=== PATIENT | female | born 1980 | race Native Hawaiian/Other Pacific Islander ===

== ENCOUNTER 2016-10-02 21:42 | Emergency (ER) | payer BC ==
[2016-10-02 21:56] VITALS: BP 142/93; PULSE 104; RESP 18; TEMP 97.7
[2016-10-02] MEDS ORDERED: HYDROmorphone 2 MG/ML 1 ML SYRINGE IM STA (22:34)
[2016-10-02] MEDS ORDERED: DIAZEPAM 5 MG TAB PO STA (22:34)
--- NOTE | 2016-10-02 22:35 | ED ---
General Adult HPI - General Chief complaint: Back Pain/Injury Stated complaint: Back Pain Time Seen by Provider: 10/02/16 22:18 Source: patient, RN notes reviewed, old records reviewed Mode of arrival: wheelchair Limitations: no limitations - History of Present Illness Initial comments: This is a 36-year-old female the ER for evaluation. Patient coming in for evaluation of back pain, severe lower back pain. Neck pain that is chronic in nature secondary to herniated disks. Patient has no new trauma, no recent Tylenol as above O neurological complaints. She does complain of pain going down her left leg worse with activity. Pain was worse nighters ever been, she did have some pain over the holiday. He states she was at work today which is normal job for her and begin expanse increased back pain on the way home. No fevers. Denies drugs or alcohol - Related Data Home Medications Medication Instructions Recorded Confirmed Acetaminophen-Codeine 300-30mg 2 tab PO HS 10/02/16 10/02/16 [Tylenol #3] Amitriptyline HCl [Elavil] 25 mg PO HS 10/02/16 10/02/16 Hair Skin And Nails 1 tab PO DAILY 10/02/16 10/02/16 Methocarbamol [Robaxin] 250 mg PO HS 10/02/16 10/02/16 Montelukast [Singulair] 10 mg PO HS 10/02/16 10/02/16 Omeprazole [PriLOSEC] 20 mg PO BID 10/02/16 10/02/16 Allergies Allergy/AdvReac Type Severity Reaction Status Date / Time Sulfa (Sulfonamide Allergy Severe Anaphylaxis Verified 10/02/16 22:26 Antibiotics) Review of Systems ROS Statement: Those systems with pertinent positive or pertinent negative responses have been documented in the HPI. ROS Other: All systems not noted in ROS Statement are negative. Past Medical History Past Medical History: Asthma Additional Past Medical History / Comment(s): Back pain History of Any Multi-Drug Resistant Organisms: None Reported Past Surgical History: No Surgical Hx Reported Past Psychological History: No Psychological Hx Reported Smoking Status: Never smoker Past Alcohol Use History: Rare Past Drug Use History: None Reported General Exam - General Exam Comments Initial Comments: Negative straight leg raise, no neurological complaint or focal deficits found Limitations: no limitations General appearance: alert, in no apparent distress Head exam: Present: atraumatic, normocephalic, normal inspection Eye exam: Present: normal appearance, PERRL, EOMI. Absent: scleral icterus, conjunctival injection, periorbital swelling ENT exam: Present: normal exam, mucous membranes moist Neck exam: Present: normal inspection. Absent: tenderness, meningismus, lymphadenopathy Respiratory exam: Present: normal lung sounds bilaterally. Absent: respiratory distress, wheezes, rales, rhonchi, stridor Cardiovascular Exam: Present: regular rate, normal rhythm, normal heart sounds. Absent: systolic murmur, diastolic murmur, rubs, gallop, clicks GI/Abdominal exam: Present: soft, normal bowel sounds. Absent: distended, tenderness, guarding, rebound, rigid Extremities exam: Present: normal inspection, full ROM, normal capillary refill. Absent: tenderness, pedal edema, joint swelling, calf tenderness Back exam: Present: normal inspection Neurological exam: Present: alert, oriented X3, CN II-XII intact Psychiatric exam: Present: normal affect, normal mood Skin exam: Present: warm, dry, intact, normal color. Absent: rash Course Vital Signs 10/02/16 21:53 Temperature 97.7 F Pulse Rate 104 H Respiratory 18 Rate Blood Pressure 142/93 O2 Sat by Pulse 96 Oximetry - Reevaluation(s) Reevaluation #1: 10/03/16 00:47 Patient's pain is controlled this point Medical Decision Making - Medical Decision Making 36 female here for evaluation of acute on chronic back pain, patient's pain is now controlled, will continue to follow up on an outpatient basis - Lab Data Lab Results 10/02/16 10/02/16 Range/Units 23:18 23:18 Urine Color Yellow Urine Appearance Clear (Clear) Urine pH 6.5 (5.0-8.0) Ur Specific [place] 1.020 (1.001-1.035) Urine Protein Trace H (Negative) Urine Glucose (UA) Negative (Negative) Urine Ketones Negative (Negative) Urine Blood Negative (Negative) Urine Nitrate Negative (Negative) Urine Bilirubin Negative (Negative) Urine Urobilinogen 2.0 (<2.0) mg/dL Ur Leukocyte Esterase Negative (Negative) Urine HCG, Qual Not Detected (Not Detectd) Disposition Clinical Impression: Mechanical back pain, Strain of lumbar region, Lumbar radiculopathy, Degeneration of intervertebral disc Disposition: HOME SELF-CARE Condition: Good Instructions: Chronic Back Pain (ED), Acute Low Back Pain (ED) Referrals: Janell Arvizu MD [Primary Care Provider] - 1-2 days
[2016-10-02 23:29] LABS: Appearance,Urine Clear (Clear); Bilirubin,Urine Negative (Negative); Glucose,Urine (UA) Negative (Negative); Ketones,Urine Negative (Negative); Leukocyte Esterase,Urine Negative (Negative); Nitrite,Urine Negative (Negative); PH, Urine 6.5 (5.0-8.0); Protein,Urine Trace (Negative); UA Billing (MACRO vs. MICRO) CHEM
== END 2016-10-03 00:56 | disposition home or self-care (01) ==
LOC: EC 21:42
DX: S39.012A Strain of muscle, fascia and tendon of lower back, initial encounter (principal); M54.16 Radiculopathy, lumbar region; J45.909 Unspecified asthma, uncomplicated; Z79.891 Long term (current) use of opiate analgesic; Z79.899 Other long term (current) drug therapy; Z88.2 Allergy status to sulfonamides; X58.XXXA Exposure to other specified factors, initial encounter
CPT/HCPCS: 99283; 96372; 81003; 81025; 87086; J1170

== ENCOUNTER 2016-10-03 14:04 | Emergency (ER) | payer BC ==
[2016-10-03 15:15] VITALS: RESP 20
--- NOTE | 2016-10-03 16:55 | ED ---
General Adult HPI - General Chief complaint: Back Pain/Injury Stated complaint: Back Pain Time Seen by Provider: 10/03/16 16:29 Source: patient, RN notes reviewed Mode of arrival: wheelchair Limitations: no limitations - History of Present Illness Initial comments: This is a 36-year-old female presents with lower back pain. Patient states she has chronic back pain but this is worse than her usual back pain. Patient denies any injury to the lower back. Patient states this started about a week ago with some right sciatic pain. Patient states the pain radiates down both legs. Patient states she is able to walk but this is very painful. Patient denies any numbness or tingling to bilateral lower extremities. Patient states it has been more difficult to walk up the stairs with this pain. Patient denies any dysuria, abdominal pain, ear/chills, nausea/vomiting/diarrhea. Patient denies any chance of being today. Patient states she is treated for the same back pain in the yesterday but it is come right back. Patient has been trying Vicodin for the pain with no improvement. Patient is unable to take anti-inflammatories due to history of ulcer. Patient denies any recent shortness breath, chest pain, hematuria, headache, or visual changes, or any other complaints. - Related Data Home Medications Medication Instructions Recorded Confirmed Acetaminophen-Codeine 300-30mg 2 tab PO HS 10/02/16 10/03/16 [Tylenol #3] Amitriptyline HCl [Elavil] 25 mg PO HS 10/02/16 10/03/16 Methocarbamol [Robaxin] 250 mg PO HS 10/02/16 10/03/16 Montelukast [Singulair] 10 mg PO HS 10/02/16 10/03/16 Omeprazole [PriLOSEC] 20 mg PO BID 10/02/16 10/03/16 HYDROcodone/APAP 5-325MG [[place] 1 tab PO DAILY PRN 10/03/16 10/03/16 5-325] Vitamin C/Biotin [Hair, Skin and 1 tab PO DAILY 10/03/16 10/03/16 Nails] Previous Rx's Medication Instructions Recorded predniSONE 20 mg PO DAILY 5 Days 10/03/16 Allergies Allergy/AdvReac Type Severity Reaction Status Date / Time Sulfa (Sulfonamide Allergy Severe Anaphylaxis Verified 10/03/16 16:32 Antibiotics) Review of Systems ROS Statement: Those systems with pertinent positive or pertinent negative responses have been documented in the HPI. ROS Other: All systems not noted in ROS Statement are negative. Past Medical History Past Medical History: Asthma Additional Past Medical History / Comment(s): Back pain History of Any Multi-Drug Resistant Organisms: None Reported Past Surgical History: No Surgical Hx Reported Past Psychological History: No Psychological Hx Reported Smoking Status: Never smoker Past Alcohol Use History: Rare Past Drug Use History: None Reported General Exam - General Exam Comments Initial Comments: General: The patient is awake and alert, in no distress, and does not appear acutely ill. Neck: The neck is supple, there is no tenderness or JVD. Cardiovascular: There is a regular rate and rhythm. No murmur, rub or gallop is appreciated. Respiratory: Lungs are clear to auscultation, respirations are non-labored, breath sounds are equal. No wheezes, stridor, rales, or rhonchi. Musculoskeletal: There is tenderness to palpation over the lumbar paraspinal muscles, left worse than right. There is mild tenderness over the lumbar spinous processes. No step-offs or deformity noted. No cervical or thoracic midline tenderness. There is pain with range of motion patient has good range of motion, strength 5/5 and Sensation intact. Radial and posterior tibial pulses are 2+ bilaterally. Neurological: A&O x 3. CN II-XII intact, There are no obvious motor or sensory deficits. Coordination appears grossly intact. Speech is normal. Skin: Skin is warm and dry and no rashes or lesions are noted. Psychiatric: Normal mood and affect. Limitations: no limitations Course Vital Signs 10/03/16 10/03/16 15:12 17:11 Temperature 97.3 F L 98.1 F Pulse Rate 95 86 Respiratory 20 20 Rate Blood Pressure 148/92 146/66 O2 Sat by Pulse 98 98 Oximetry Medical Decision Making - Medical Decision Making This is a 36-year-old female presents with an exacerbation of lower back pain. On physical exam is there is tenderness over the lumbar paraspinal muscles, left worse than right. Patient is neurologically intact. Radial posterior tibial pulses are 2+ bilaterally. XR of the lumber spine was done and reviewed: Normal three-view lumbar spine. Reported by Dr. Squires. Discussed results with patient. I discussed that patient will receive Dilaudid in the [facility] today. Patient already has a prescription for Vicodin at home. I discussed the patient will receive a prescription for prednisone. I discussed close follow-up with her PCP. Discussed warm heating pads to the area. Discussed that patient should follow up with PCP in one to 2 days or return to the [facility] for any worsening symptoms or for any further concerns. Patient was receptive to this plan and patient will be discharged home. Patient had a ride home from her father who was also present in the [facility]. Disposition Clinical Impression: Acute exacerbation of chronic low back pain Disposition: HOME SELF-CARE Condition: Good Instructions: Chronic Back Pain (ED) Additional Instructions: Please use medication as discussed. Please use warm heating pads to the area. Please follow-up with family doctor in the next 2 days of symptoms have not improved. Please return to emergency room if the symptoms increase or worsen or for any other concerns. Prescriptions: predniSONE 20 mg PO DAILY 5 Days Referrals: Janell Arvizu MD [Primary Care Provider] - 1-2 days Time of Disposition: 17:09
[2016-10-03] MEDS ORDERED: HYDROmorphone 1 MG/ML 1 ML SYRINGE IM STA (17:02)
--- NOTE | 2016-10-03 17:02 | XR ---
EXAMINATION TYPE: XR lumbar spine 2 or 3V DATE OF EXAM: 10/03/2016 4:59 PM COMPARISON: NONE HISTORY: Pain TECHNIQUE: AP and lateral views of the lumbar spine. Sacral base view. FINDINGS: Pedicles are intact. There 5 lumbar-type vertebral bodies. Discogenic vertebral body height s are preserved. IMPRESSION: 1. Normal three-view lumbar spine.
[2016-10-03 17:12] VITALS: BP 146/66; PULSE 86; TEMP 98.1
== END 2016-10-03 17:12 | disposition home or self-care (01) ==
LOC: EC 14:04
DX: M54.5 Low back pain (principal); G89.29 Other chronic pain; J45.909 Unspecified asthma, uncomplicated; Z79.899 Other long term (current) drug therapy; Z88.2 Allergy status to sulfonamides
CPT/HCPCS: 99283; 96372; 72100; J1170

== ENCOUNTER → 2016-10-16 | Outpatient (CLI) | payer BC ==
--- NOTE | 2016-10-16 07:58 | MR ---
EXAMINATION TYPE: MR lumbar spine wo con DATE OF EXAM: 10/16/2016 7:24 AM COMPARISON: MRI lumbar spine December 01, 2011. Lumbar spine x-ray October 03, 2016. HISTORY: Low back pain per order. Chronic pain for 17 years causing pain into bilateral buttocks and left side per patient. TECHNIQUE: Multiplanar, multisequence imaging of the lumbar spine is performed without IV contrast. FINDINGS: Sagittal images of the lumbar spine show vertebral body heights and alignment to appear sat isfactory. There is disc desiccation redemonstrated at L4-L5 level with new disc desiccation noted at L5-S1 level. There is mild disc space narrowing L4-L5 level seen otherwise disc space heights are fa irly well-maintained. There are posterior disc herniations at L4-L5 and L5-S1 level redemonstrated wi th more prominent disc herniation now seen at L4-L5 level versus prior on sagittal images. The conus medullaris is normal in position and signal. The bone marrow signal intensity is within normal limit s. No significant spurring is seen. Axial images show the T12-L1, L1-L2, L2-L3, and L3-L4 levels all to remain within normal limits. Axial images at the L4-L5 level show large broad-based central disc protrusion measuring 8 mm anterio r posterior dimension by 18 mm in transverse dimension seen best on sagittal image 6 and axial image 8. There is effacement of the anterior thecal sac. Bilateral neural foramina remain patent. Axial images at the L5-S1 level show smaller broad-based central disc protrusion on axial image 4. Sp inal canal is preserved. Bilateral neural foramina are patent. Uterus is slightly retroverted in shape. There is partial visualization of well-circumscribed T2 hypo intense lesion in the posterior uterine myometrium on sagittal image 3 consistent with intrauterine f ibroid. IMPRESSION: Increasing degenerative changes in the lower lumbar spine since 2011 MRI with more promin ent disc herniation now present at L4-L5 level.
== END | disposition home or self-care (01) ==
LOC: RADMRIMAIN 06:48
PROVIDERS: ATTEND Internal Medicine
DX: M51.26 Other intervertebral disc displacement, lumbar region (principal); M47.816 Spondylosis without myelopathy or radiculopathy, lumbar region
CPT/HCPCS: 72148

== ENCOUNTER → 2017-02-13 | Outpatient (CLI) | payer BC ==
[2017-02-09 14:35] VITALS: BMI 33.6
[2017-02-13 14:20] VITALS: BP 134/92; PULSE 103; RESP 16
--- NOTE | 2017-02-13 14:48 | P.HPIM ---
History of Present Illness H&P Date: 02/13/17 Chief Complaint: low back and LLE pain This is a 36-year-old patient referred by Dr. Arvizu for chronic pain in low back with radiation to both buttocks and left lower extremity with numbness/ tingling. Patient has been taking medications from primary care physician including Tylenol #3 medications with some relief. Patient denies adverse drug effects from medications. Patient also denies new-onset weakness, bowel/ bladder incontinence, or any other signs or symptoms of cauda equina syndrome. There are no signs of acute intoxication, and no indications of medication diversion or overuse. Patient notes that pain worsens significantly with standing and walking, and improves with sitting, rest, heat, and medication. Patient has used several types of medications for pain, including NSAIDS, OPIOIDS, TRAMADOL Patient HAS NOT had surgery. Patient HAS NOT had injections previously. Patient HAS NOT had physical therapy recently. In addition to above, 13-point review of systems is also negative for chest pain , shortness of breath, changes in vision, changes in hearing, new onset weakness , abdominal pain, diarrhea, extreme fatigue, malaise, fever, skin changes, homicidal or suicidal ideation, or bowel or bladder incontinence. Vital Signs: Reviewed in EMR Gen: WDWN, AAOx3, NAD HEENT: NCAT, EOMI, hearing grossly normal Pulm: resp unlabored Abd: soft, NT, ND Neck: supple, trachea midline ROM in flexion lumbar spine: reduced ROM in extension lumbar spine: reduced Lumbar paravertebral tenderness: + Facet loading: + bilateral SI joint tenderness: + LLE > RLE Arcadio's test: + LLE Straight leg raise: + LLE at 15 degrees Lower extremity: decreased ROM and dorsiflexion/plantarflexion strength secondary to pain Neuro: CN II-XII grossly intact Past Medical History Past Medical History: Asthma, GERD/Reflux Additional Past Medical History / Comment(s): Back pain radiating down lt leg History of Any Multi-Drug Resistant Organisms: None Reported Past Surgical History: No Surgical Hx Reported Additional Past Surgical History / Comment(s): wisdom teeth Past Anesthesia/Blood Transfusion Reactions: Family History of Problems w/ Anesthesia, Motion Sickness Additional Past Anesthesia/Blood Transfusion Reaction / Comment(s): grandma has had hard time coming out of the anesthesia Past Psychological History: No Psychological Hx Reported Smoking Status: Never smoker Past Alcohol Use History: Rare Past Drug Use History: None Reported - Past Family History Mother Family Medical History: No Reported History Medications and Allergies Home Medications Medication Instructions Recorded Confirmed Type Acetaminophen-Codeine 300-30mg 2 tab PO HS 10/02/16 02/09/17 History [Tylenol #3] Amitriptyline HCl [Elavil] 25 mg PO HS 10/02/16 02/09/17 History Methocarbamol [Robaxin] 750 mg PO HS 10/02/16 02/13/17 History Montelukast [Singulair] 10 mg PO HS 10/02/16 02/09/17 History Omeprazole [PriLOSEC] 20 mg PO BID 10/02/16 02/09/17 History Vitamin C/Biotin [Hair, Skin and 1 tab PO DAILY 10/03/16 02/09/17 History Nails] Fexofenadine HCl [Stephanie Allergy] 180 mg PO DAILY 02/09/17 02/09/17 History Fluticasone Nasal [place] [Flonase 1 spray EA NOSTRIL DAILY 02/09/17 02/09/17 History Nasal [place]] Allergies Allergy/AdvReac Type Severity Reaction Status Date / Time Sulfa (Sulfonamide Allergy Severe Anaphylaxis Verified 02/13/17 13:57 Antibiotics) amoxicillin Allergy Anaphylaxis Verified 02/13/17 13:57 Penicillins Allergy Anaphylaxis Verified 02/13/17 13:57 Results Comments: MRI lumbar spine dated 10/16/2016 demonstrates, at the L4-L5 level, large broad- based central disc protrusion with effacement of the anterior thecal sac and patent bilateral neural foramina. At the L5-S1 level, there is smaller broad- based central disc protrusion with a preserved spinal canal and preserved bilateral neural foramina. Assessment and Plan (1) Lumbar disc herniation Status: Chronic (2) Lumbar radiculopathy Status: Chronic (3) Lumbar spinal stenosis Status: Chronic Plan: 1. Explanation: Opioid and psychological risk scores were reviewed. Diagnoses , prognoses, and multiple treatment options including but not limited to physical therapy, interventional therapies, adjuvant medical therapies, narcotic medication therapies, and surgery were discussed with the patient and all questions were answered to the patient's satisfaction. 2. Opioid agreement: no opioids prescribed 3. Counseling: The patient was counseled extensively on SMOKING CESSATION, BODY MASS INDEX, EXERCISE. Specifically, the patient was instructed regarding the importance of smoking cessation, obesity, and exercise in the context of both chronic pain and overall health. 4. Procedures: LESI series (patient would like to begin with just one) 5. Consultations: none 6. Investigations: none 7. Medications: none prescribed 8. Disposition: f/u for procedure as scheduled PQRS measures: 1-Patient's medications are documented in the chart. 2-Tobacco use is negative 3-Patient has not had a pneumococcal vaccine. 4-Advanced care planning discussed, patient unable to give. 5-Opioid contract NOT signed with the patient. 6-Pain positive, follow-up visit or procedure scheduled 7-Patient's blood pressure measured and documented, and patient will follow up with the primary care due to hypertension. 8-Patient's weight was measured, and body mass index ABOVE the normal limits, and counseling was done. Patient instructed to follow up with PCP. 9-Patient WAS NOT identified as an unhealthy alcohol user. Time with Patient: Greater than 30
== END ==
LOC: PNWHC3 13:23
PROVIDERS: ATTEND Anesthesiology
DX: M48.06 Spinal stenosis, lumbar region (principal); M51.16 Intervertebral disc disorders with radiculopathy, lumbar region; K21.9 Gastro-esophageal reflux disease without esophagitis; G89.29 Other chronic pain; Z87.891 Personal history of nicotine dependence
CPT/HCPCS: 99211

== ENCOUNTER 2017-03-20 08:58 | Day surgery (SDC) | payer BC ==
[2017-03-16 09:54] VITALS: BMI 33.6
[~2017-03-20 08:58] MED LIST: LACTATED RINGERS 1,000 ML IV SCH
[2017-03-20 09:19] VITALS: RESP 16; TEMP 98
[2017-03-20] MEDS ORDERED: LIDOCAINE 1% 20 ML VIAL (10MG/ML) FOR IV START INTRADERMA ONE (09:22)
[2017-03-20 09:26] LABS: Glucose,Whole Blood 84 mg/dL (75-99)
[2017-03-20] MEDS ORDERED: MIDAZOLAM 2 MG/2 ML VIAL ONE (10:06)
[2017-03-20] MEDS ORDERED: IOHEXOL 180 MG/ML 1 ML ML ONE (10:06)
[2017-03-20] MEDS ORDERED: DEXAMETHASONE SOD PHOS (MDV) 100 MG/10 ML VIAL ONE (10:06)
[2017-03-20] MEDS ORDERED: fentaNYL (PF) 50 MCG/ML 2 ML AMP ONE (10:06)
--- NOTE | 2017-03-20 10:22 | P.PCN ---
Date of Procedure: 03/20/17 Preoperative Diagnosis: Postoperative Diagnosis: Procedure(s) Performed: PREOPERATIVE DIAGNOSIS: 1- Lumbar herniated Disc Diseases 2-Lumbar radicullopathy 3- lumbar spinal stenosis POSTOPERATIVE DIAGNOSIS: Same as pre op diagnosis . PROCEDURE 1. Lumbar epidural steroid injection under fluoroscopic guidance at the L5-S1 level. 2. Lumbar epidurogram. ANESTHESIA: Local with 1% lidocaine 3 ml and IV sedation with Versed 2 mg , and fentanyle 100 Mcg EBL: Minimal PROCEDURE INDICATION: The patient with low back pain and radiculitis symptoms unresponsive to conservative treatment. Fluoroscopy was used to optimize visualization of the needle placement and to maximize safety. PROCEDURE DESCRIPTION / TECHNIQUE: The patient was seen and identified in the preoperative area. Risks, benefits , complications including but not limited to infections ,bleeding ,allergic reaction to the medications ,nerve damage and not complete pain releife , and alternatives were discussed with the patient. The patient agreed to proceed with the procedure and signed the consent. IV was started, and vital signs were stable. Patient was taken to the OR and time out was completed. The patient was placed in the prone position on procedure table and a pillow was placed under the abdomen to reduce lumbar lordosis. The lumbosacral area was prepped and draped in the usual sterile fashion.ere closely monitored during the procedure. Conscious sedation was used during the procedure to decrease patient's anxiety. Vital signs was monitered during the entire procedure. Using anterior-posterior fluoroscopy, the L5-S1 interlaminar space was identified and the skin over this site was marked and then infiltrated with 1% lidocaine subcutaneously. Subsequently, a 20-gauge Tuohy epidural needle was inserted and advanced toward the epidural space using the ``Loss of resistance technique and guided by AP and lateral fluoroscopy. The correct needle position in the epidural space was verified with the injection of 2 mL of the water soluble contrast dye Omnipaque 180 contrast and observing an excellent epidurogram with the epidural spread of the dye, after negative aspiration for blood and CSF and in the absence of paresthesias. Again after negative aspiration, a 6 ml mixture containing 20 mg of Dexamethasone and 2 ml of preservative free Normal Saline, and 2 ml of preservative free lidocaine 1% solution was injected and a washout of epidurogram was seen. Needle was withdrawn intact, skin was cleansed, and bandages were applied. COMPLICATIONS: None DISPOSITION / PLANS: The patient was placed in a supine position and transferred to the recovery area in a stable condition for observation. There was no evidence of lower extremity motor or sensory deficit after the procedure. Patient was discharged from the recovery room after meeting discharge criteria. Home discharge instructions were given to the patient by the staff. The patient was reexamined prior to discharge. The patient will schedule a follow up in the clinic in 2-4 weeks. Implants: Indications for Procedure: Operative Findings: Description of Procedure:
[2017-03-20] MEDS ORDERED: IV FLUID CONTINUATION 1,000 ML IV ONE (10:28)
[2017-03-20 10:44] VITALS: BP 116/80; PULSE 97
--- NOTE | 2017-03-20 10:52 | FL ---
EXAMINATION TYPE: FL guided pain mgmt statistic DATE OF EXAM: 03/20/2017 HISTORY: Flouroscopy time 2 seconds of fluoroscopy provided. IMPRESSION: 1. Fluoroscopy time.
== END 2017-03-20 11:12 | disposition home or self-care (01) ==
LOC: ORPAIN 08:58
PROVIDERS: ATTEND Specialist
DX: M51.16 Intervertebral disc disorders with radiculopathy, lumbar region (principal); M48.06 Spinal stenosis, lumbar region; Z88.1 Allergy status to other antibiotic agents; Z88.0 Allergy status to penicillin; Z88.2 Allergy status to sulfonamides
CPT/HCPCS: 81025; 62323; J2250; Q9965; J3010; J1100

== ENCOUNTER 2017-04-19 10:35 | Day surgery (SDC) | payer BC ==
[2017-04-12 17:44] VITALS: BMI 32.8
[2017-04-19 10:47] VITALS: TEMP 98.2
[2017-04-19] MEDS ORDERED: LACTATED RINGERS 1,000 ML IV ONE (10:50)
[2017-04-19] MEDS ORDERED: LIDOCAINE 1% 20 ML VIAL (10MG/ML) FOR IV START INTRADERMA ONE (10:50)
[2017-04-19] MEDS ORDERED: LACTATED RINGERS 1,000 ML IV SCH (11:00)
--- NOTE | 2017-04-19 11:27 | P.PCN ---
Date of Procedure: 04/19/17 Preoperative Diagnosis: Postoperative Diagnosis: Procedure(s) Performed: Implants: Surgeon: Randall Puente Pathology: none sent Condition: stable Disposition: PACU Indications for Procedure: Operative Findings: Description of Procedure: PREOPERATIVE DIAGNOSIS: 1-Lumbar radiculitis. POSTOPERATIVE DIAGNOSIS: 1-Lumbar radiculitis. PROCEDURE 1. Lumbar epidural steroid injection under fluoroscopic guidance at the L4-L5 level. 2. Lumbar epidurogram. ANESTHESIA: Local with 1% lidocaine; IV sedation with Versed/fentanyl. EBL: Minimal PROCEDURE INDICATION: The patient with low back pain and radiculitis symptoms unresponsive to conservative treatment. Fluoroscopy was used to optimize visualization of the needle placement and to maximize safety. PROCEDURE DESCRIPTION / TECHNIQUE: The patient was seen and identified in the preoperative area. Risks, benefits, complications, and alternatives were discussed with the patient, including but not limited to bleeding, infection, nerve damage, allergic reactions to medications, and incomplete pain relief. The patient agreed to proceed with the procedure and signed the consent after all questions were answered. IV was started, and vital signs were stable. Patient was taken to the OR and time out was completed to confirm patient position, procedure, laterality of pain, and allergies. The patient was placed in the prone position on procedure table and a pillow was placed under the abdomen to reduce lumbar lordosis. The lumbosacral area was prepped and draped in the usual sterile fashion. Critical pause was taken. Vital signs were closely monitored during the procedure. Conscious sedation was used during the procedure to decrease patients anxiety. Using anterior-posterior fluoroscopy, the L4-L5 interlaminar space was identified and the skin over this site was marked and then infiltrated with 1% lidocaine subcutaneously in a left paramedian fashion. Subsequently, a 20-gauge 3.5-inch Tuohy epidural needle was inserted and advanced toward the epidural space using the Loss of resistance technique and guided by AP and lateral fluoroscopy. The correct needle position in the epidural space was verified with the injection of 2 mL of the water soluble contrast dye Omnipaque 300 contrast and observing an excellent epidurogram with the epidural spread of the dye, after negative aspiration for blood and CSF and in the absence of paresthesias. Again after negative aspiration, a 8 ml mixture containing 20 mg of PF Decadron and 5 ml of preservative free Normal Saline, and 2 ml of preservative free lidocaine 1% solution was injected and a washout of epidurogram was seen. Needle was withdrawn intact, skin was cleansed, and bandages were applied. COMPLICATIONS: None COMMENTS: DISPOSITION / PLANS: The patient was placed in a supine position and transferred to the recovery area in a stable condition for observation. There was no evidence of lower extremity motor or sensory deficit after the procedure. Patient was discharged from the recovery room after meeting discharge criteria. Home discharge instructions were given to the patient by the staff. The patient was reexamined prior to discharge and there were no issues. The patient will schedule a follow up in the clinic in 2-4 weeks. Recommend using longer Tuohy for next LESI.
[2017-04-19] MEDS ORDERED: IV FLUID CONTINUATION 1,000 ML IV ONE (11:37)
--- NOTE | 2017-04-19 11:39 | FL ---
Fluoroscopy History: PAIN 23 sec fluoro
[2017-04-19 12:22] VITALS: BP 124/73; PULSE 98; RESP 18
== END 2017-04-19 12:05 | disposition home or self-care (01) ==
LOC: ORPAIN 10:35
PROVIDERS: ATTEND Anesthesiology
DX: M54.16 Radiculopathy, lumbar region (principal); Z88.0 Allergy status to penicillin; Z88.2 Allergy status to sulfonamides
CPT/HCPCS: 81025; 62323; J2250; J1100; J3010; 99152; 99153

== ENCOUNTER 2017-06-05 10:00 | Day surgery (SDC) | payer BC ==
[2017-06-01 08:39] VITALS: BMI 33.6
[~2017-06-05 10:00] MED LIST changes: +LIDOCAINE 1% 20 ML VIAL (10MG/ML) FOR IV START INTRADERMA PRN
[2017-06-05 10:39] VITALS: TEMP 98.1
[2017-06-05] MEDS ORDERED: LACTATED RINGERS 1,000 ML IV ONE (10:41)
[2017-06-05] MEDS ORDERED: PROPOFOL 10 MG/ML 20 ML VIAL IV ONE (11:28)
[2017-06-05] MEDS ORDERED: GLYCOPYRROLATE 0.2 MG/ML 2 ML VIAL ONE (11:28)
[2017-06-05] MEDS ORDERED: LIDOCAINE 1% INJ 10MG/ML (20 ML MDV) ONE (11:28)
[2017-06-05 11:53] VITALS: RESP 16
--- NOTE | 2017-06-05 12:03 | P.PCN ---
Date of Procedure: 06/05/17 Preoperative Diagnosis: Postoperative Diagnosis: Procedure(s) Performed: Procedure: Esophagogastroduodenoscopy and biopsy. Preoperative diagnosis: Chronic reflux symptoms, symptomatic despite BID therapy with PPI. Postoperative diagnosis: 1. Small hiatal hernia with no obvious esophagitis or complicated reflux disease. 2. Mild antral gastritis. 3 Multiple biopsies obtained from the duodenum, antrum, distal esophagitis and proximal esophagus. Preparation and sedation: Was provided by anesthesia. Brief clinical history: The patient is a 37-year-old female who is referred for this evaluation for the above reasons. I have evaluated her back in December 2008 and at that time she had changes on biopsies consistent with chronic reflux esophagitis. The patient was on Nexium back then and she apparently continued to be on medications uninterrupted except for an 18 month period when she was not having insurance. Now she is back taking her medications Twice-A-Day and and yet is experiencing heartburn and reflux. No dysphagia or other alarm symptoms. Procedure: With the patient on her left lateral decubitus position and after informed consent and adequate sedation, I passed the Olympus-GIF 160 video upper endoscope through the cricopharyngeus down the esophagus. GE junction was around 38 cm from the incisors and there was a small sliding hiatal hernia. The esophagus did not show any obvious esophagitis or complicated reflux disease including strictures or Kaur's esophagus. The endoscope was then passed into the stomach which was insufflated with air and inspected in detail including the retroflex view in the cardia. There was some mottling and erythema in the antrum but no ulcers or erosions. Pyloric channel, duodenal bulb, post bulbar area and descending duodenum did not show any obvious abnormalities. Because of her symptoms, I obtained multiple biopsies from the duodenum in addition to biopsies from the antrum and the esophagus, both distally and proximally, before the endoscope was withdrawn. The patient tolerated the procedure well. Plan: The patient was reassured. Will await biopsy results and make further plans based on her course and biopsy results. She will follow-up with you as planned and I will be happy to see in the office if her symptoms persist. Implants: Indications for Procedure: Operative Findings: Description of Procedure:
[2017-06-05 12:30] VITALS: BP 117/76; PULSE 86
== END 2017-06-05 12:51 | disposition home or self-care (01) ==
LOC: ORWHC2ENDO 10:00
DX: K29.50 Unspecified chronic gastritis without bleeding (principal); K21.0 Gastro-esophageal reflux disease with esophagitis; K44.9 Diaphragmatic hernia without obstruction or gangrene; J45.990 Exercise induced bronchospasm; Z79.891 Long term (current) use of opiate analgesic; Z79.899 Other long term (current) drug therapy; Z88.0 Allergy status to penicillin; Z88.2 Allergy status to sulfonamides
CPT/HCPCS: 81025; 88305; 88342; 43239; J2001; J2704

== ENCOUNTER → 2019-07-26 | Outpatient (CLI) | payer BC ==
--- NOTE | 2019-07-26 18:58 | CT ---
EXAMINATION TYPE: CT abdomen w con DATE OF EXAM: 07/26/2019 COMPARISON: None INDICATION: right sided abdominal pain DLP: 1044.4 mGycm, Automated exposure control for dose reduction was used. CONTRAST: 100 mL of Isovue 300. Study performed with Oral Contrast TECHNIQUE: Axial images were obtained from above the diaphragm to the iliac crests in the axial plane at 5 mm thick sections. Reconstructed images are reviewed on the computer in the coronal plane. FINDINGS: Limited CT sections are obtained the lung bases. The lung bases are clear. CT ABDOMEN: Liver: Normal Spleen: Normal Pancreas: Normal Adrenal glands: The adrenal glands are normal. Gallbladder: Normal Kidneys: No masses are evident. No hydronephrosis is present. No cysts are present. Delayed images were obtained through the kidneys, which remain unremarkable. Aorta: Vascular calcification is within the aorta. Inferior vena cava: Normal. IMPRESSIONS: 1. No acute abdominal process.
== END | disposition home or self-care (01) ==
LOC: RADCTMAIN 09:09
PROVIDERS: ATTEND Internal Medicine
DX: R10.31 Right lower quadrant pain (principal)
CPT/HCPCS: 74160; Q9967

== ENCOUNTER → 2019-10-10 | Outpatient (CLI) | payer BC ==
--- NOTE | 2019-10-10 10:27 | US ---
EXAMINATION TYPE: US pelvic complete DATE OF EXAM: 10/10/2019 COMPARISON: NONE CLINICAL HISTORY: R10.31 RT LOWER QUADRANT PAIN. History of ovarian cysts and uterine fibroids, irreg ular cycles, 0 TECHNIQUE: . Transabdominal sonographic images of the pelvis were acquired. Transvaginal sonographi c images were medically necessary to better assess the following anatomy: ovaries Date of LMP: 3 to 4 weeks ago EXAM MEASUREMENTS: Uterus: 8.6 x 5.3 x 5.5 cm Endometrial Stripe: 1.2 cm Right Ovary: 3.5 x 2.3 x 2.0 cm Left Ovary: 3.3 x 1.8 x 2.1 cm 1. Uterus: retroverted, heterogeneous, multiple pedunculated fibroids with largest measuring 4.0 x 3 .8 x 5.1cm 2. Endometrium: measures wnl for patient's LMP 3. Right Ovary: wnl 4. Left Ovary: wnl 5. Bilateral Adnexa: wnl 6. Posterior cul-de-sac: small amount of free fluid Markedly heterogeneous prominent lobulated uterus suggesting underlying fibroids. Endometrial stripe deviated anteriorly due to posterior intramural fibroid within normal limits for secretory phase of m enstrual cycle. Tiny nabothian cyst on transvaginal imaging. Both ovaries seen on transvaginal imaging with scattered peripheral follicles. No concerning adnexal mass. Trace free fluid in pelvic cul-de-sac towards end of study. IMPRESSION: Heterogeneous fibroid uterus. Distinct fibroids can be better evaluated and characterized with pelvic MRI if desired.
== END | disposition home or self-care (01) ==
LOC: RADUSWWP 09:00
PROVIDERS: ATTEND Internal Medicine
DX: D25.9 Leiomyoma of uterus, unspecified (principal)
CPT/HCPCS: 76830; 76856

== ENCOUNTER → 2020-03-17 | Outpatient (CLI) | payer BC ==
--- NOTE | 2020-03-17 08:58 | CT ---
EXAMINATION TYPE: CT chest w con DATE OF EXAM: 03/17/2020 COMPARISON: Outside x-ray report February 19, 2020. HISTORY: pneumonia, recent abnormal x-ray. CT DLP: 477 mGycm. Automated Exposure Control for Dose Reduction was Utilized. TECHNIQUE: CT scan of the thorax is performed following with IV Contrast, patient injected with 100 mL of Isovue 300. FINDINGS: LUNGS: Corresponding to x-ray report there is some linear scarring narrowing less than the lingula in feriorly. There is also linear scarring or atelectasis inferiorly in the right middle lobe and anter ior-inferior aspect of the right lower lobe towards the periphery. No suspicious residual consolidati on or groundglass opacity. There is no pleural effusion or pneumothorax seen bilaterally. The trache obronchial tree is patent. MEDIASTINUM: There are no greater than 1 cm hilar or mediastinal lymph nodes. No cardiomegaly and/o r pericardial effusion is seen. OTHER: Subcentimeter low dense lesion right kidney laterally axial image 63 is only partially imaged presumed benign. Slight scoliotic curvature. IMPRESSION: Scarring and/or atelectatic change as detailed above. No suspicious residual acute infilt rate.
== END | disposition home or self-care (01) ==
LOC: RADCTMAIN 07:21
PROVIDERS: ATTEND Internal Medicine
DX: J18.9 Pneumonia, unspecified organism (principal)
CPT/HCPCS: 71260; Q9967

== ENCOUNTER 2024-03-04 10:14 | Day surgery (SDC) | payer BC ==
[2024-03-04] MEDS ORDERED: LIDOCAINE 1% (10MG/ML) FOR IV START INTRADERMA PRN (10:30)
[2024-03-04 10:52] VITALS: TEMP 97.5
[2024-03-04] MEDS: IV FLUID CONTINUATION 1,000 ML IV ONE (10:52)
[2024-03-04] MEDS: LACTATED RINGERS 1,000 ML IV SCH (10:53)
[2024-03-04] MEDS ORDERED: PROPOFOL 10 MG/ML 20 ML VIAL IV ONE (11:36)
[2024-03-04] MEDS ORDERED: LIDOCAINE 1% INJ 10MG/ML (20 ML MDV) ONE (11:36)
--- NOTE | 2024-03-04 11:48 | P.PCN ---
Date of Procedure: 03/04/24 Procedure(s) Performed: BRIEF HISTORY: Patient is a 43-year-old, pleasant, female scheduled for an elective upper endoscopy as a part of evaluation of longstanding history of GERD of 15 years duration. Presently on Prilosec 20 mg twice daily and still has breakthrough symptoms throughout the day.quentin. PROCEDURE PERFORMED: Esophagogastroduodenoscopy biopsy. PREOPERATIVE DIAGNOSIS: Longstanding history of GERD. IV sedation per anesthesia. PROCEDURE: After informed consent was obtained, the patient was brought into the endoscopy unit. IV sedation was administered by Anesthesia under continuous monitoring. Initially the Olympus GIF-140 video endoscope was inserted into the mouth. Esophagus intubated without any difficulty. It was gradually advanced into the stomach and duodenum and carefully examined. The bulb and the second part of the duodenum appeared normal. The scope at this time was withdrawn to the stomach, adequately insufflated with air, and upon careful examination, mucosa of the antrum, body, cardia and the fundus appeared normal. Multiple small gastric polyps noted which were biopsied. The scope was then withdrawn into the esophagus. The GE junction was located at 39 cm from the incisors. The esophagus appeared normal. There were no erosions or ulcerations seen, biopsies were adenomatous. And the patient tolerated the procedure well. IMPRESSION: 1. Multiple small gastric polyp s/p biopsy. 2. Normal-appearing esophagus with no evidence of esophagitis or Kaur's esophagus. RECOMMENDATIONS: The findings of this examination were discussed with the patient as well as her family. She was advised to follow-up with the biopsy results. Continue with Prilosec 20 mg daily and follow antireflux measures..
[2024-03-04 12:22] VITALS: BP 138/78; PULSE 90; RESP 18
== END 2024-03-04 12:23 | disposition home or self-care (01) ==
LOC: ORWHC2ENDO 10:14
PROVIDERS: ATTEND Internal Medicine Gastroenterology
DX: K31.7 Polyp of stomach and duodenum (principal); K21.9 Gastro-esophageal reflux disease without esophagitis; E78.5 Hyperlipidemia, unspecified; J45.909 Unspecified asthma, uncomplicated; Z88.2 Allergy status to sulfonamides; Z98.890 Other specified postprocedural states; Z88.0 Allergy status to penicillin; Z79.51 Long term (current) use of inhaled steroids; Z79.899 Other long term (current) drug therapy
CPT/HCPCS: 81025; 88305; 43239; J2001; J2704

== ENCOUNTER → 2024-03-24 | Outpatient (CLI) | payer BC ==
--- NOTE | 2024-03-24 19:02 | CT ---
EXAMINATION TYPE: CT abdomen wo/w con CT DLP: 2435.1 mGycm, Automated exposure control for dose reduction was used. 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 TECHNIQUE: Axial CT abdomen wo/w con;Sagittal and coronal reformats were created on a separate works tation. Contrast used:80 mL of Isovue 300 without and with IV Contrast, (none if empty) Oral contrast used: with Oral Contrast (none if empty) FINDINGS: LOWER CHEST: Unremarkable ABDOMEN LIVER: Unremarkable GALLBLADDER AND BILE DUCTS: Unremarkable. PANCREAS: Unremarkable. SPLEEN: Unremarkable. ADRENAL GLANDS: Unremarkable. KIDNEYS AND URETERS: No evidence of hydronephrosis or renal calculus. The ureters are unremarkable. Right renal cortex fat-containing lesion measuring 18 x 15 mm compatible with angiomyolipoma. No susp icious renal lesions. PELVIS BLADDER: Fibroid uterus with REPRODUCTIVE: Fibroid uterus with IUD in place. ABDOMEN & PELVIS STOMACH AND BOWEL: No evidence of bowel obstruction. PERITONEUM/RETROPERITONEUM: No evidence of pneumoperitoneum or free fluid. VASCULATURE: No evidence of aortic aneurysm. MUSCULOSKELETAL: No acute osseous abnormalities, disc bulge annular protrusion at L4-L5 with at least mild spinal canal stenosis. LYMPH NODES: No gross evidence for lymphadenopathy. SOFT TISSUE/ABDOMINAL WALL: Unremarkable IMPRESSION: 1. 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 No suspicious renal lesion s. 2. No evidence for acute abdominal process. 3. IUD in appropriate position. 4. Fat-containing umbilical hernia. 5. Enlarged Fibroid uterus. 6. Disc bulge/protrusion at L4-L5 with at least mild spinal canal stenosis.
== END | disposition home or self-care (01) ==
LOC: RADCTMAIN 17:36
PROVIDERS: ATTEND Urology
DX: D41.01 Neoplasm of uncertain behavior of right kidney (principal); D25.9 Leiomyoma of uterus, unspecified; K42.9 Umbilical hernia without obstruction or gangrene; M48.061 Spinal stenosis, lumbar region without neurogenic claudication; M51.26 Other intervertebral disc displacement, lumbar region; M51.36 Other intervertebral disc degeneration, lumbar region
CPT/HCPCS: 74170; Q9967

== ENCOUNTER 2024-06-20 21:51 | Inpatient (IN) | payer BC ==
--- NOTE | 2024-06-20 22:17 | ED ---
Arrhythmia/Palpitations HPI - General Chief Complaint: Arrhythmia/Palpitations Stated Complaint: High Heart Rate Time Seen by Provider: 06/20/24 22:14 Source: patient, RN notes reviewed Mode of arrival: ambulatory Limitations: no limitations - History of Present Illness Initial Comments: 44-year-old female presenting with palpitations x 1 week with shortness of breath. Patient states for the past 2 weeks she has been ill with what she believed to be bronchitis. States several of her coworkers also had cough and congestion. She has been having productive cough seems to be somewhat improving, however over the past 2 days patient has noticed that her heart rate feels very high and "feels different" while beating in her chest. She has never had this before. She does have a history of asthma denies any cardiac conditions. Denies blood thinners, recent travel, recent surgeries, leg swelling. She does have high platelets which she is on a medication for. Denies blood thinners. Denies fever, chills, vomiting. - Related Data Home Medications Medication Instructions Recorded Confirmed Acetaminophen-Codeine 300-30mg 2 tab PO HS 10/02/16 03/04/24 [Tylenol #3] Amitriptyline HCl [Elavil] 25 mg PO HS 10/02/16 03/04/24 Methocarbamol [Robaxin] 750 mg PO HS 10/02/16 03/04/24 Montelukast [Singulair] 10 mg PO HS 10/02/16 03/04/24 Omeprazole [PriLOSEC] 20 mg PO BID 10/02/16 03/04/24 Vitamin C/Biotin [Hair, Skin and 1 tab PO DAILY 10/03/16 03/04/24 Nails] Fexofenadine HCl [Stephanie Allergy] 180 mg PO DAILY 02/09/17 03/04/24 Fluticasone Nasal [place] [Flonase 1 spray EA NOSTRIL DAILY 02/09/17 03/04/24 Nasal [place]] Atorvastatin [Lipitor] 20 mg PO HS 02/29/24 03/04/24 Multivitamins, Thera [Multivitamin 1 tab PO DAILY 02/29/24 03/04/24 (formulary)] traZODone HCL [Desyrel] 50 mg PO HS PRN 02/29/24 03/04/24 Allergies Allergy/AdvReac Type Severity Reaction Status Date / Time Sulfa (Sulfonamide Allergy Severe Anaphylaxis Verified 06/20/24 22:02 Antibiotics) amoxicillin Allergy Anaphylaxis Verified 06/20/24 22:02 Penicillins Allergy Anaphylaxis Verified 06/20/24 22:02 Review of Systems ROS Statement: Those systems with pertinent positive or pertinent negative responses have been documented in the HPI. ROS Other: All systems not noted in ROS Statement are negative. Past Medical History Past Medical History: Asthma, GERD/Reflux, Hyperlipidemia, Musculoskeletal Disorder Additional Past Medical History / Comment(s): Back Pain Radiating Down CHANDLER LEGS, SMITH LT Leg. hx. uterine fibroids. worsening acid reflux x2 months. History of Any Multi-Drug Resistant Organisms: None Reported Past Surgical History: No Surgical Hx Reported Additional Past Surgical History / Comment(s): EXC [place] Teeth. PAIN PROC. EGD. uterine artery embolization. Past Anesthesia/Blood Transfusion Reactions: Family History of Problems w/ Anesthesia, Motion Sickness Additional Past Anesthesia/Blood Transfusion Reaction / Comment(s): Grandma has had hard time coming out of Anesthesia X1 W/ CAT SCAN W/ SEDATION. Past Psychological History: No Psychological Hx Reported Smoking Status: Never smoker Past Alcohol Use History: None Reported Past Drug Use History: None Reported - Past Family History Mother Family Medical History: No Reported History General Exam Limitations: no limitations General appearance: alert, in no apparent distress Head exam: Present: atraumatic, normocephalic, normal inspection ENT exam: Present: normal exam, mucous membranes moist Neck exam: Present: normal inspection. Absent: tenderness, meningismus, lymphadenopathy Respiratory exam: Present: normal lung sounds bilaterally. Absent: respiratory distress, wheezes, rales, rhonchi, stridor Cardiovascular Exam: Present: normal rhythm, tachycardia, normal heart sounds. Absent: systolic murmur, diastolic murmur, rubs, gallop, clicks GI/Abdominal exam: Present: soft, normal bowel sounds. Absent: distended, tenderness, guarding, rebound, rigid Neurological exam: Present: alert, oriented X3 Psychiatric exam: Present: normal affect, normal mood Skin exam: Present: warm, dry, intact, normal color. Absent: rash Course Vital Signs 06/20/24 06/21/24 06/21/24 21:59 00:02 03:00 Temperature 98.4 F Pulse Rate 122 H 116 H 120 H Respiratory 20 20 20 Rate Blood Pressure 139/90 158/90 152/90 O2 Sat by Pulse 91 L 91 L 90 L Oximetry EKG Findings - EKG Results: EKG: interpreted by KANDYD (EKG reveals sinus tachycardia with no ST changes. Ventricular rate 114 bpm, ND interval 161, QRS duration 101, QT/QTc 327/394) Medical Decision Making - Medical Decision Making Was pt. sent in by a medical professional or institution (, PA, LABORATORY TECHNOLOGY TEACHER, urgent care, hospital, or long-term...) When possible be specific @ -No Did you speak to anyone other than the patient for history (EMS, parent, family, police, friend...)? What history was obtained from this source @ -No Did you review nursing and triage notes (agree or disagree)? Why? @ -I reviewed and agree with nursing and triage notes Were old charts reviewed (outside hosp., previous admission, EMS record, old EKG, old radiological studies, urgent care reports/EKG's, long-term records)? Report findings @ -No old charts were reviewed Differential Diagnosis (chest pain, altered mental status, abdominal pain women, abdominal pain men, vaginal bleeding, weakness, fever, dyspnea, syncope, headache, dizziness, GI bleed, back pain, seizure, CVA, palpatations, mental health, musculoskeletal)? @ -Differential Palpitations Ventricular arrhythmias, atrial arrhythmias, myocardial infarction, anemia, thyrotoxicosis, electrolyte imbalance, hypokalemia, pulmonary embolism, pulmonary disease, drugs, alcohol, anxiety, stress.... This is not meant to be an all-inclusive list. EKG interpreted by me (3pts min.). @ -As above X-rays interpreted by me (1pt min.). @ -Chest x-ray revealed patchy bilateral lower lung opacities favor scarring CT interpreted by me (1pt min.). @ -CT a chest reveals suboptimal study without central acute PE, cannot entirely exclude smaller peripheral pulmonary emboli, suboptimal study with right middle lobe acute infiltrate/edema U/S interpreted by me (1pt. min.). @ -None done What testing was considered but not performed or refused? (CT, X-rays, U/S, labs)? Why? @ -None What meds were considered but not given or refused? Why? @ -None Did you discuss the management of the patient with other professionals (professionals i.e. , PA, LABORATORY TECHNOLOGY TEACHER, lab, RT, psych nurse, home health care social worker, paper reeler, teacher, court registry officer, skilled nursing case manager)? Give summary @ -No Was smoking cessation discussed for >3mins.? @ -No Was critical care preformed (if so, how long)? @ -No Were there social determinants of health that impacted care today? How? (Homelessness, low income, unemployed, alcoholism, drug addiction, tra nsportation, low edu. Level, literacy, decrease access to med. care, prison, rehab)? @ -No Was there de-escalation of care discussed even if they declined (Discuss DNR or withdrawal of care, Hospice)? DNR status @ -No What co-morbidities impacted this encounter? (DM, HTN, Smoking, COPD, CAD, Cancer, CVA, ARF, Chemo, Hep., AIDS, mental health diagnosis, sleep apnea, morbid obesity)? @ -None Was patient admitted / discharged? Hospital course, mention meds given and route, prescriptions, significant lab abnormalities, going to OR and other pertinent info. @ -Patient was admitted. This is a 44-year-old female presenting with palpitations x 1 week with shortness of breath. Vital signs are remarkable for tachycardia at 122 bpm, O2 satting 91% on room air. No acute distress. Patient is afebrile. Lab work including CBC, CMP, coags, troponin, D-dimer significant for mildly elevated D-dimer. CTA chest that obtained which revealed suboptimal study without central acute PE, cannot entirely exclude small peripheral pulmonary emboli, suboptimal study with right middle lobe acute infiltration/e rudy. These findings were discussed with patient. Patient was then admitted and started on heparin and antibiotics to cover for both pneumonia and pulmonary embolism. Symptoms due to PE versus infiltrate at this time. Case was discussed with my ED attending Dr. Sandoval. Patient agreeable to plan. Undiagnosed new problem with uncertain prognosis? @ -No Drug Therapy requiring intensive monitoring for toxicity (Heparin, Nitro, Insulin, Cardizem)? @ -Yes, heparin Were any procedures done? @ -No Diagnosis/symptom? @ -Shortness of breath Acute, or Chronic, or Acute on Chronic? @ -Acute Uncomplicated (without systemic symptoms) or Complicated (systemic symptoms)? @ -Complicated Side effects of treatment? @ -No Exacerbation, Progression, or Severe Exacerbation? @ -No Poses a threat to life or bodily function? How? (Chest pain, USA, SD, pneumonia, PE, COPD, DKA, ARF, appy, cholecystitis, CVA, Diverticulitis, Homicidal, Suicidal, threat to staff... and all critical care pts) @ -Yes - Lab Data Result diagrams: 06/20/24 22:34 06/20/24 22:34 Lab Results 06/20/24 06/20/24 06/20/24 Range/Units 22:34 22:34 22:34 WBC 10.1 (3.8-10.6) k/uL RBC 4.76 (3.80-5.40) m/uL Hgb 14.4 (11.4-16.0) gm/dL Hct 42.8 (34.0-46.0) % MCV 89.9 (80.0-100.0) fL MCH 30.2 (25.0-35.0) pg MCHC 33.6 (31.0-37.0) g/dL RDW 13.0 (11.5-15.5) % Plt Count 578 H (150-450) k/uL MPV 7.2 Neutrophils % 71 % Lymphocytes % 20 % Monocytes % 6 % Eosinophils % 0 % Basophils % 0 % Neutrophils # 7.2 (1.3-7.7) k/uL Lymphocytes # 2.0 (1.0-4.8) k/uL Monocytes # 0.6 (0-1.0) k/uL Eosinophils # 0.0 (0-0.7) k/uL Basophils # 0.0 (0-0.2) k/uL PT 10.8 (10.0-12.5) sec INR 1.0 (<1.2) APTT 28.4 (22.0-30.0) sec D-Dimer 0.73 H (<0.60) mg/L FEU Sodium 136 L (137-145) mmol/L Potassium 4.0 (3.5-5.1) mmol/L Chloride 101 (98-107) mmol/L Carbon Dioxide 26 (22-30) mmol/L Anion Gap 9 mmol/L BUN 11 (7-17) mg/dL Creatinine 0.55 (0.52-1.04) mg/dL Est GFR (CKD-EPI)AfAm >90 (>60 ml/min/1.73 sqM) Est GFR (CKD-EPI)NonAf >90 (>60 ml/min/1.73 sqM) Glucose 127 H (74-99) mg/dL Calcium 9.9 (8.4-10.2) mg/dL Total Bilirubin 0.6 (0.2-1.3) mg/dL AST 31 (14-36) U/L ALT 23 (4-34) U/L Alkaline Phosphatase 78 (38-126) U/L Troponin I (0.000-0.034) ng/mL Total Protein 7.7 (6.3-8.2) g/dL Albumin 4.5 (3.5-5.0) g/dL Urine HCG, Qual (Not Detectd) 06/20/24 06/20/24 Range/Units 22:34 22:43 WBC (3.8-10.6) k/uL RBC (3.80-5.40) m/uL Hgb (11.4-16.0) gm/dL Hct (34.0-46.0) % MCV (80.0-100.0) fL MCH (25.0-35.0) pg MCHC (31.0-37.0) g/dL RDW (11.5-15.5) % Plt Count (150-450) k/uL MPV Neutrophils % % Lymphocytes % % Monocytes % % Eosinophils % % Basophils % % Neutrophils # (1.3-7.7) k/uL Lymphocytes # (1.0-4.8) k/uL Monocytes # (0-1.0) k/uL Eosinophils # (0-0.7) k/uL Basophils # (0-0.2) k/uL PT (10.0-12.5) sec INR (<1.2) APTT (22.0-30.0) sec D-Dimer (<0.60) mg/L FEU Sodium (137-145) mmol/L Potassium (3.5-5.1) mmol/L Chloride (98-107) mmol/L Carbon Dioxide (22-30) mmol/L Anion Gap mmol/L BUN (7-17) mg/dL Creatinine (0.52-1.04) mg/dL Est GFR (CKD-EPI)AfAm (>60 ml/min/1.73 sqM) Est GFR (CKD-EPI)NonAf (>60 ml/min/1.73 sqM) Glucose (74-99) mg/dL Calcium (8.4-10.2) mg/dL Total Bilirubin (0.2-1.3) mg/dL AST (14-36) U/L ALT (4-34) U/L Alkaline Phosphatase (38-126) U/L Troponin I <0.012 (0.000-0.034) ng/mL Total Protein (6.3-8.2) g/dL Albumin (3.5-5.0) g/dL Urine HCG, Qual Not Detected (Not Detectd) Disposition Clinical Impression: Shortness of breath Disposition: ADMITTED IP TO THIS HOSP Referrals: Janell Arvizu MD [Primary Care Provider] - 1-2 days Time of Disposition: 03:07
[2024-06-20 23:00] LABS: Basophils % (A) 0 %; Eosinophils % (A) 0 %; HCT 42.8 % (34.0-46.0); HGB 14.4 gm/dL (11.4-16.0); Lymphocytes % (A) 20 %; MCH 30.2 pg (25.0-35.0); MCHC 33.6 g/dL (31.0-37.0); MCV 89.9 fL (80.0-100.0); Mean Platelet Volume 7.2; Monocytes # (A) 0.6 k/uL (0-1.0); Monocytes % (A) 6 %; Neutrophils # (A) 7.2 k/uL (1.3-7.7); Neutrophils % (A) 71 %; Platelet Count 578 k/uL (150-450); RBC 4.76 m/uL (3.80-5.40); WBC 10.1 k/uL (3.8-10.6)
--- NOTE | 2024-06-20 23:00 | XR ---
EXAMINATION TYPE: XR chest 2V DATE OF EXAM: 06/20/2024 COMPARISON: Chest CT March 17, 2020 HISTORY: Shortness of breath TECHNIQUE: Frontal and lateral views of the chest are obtained. FINDINGS: There is patchy increased bilateral lower lung opacity. The cardiac silhouette size remai ns within normal limits. The osseous structures are intact. IMPRESSION: Patchy bilateral lower lung opacity favors scarring. [facility], , 06/20/2024 10:57 PM
[2024-06-20 23:15] LABS: Prothrombin Time 10.8 sec (10.0-12.5)
[2024-06-20 23:16] LABS: Partial Thromboplastin Time 28.4 sec (22.0-30.0)
[2024-06-20 23:31] LABS: ALT 23 U/L (4-34); AST 31 U/L (14-36); African American GFR (CKD) >90 (>60 ml/min/1.73 sqM); Albumin 4.5 g/dL (3.5-5.0); Alkaline Phosphatase 78 U/L (38-126); Anion Gap 9 mmol/L; Blood Urea Nitrogen 11 mg/dL (7-17); Calcium 9.9 mg/dL (8.4-10.2); Carbon Dioxide 26 mmol/L (22-30); Chloride 101 mmol/L (98-107); Glucose 127 mg/dL (74-99); Non-African American GFR(CKD) >90 (>60 ml/min/1.73 sqM); Sodium 136 mmol/L (137-145); Total Bilirubin 0.6 mg/dL (0.2-1.3); Total Protein 7.7 g/dL (6.3-8.2)
--- NOTE | 2024-06-21 00:53 | CT ---
EXAMINATION TYPE: CT chest angio for PE DATE OF EXAM: 06/21/2024 COMPARISON: Prior CT 2019 HISTORY: Pt recently dx with Bronchitis and states that over the past few days she has not felt good and has noticed she has had a increased heart rate. elevated d-dimer CT DLP: 629.3 mGycm. Automated Exposure Control for Dose Reduction was Utilized. CONTRAST: CTA scan of the thorax is performed with IV Contrast, patient injected with 100 mL of Isovue 370, pul monary embolism protocol. MIP Images are created on CT scanner and reviewed. FINDINGS: LUNGS: Suboptimal with motion artifact. This limits evaluation particularly for subcentimeter nodules . There is 4 to 5 mm right upper lobe pulmonary nodule axial image 52 noted. No pleural effusion or p neumothorax. Mild bronchiectasis and groundglass opacity in the right middle lobe. [id number] l inear scarring and/or atelectasis in the lingula. MEDIASTINUM: Suboptimal study with most dense contrast in SVC. Heterogeneity in the pulmonary arterie s. No central acute pulmonary embolism. Suboptimal evaluation of peripheral vessels. Enhancement of t he aorta without aneurysm or dissection. No cardiomegaly or pericardial effusion. OTHER: No additional significant abnormality is seen. IMPRESSION: 1. Suboptimal study without central acute pulmonary embolism. Cannot entirely exclude smaller periphe ral pulmonary emboli on this exam. 2. Suboptimal study with right middle lobe acute infiltrate and/or edema. [facility], , 06/21/2024 12:51 AM
[2024-06-21] MEDS ORDERED: HYDROmorphone 0.5 MG/0.5 ML SYRINGE IVP PRN (03:01)
[2024-06-21] MEDS ORDERED: MORPHINE SULFATE 4 MG/ML SYRINGE IV PRN (03:01)
[2024-06-21] MEDS ORDERED: NALOXONE 0.4 MG/ML 1 ML VIAL IV PRN (03:01)
[2024-06-21] MEDS: METOCLOPRAMIDE 5 MG/ML 2 ML VIAL IVP STA (03:49)
[2024-06-21] MEDS: LEVOFLOXACIN 750MG-D5W PMX 750 MG in DEXTROSE/WATER 1 150ML.BAG IVPB STA (03:51)
[2024-06-21] MEDS: HEPARIN SOD,PORK IN 0.45% NACL 25,000 UNIT in 0.45% NACL 1 250ML.BAG IV SCH (03:55)
[2024-06-21] MEDS: ACETAMINOPHEN TAB 325 MG TAB PO PRN (06:54)
[2024-06-21 11:38] LABS: C Reactive Protein 20.6 mg/dL (<1.0)
--- NOTE | 2024-06-21 12:11 | US ---
EXAMINATION TYPE: US venous doppler duplex LE BI DATE OF EXAM: 06/21/2024 11:27 AM COMPARISON: NONE CLINICAL INDICATION: Female, 44 years old with history of Swelling of lower extremity; On blood thinn ers SIDE PERFORMED: Bilateral TECHNIQUE: The lower extremity deep venous system is examined utilizing real time linear array sonog shazia with graded compression, doppler sonography and color-flow sonography. VESSELS IMAGED: Common Femoral Vein Deep Femoral Vein Greater Saphenous Vein * Femoral Vein Popliteal Vein Small Saphenous Vein * Proximal Calf Veins (* superficial vessels) Right Leg: Appears negative for DVT Left Leg: Appears negative for DVT IMPRESSION: Grayscale, color doppler, spectral doppler imaging performed of the deep veins of the lo wer extremities. There is normal flow, compressibility, vascular waveforms. [facility], , 06/21/2024 12:08 PM
--- NOTE | 2024-06-21 13:45 | P.HPIM ---
History of Present Illness H&P Date: 06/21/24 History of present illness; patient is a 44-year-old lady with past medical history significant for hyperlipidemia, thrombocytosis asthma, GERD presented the ER because of palpitations and shortness of breath for 1 week. Patient stated that she has not been feeling well over the last 1 week. Patient has been having shortness of breath and increased chest congestion. Patient stated that a lot of her coworkers were sick with similar symptoms so she thought it was most likely viral. For the last 2 days patient is noticing that her heart rate has been elevated, she was complaining of palpitations. Patient was also complaining of increasing shortness of breath. Denied any chest pain. Denies any fever or chills. There is no complaint of cough. Because of this feeling of increasing shortness of breath and palpitation, patient went to the ER Initial lab work done in the ER showed WBC 10.1, hemoglobin 14.4, platelet count 578, D-dimer 0.73, sodium 130, potassium 4, BUN 11, creatinine 0.55, troponin 0.012 EKG done in the ER showed heart rate of 114, no ST segment elevation or depression seen, no T-wave inversions seen. Chest x-ray done in the ER showed patchy bilateral lower lung opacity favor scarring CTA chest done showed suboptimal study without central acute pulmonary embolism, cannot entirely exclude smaller peripheral pulmonary emboli on this exam, mccall boptimal study with a right middle lobe acute infiltrate or edema Because of high suspicion of PE, patient started on pharmacy to dose heparin Patient admitted to internal medicine service REVIEW OF SYSTEMS: CONSTITUTIONAL: No fever, no malaise, no fatigue. HEENT: No recent visual problems or hearing problems. Denied any sore throat. CARDIOVASCULAR: As mentioned above PULMONARY: As mentioned above GASTROINTESTINAL: No diarrhea, no nausea, no vomiting, no abdominal pain. NEUROLOGICAL: No headaches, no weakness, no numbness. HEMATOLOGICAL: Denies any bleeding or petechiae. GENITOURINARY: Denies any burning micturition, frequency, or urgency. MUSCULOSKELETAL/RHEUMATOLOGICAL: Denies any joint pain, swelling, or any muscle pain. ENDOCRINE: Denies any polyuria or polydipsia. The rest of the 14-point review of systems is negative. PHYSICAL EXAMINATION: GENERAL: The patient is alert and oriented x3, not in any acute distress. Ill looking HEENT: Pupils are round and equally reacting to light. EOMI. No scleral icterus. No conjunctival pallor. Normocephalic, atraumatic. No pharyngeal erythema. No thyromegaly. CARDIOVASCULAR: S1 and S2 present. No murmurs, rubs, or gallops. Tachycardic PULMONARY: Tachypneic, diminished breath sound the bases bilaterally, no wheezing or crackles. ABDOMEN: Soft, nontender, nondistended, normoactive bowel sounds. No palpable organomegaly. MUSCULOSKELETAL: No joint swelling or deformity. EXTREMITIES: No cyanosis, clubbing, or pedal edema. NEUROLOGICAL: Gross neurological examination did not reveal any focal deficits. SKIN: No rashes. Assessment and plan Shortness of breath Palpitation Bacterial pneumonia Possible PE Monitor vital signs Monitor CBC Monitor CMP Continue telemetry monitoring Trend troponin Ordered proBNP Ordered 2D echo Ordered ultrasound of lower extremities Patient was started on pharmacy dose heparin for high suspicion of PE, will continue patient on heparin for now Ordered CRP, ESR, Pro-Neel Start Levaquin Ordered breathing treatment Consult pulmonary Consult vascular surgery Labs and medication were reviewed.. Continue same treatment. Continue with symptomatic treatment. Resume home medication. Monitor labs and vitals. DVT and GI prophylaxis. Further recommendations as per clinical course of the patient Dictation was produced using Slicethepie dictation software. please excuse any grammatical, word or spelling errors. Past Medical History Past Medical History: Asthma, GERD/Reflux, Hyperlipidemia, Musculoskeletal Disorder Additional Past Medical History / Comment(s): Back Pain Radiating Down CHANDLER LEGS, SMITH LT Leg. hx. uterine fibroids. worsening acid reflux x2 months. History of Any Multi-Drug Resistant Organisms: None Reported Past Surgical History: No Surgical Hx Reported Additional Past Surgical History / Comment(s): EXC [place] Teeth. PAIN PROC. EGD. uterine artery embolization. Past Anesthesia/Blood Transfusion Reactions: Family History of Problems w/ Anesthesia, Motion Sickness Additional Past Anesthesia/Blood Transfusion Reaction / Comment(s): Grandma has had hard time coming out of Anesthesia X1 W/ CAT SCAN W/ SEDATION. Past Psychological History: No Psychological Hx Reported Smoking Status: Never smoker Past Alcohol Use History: None Reported Past Drug Use History: None Reported - Past Family History Mother Family Medical History: No Reported History Medications and Allergies Home Medications Medication Instructions Recorded Confirmed Type Acetaminophen-Codeine 300-30mg 2 tab PO HS 10/02/16 06/21/24 History [Tylenol #3] Amitriptyline HCl [Elavil] 25 mg PO HS 10/02/16 06/21/24 History Montelukast [Singulair] 10 mg PO HS 10/02/16 06/21/24 History Omeprazole [PriLOSEC] 20 mg PO BID 10/02/16 06/21/24 History Vitamin C/Biotin [Hair, Skin and 1 tab PO DAILY 10/03/16 06/21/24 History Nails] Fexofenadine HCl [Stephanie Allergy] 180 mg PO DAILY 02/09/17 06/21/24 History Fluticasone Nasal [place] [Flonase 1 spray EA NOSTRIL DAILY 02/09/17 06/21/24 His tory Nasal [place]] Atorvastatin [Lipitor] 20 mg PO HS 02/29/24 06/21/24 History Multivitamins, Thera [Multivitamin 1 tab PO DAILY 02/29/24 06/21/24 History (formulary)] traZODone HCL [Desyrel] 50 mg PO HS PRN 02/29/24 06/21/24 History Hydroxyurea [Hydrea] 500 mg PO DAILY 06/21/24 06/21/24 History methocarbamoL [Robaxin-750] 750 mg PO HS 06/21/24 06/21/24 History Allergies Allergy/AdvReac Type Severity Reaction Status Date / Time Sulfa (Sulfonamide Allergy Severe Anaphylaxis Verified 06/21/24 08:48 Antibiotics) amoxicillin Allergy Anaphylaxis Verified 06/21/24 08:48 Penicillins Allergy Anaphylaxis Verified 06/21/24 08:48 Physical Exam Vitals: Vital Signs Temp Pulse Resp BP Pulse Ox 06/21/24 08:00 109 H 16 131/85 92 L 06/21/24 06:29 98.4 F 120 H 19 146/88 92 L 06/21/24 03:00 120 H 20 152/90 90 L 06/21/24 00:02 116 H 20 158/90 91 L 06/20/24 21:59 98.4 F 122 H 20 139/90 91 L Intake and Output 06/20/24 06/21/24 06/21/24 22:59 06:59 14:59 Other: Weight 108.862 kg Results CBC & Chem 7: 06/20/24 22:34 06/20/24 22:34 Labs: Abnormal Lab Results - Last 24 Hours (Table) 06/20/24 06/20/24 06/20/24 Range/Units 22:34 22:34 22:34 Plt Count 578 H (150-450) k/uL APTT (22.0-30.0) sec D-Dimer 0.73 H (<0.60) mg/L FEU Sodium 136 L (137-145) mmol/L Glucose 127 H (74-99) mg/dL 06/21/24 Range/Units 09:40 Plt Count (150-450) k/uL APTT 48.4 H (22.0-30.0) sec D-Dimer (<0.60) mg/L FEU Sodium (137-145) mmol/L Glucose (74-99) mg/dL
--- NOTE | 2024-06-21 15:25 | P.GSCN ---
History of Present Illness Consult date: 06/21/24 History of present illness: Patient is a 44-year-old female who presented to the ER with some palpitations and shortness of breath feeling that her chest feels not normal, that she is having to work harder to breathe. She states he has not been feeling well over the past week. She has had coworkers with similar symptoms and initially thought that it was just an upper respiratory virus, over the past few days she has been having feelings of her heart with an elevated rate and worsening shortness of breath. For this here in the ER a CT angiogram was performed wit hout any central acute pulmonary embolism, the commentary from the radiologist is that they cannot entirely exclude small peripheral pulmonary emboli on this exam. Due to her complaints, she was started on heparin in the ER as well as antibiotic. She denies any history of blood clots that she is aware of. She denies any provoking type symptoms or risk factors thereof. Past Medical History Past Medical History: Asthma, GERD/Reflux, Hyperlipidemia, Musculoskeletal Disorder Additional Past Medical History / Comment(s): Back Pain Radiating Down CHANDLER LEGS, SMITH LT Leg. hx. uterine fibroids. worsening acid reflux x2 months. History of Any Multi-Drug Resistant Organisms: None Reported Past Surgical History: No Surgical Hx Reported Additional Past Surgical History / Comment(s): EXC [place] Teeth. PAIN PROC. EGD. uterine artery embolization. Past Anesthesia/Blood Transfusion Reactions: Family History of Problems w/ Anesthesia, Motion Sickness Additional Past Anesthesia/Blood Transfusion Reaction / Comm: Grandma has had hard time coming out of Anesthesia X1 W/ CAT SCAN W/ SEDATION. Past Psychological History: No Psychological Hx Reported Smoking Status: Never smoker Past Alcohol Use History: None Reported Past Drug Use History: None Reported - Past Family History Mother Family Medical History: No Reported History Medications and Allergies Home Medications Medication Instructions Recorded Confirmed Type Acetaminophen-Codeine 300-30mg 2 tab PO HS 10/02/16 06/21/24 History [Tylenol #3] Amitriptyline HCl [Elavil] 25 mg PO HS 10/02/16 06/21/24 History Montelukast [Singulair] 10 mg PO HS 10/02/16 06/21/24 History Omeprazole [PriLOSEC] 20 mg PO BID 10/02/16 06/21/24 History Vitamin C/Biotin [Hair, Skin and 1 tab PO DAILY 10/03/16 06/21/24 History Nails] Fexofenadine HCl [Stephanie Allergy] 180 mg PO DAILY 02/09/17 06/21/24 History Fluticasone Nasal [place] [Flonase 1 spray EA NOSTRIL DAILY 02/09/17 06/21/24 History Nasal [place]] Atorvastatin [Lipitor] 20 mg PO HS 02/29/24 06/21/24 History Multivitamins, Thera [Multivitamin 1 tab PO DAILY 02/29/24 06/21/24 History (formulary)] traZODone HCL [Desyrel] 50 mg PO HS PRN 02/29/24 06/21/24 History Hydroxyurea [Hydrea] 500 mg PO DAILY 06/21/24 06/21/24 History methocarbamoL [Robaxin-750] 750 mg PO HS 06/21/24 06/21/24 History Allergies Allergy/AdvReac Type Severity Reaction Status Date / Time Sulfa (Sulfonamide Allergy Severe Anaphylaxis Verified 06/21/24 08:48 Antibiotics) amoxicillin Allergy Anaphylaxis Verified 06/21/24 08:48 Penicillins Allergy Anaphylaxis Verified 06/21/24 08:48 Surgical - Exam Vital Signs Temp Pulse Resp BP Pulse Ox 98.4 F 122 H 20 139/90 91 L 06/20/24 21:59 06/20/24 21:59 06/20/24 21:59 06/20/24 21:59 06/20/24 21:59 GENERAL: The patient is alert and oriented x3, not in any acute distress, although sleepy and mildly uncomfortable, nontoxic appearing HEENT:No scleral icterus. . Normocephalic, atraumatic. No pharyngeal erythema. No thyromegaly. CARDIOVASCULAR: Tachycardic ABDOMEN: Soft, nontender, nondistended MUSCULOSKELETAL: No joint swelling or deformity. EXTREMITIES: No cyanosis, clubbing, or pedal edema NEUROLOGICAL: Gross neurological examination did not reveal any focal deficits. SKIN: No rashes. Results I personally reviewed the CT angiogram. There is no obvious pulmonary embolism, in fact doubt any further evidence of pulmonary embolism even in the subsegmental branches based on imaging. No DVT noted on ultrasound. - Labs 06/20/24 22:34 06/20/24 22:34 Abnormal Lab Results - Last 24 Hours (Table) 06/20/24 06/20/24 06/20/24 Range/Units 22:34 22:34 22:34 Plt Count 578 H (150-450) k/uL APTT (22.0-30.0) sec D-Dimer 0.73 H (<0.60) mg/L FEU Sodium 136 L (137-145) mmol/L Glucose 127 H (74-99) mg/dL C-Reactive Protein (<1.0) mg/dL 06/21/24 06/21/24 Range/Units 09:40 10:30 Plt Count (150-450) k/uL APTT 48.4 H (22.0-30.0) sec D-Dimer (<0.60) mg/L FEU Sodium (137-145) mmol/L Glucose (74-99) mg/dL C-Reactive Protein 20.6 H (<1.0) mg/dL Diabetes panel 06/20/24 Range/Units 22:34 Sodium 136 L (137-145) mmol/L Potassium 4.0 (3.5-5.1) mmol/L Chloride 101 (98-107) mmol/L Carbon Dioxide 26 (22-30) mmol/L BUN 11 (7-17) mg/dL Creatinine 0.55 (0.52-1.04) mg/dL Glucose 127 H (74-99) mg/dL Calcium 9.9 (8.4-10.2) mg/dL AST 31 (14-36) U/L ALT 23 (4-34) U/L Alkaline Phosphatase 78 (38-126) U/L Total Protein 7.7 (6.3-8.2) g/dL Albumin 4.5 (3.5-5.0) g/dL Calcium panel 06/20/24 Range/Units 22:34 Calcium 9.9 (8.4-10.2) mg/dL Albumin 4.5 (3.5-5.0) g/dL Pituitary panel 06/20/24 Range/Units 22:34 Sodium 136 L (137-145) mmol/L Potassium 4.0 (3.5-5.1) mmol/L Chloride 101 (98-107) mmol/L Carbon Dioxide 26 (22-30) mmol/L BUN 11 (7-17) mg/dL Creatinine 0.55 (0.52-1.04) mg/dL Glucose 127 H (74-99) mg/dL Calcium 9.9 (8.4-10.2) mg/dL Adrenal panel 06/20/24 Range/Units 22:34 Sodium 136 L (137-145) mmol/L Potassium 4.0 (3.5-5.1) mmol/L Chloride 101 (98-107) mmol/L Carbon Dioxide 26 (22-30) mmol/L BUN 11 (7-17) mg/dL Creatinine 0.55 (0.52-1.04) mg/dL Glucose 127 H (74-99) mg/dL Calcium 9.9 (8.4-10.2) mg/dL Total Bilirubin 0.6 (0.2-1.3) mg/dL AST 31 (14-36) U/L ALT 23 (4-34) U/L Alkaline Phosphatase 78 (38-126) U/L Total Protein 7.7 (6.3-8.2) g/dL Albumin 4.5 (3.5-5.0) g/dL Assessment and Plan Assessment: Shortness of breath, palpitations Plan: I personally reviewed the images, at this time I do not believe the patient has any significant pulmonary emboli that would require anticoagulation. She has no risk factors nor any DVT. I do not believe heparinization is necessary at this time. Long discussion was had with the patient and her mother who is at the bedside in regards to this. She will still get prophylactic doses of anticoagulation however does not need to be fully anticoagulated at this time. They seemingly understand and are willing to proceed.
[2024-06-21] MEDS: ONDANSETRON 4 MG/2 ML VIAL IVP PRN (17:39)
[2024-06-21] MEDS: AMITRIPTYLINE HCL 25 MG TAB PO SCH (20:14)
[2024-06-21] MEDS: ATORVASTATIN 20 MG TAB PO SCH (20:14)
[2024-06-21] MEDS: methocarbamoL 750 MG TAB PO SCH (20:14)
[2024-06-21] MEDS: MONTELUKAST 10 MG TAB PO SCH (20:14)
[2024-06-21] MEDS: Acetaminophen-Codeine 300-30mg TAB PO SCH (20:14)
[2024-06-21] MEDS: PANTOPRAZOLE 40 MG TABLET PO SCH (20:14)
[2024-06-22] MEDS: traZODone HCL 50 MG TAB PO PRN (03:51)
[2024-06-22] MEDS: LEVOFLOXACIN 750MG-D5W PMX 750 MG in DEXTROSE/WATER 1 150ML.BAG IVPB SCH (06:28)
[2024-06-22] MEDS ORDERED: NON FORMULARY DRUG (Vitamin C/Biotin [Hair, Skin And Nails Chew] 1 EACH Tab.Chew) PO SCH (09:00)
[2024-06-22] MEDS: MULTIVITAMINS, THERA 1 EACH TAB PO SCH (09:04)
[2024-06-22] MEDS: FLUTICASONE NASAL 50MCG/SPRAY 16GM BTL EA NOSTRIL SCH (09:04)
[2024-06-22] MEDS: IPRATROPIUM-ALBUTEROL 3 ML NEB INHALATION PRN (09:10)
--- NOTE | 2024-06-22 11:03 | P.CNPUL ---
History of Present Illness Consult date: 06/22/24 Requesting physician: Bill Lerma Reason for consult: dyspnea, cough, asthma Chief complaint: Shortness of breath and cough. History of present illness: Pulmonary consult dated June 22, 2024. 44-year-old female with a history of asthma, states, for the last week or so, she has not been feeling well. Actually, it may be actually 2 weeks. She apparently thought she had bronchitis. She was complaining of shortness of breath, cough, and congestion. She was coughing up a small amount of phlegm. No fever or chills. She does have a history of asthma, uses Singulair, rescue inhaler, and generic Advair, when she remembers to. She is a non-smoker. She does not vape. Current labs include a white count 10.1, hemoglobin 14.4, macro 42.8, platelet count 578,000. Sedimentation rate 69. D-dimer 0.73. Sodium 136, potassium 4, chlorides 101, CO2 26, BUN 11, creatinine 0.55. Troponins were negative x 3 C-reactive protein is 20.6. N-terminal proBNP was normal. Procalcitonin level was normal. Chest x-ray showed some scarring. Lower extremity Dopplers were negative. CT angiogram showed some atelectasis or infiltrate possibly in the right middle lobe. The patient is only as bit better since being here in the hospital. Review of Systems REVIEW OF SYSTEMS: CONSTITUTIONAL: [Negative.] NEUROLOGIC: [ Negative.] HEENT: [ Negative.] CARDIAC: [Negative.] PULMONARY: Shortness of breath, cough, chest congestion, and minimal phlegm production. GI: [Negative.] : [Negative.] RHEUMATOLOGIC: [ Negative.] IMMUNOLOGIC: [ Negative.] ENDOCRINE: [Negative. ] DERMATOLOGIC: [Negative.] Past Medical History Past Medical History: Asthma, GERD/Reflux, Hyperlipidemia, Musculoskeletal Disorder Additional Past Medical History / Comment(s): Back Pain Radiating Down CHANDLER LEGS, SMITH LT Leg. hx. uterine fibroids. worsening acid reflux x2 months. high platelet count-genetic mutation. History of Any Multi-Drug Resistant Organisms: None Reported Past Surgical History: No Surgical Hx Reported Additional Past Surgical History / Comment(s): EXC [place] Teeth. PAIN PROC. EGD. uterine artery embolization. Past Anesthesia/Blood Transfusion Reactions: Family History of Problems w/ Anesthesia, Motion Sickness Additional Past Anesthesia/Blood Transfusion Reaction / Comment(s): Grandma has had hard time coming out of Anesthesia X1 W/ CAT SCAN W/ SEDATION. Smoking Status: Never smoker - Past Family History Mother Family Medical History: No Reported History Medications and Allergies Home Medications Medication Instructions Recorded Confirmed Type Acetaminophen-Codeine 300-30mg 2 tab PO HS 10/02/16 06/21/24 History [Tylenol #3] Amitriptyline HCl [Elavil] 25 mg PO HS 10/02/16 06/21/24 History Montelukast [Singulair] 10 mg PO HS 10/02/16 06/21/24 History Omeprazole [PriLOSEC] 20 mg PO BID 10/02/16 06/21/24 History Vitamin C/Biotin [Hair, Skin and 1 tab PO DAILY 10/03/16 06/21/24 History Nails] Fexofenadine HCl [Stephanie Allergy] 180 mg PO DAILY 02/09/17 06/21/24 History Fluticasone Nasal [place] [Flonase 1 spray EA NOSTRIL DAILY 02/09/17 06/21/24 History Nasal [place]] Atorvastatin [Lipitor] 20 mg PO HS 02/29/24 06/21/24 History Multivitamins, Thera [Multivitamin 1 tab PO DAILY 02/29/24 06/21/24 History (formulary)] traZODone HCL [Desyrel] 50 mg PO HS PRN 02/29/24 06/21/24 History Hydroxyurea [Hydrea] 500 mg PO DAILY 06/21/24 06/21/24 History methocarbamoL [Robaxin-750] 750 mg PO HS 06/21/24 06/21/24 History Allergies Allergy/AdvReac Type Severity Reaction Status Date / Time Sulfa (Sulfonamide Allergy Severe Anaphylaxis Verified 06/21/24 08:48 Antibiotics) amoxicillin Allergy Anaphylaxis Verified 06/21/24 08:48 Penicillins Allergy Anaphylaxis Verified 06/21/24 08:48 Physical Exam Osteopathic Statement: *. No significant issues noted on an osteopathic structural exam other than those noted in the History and Physical/Consult. Vitals: Vital Signs Temp Pulse Pulse Resp BP BP BP 06/22/24 09:22 92 06/22/24 09:10 94 06/22/24 08:00 97.3 F L 95 16 128/78 06/22/24 04:00 97.4 F L 104 H 18 144/85 06/22/24 00:00 98.1 F 107 H 16 133/90 06/21/24 20:00 98.7 F 111 H 12 143/83 06/21/24 17:22 108 H 18 06/21/24 17:10 98.3 F 109 H 18 154/91 06/21/24 15:56 103 H 20 134/82 06/21/24 12:24 98.0 F 101 H 20 131/80 Pulse Ox 06/22/24 09:22 06/22/24 09:10 95 06/22/24 08:00 96 06/22/24 04:00 91 L 06/22/24 00:00 92 L 06/21/24 20:00 93 L 06/21/24 17:22 93 L 06/21/24 17:10 06/21/24 15:56 98 06/21/24 12:24 94 L Intake and Output 06/21/24 06/22/24 06/22/24 22:59 06:59 14:59 Intake Total 720 Output Total 100 Balance -100 720 Intake: Oral 720 Output: Urine 100 Other: Voiding Method Toilet Toilet Toilet No acute distress, oriented 3. Currently on 2 L. Saturation is 96 to 97%. No audible wheezing. No use of accessory muscles. HEENT examination is grossly unremarkable. Mucous membranes are moist. No oral lesions. Neck supple. Full range of motion. No adenopathy thyromegaly or neck vein distention. Cardiovascular examination reveals regular rhythm rate. S1-S2 normal. No S3 or S4. No discernible murmur noted. Lungs reveal diffuse inspiratory and expiratory wheezes and rhonchi. She is quite bronchospastic. No crackles. Breath sounds are equal bilaterally. Abdomen soft bowel sounds are heard. No masses or tenderness. Extremities are intact. No cyanosis clubbing or edema. Skin is without rash or lesion. Neurologic examination is brief but nonfocal. Results - Laboratory Findings CBC and BMP: 06/20/24 22:34 06/20/24 22:34 PT/INR, D-dimer PT 10.8 sec (10.0-12.5) 06/20/24 22:34 INR 1.0 (<1.2) 06/20/24 22:34 D-Dimer 0.73 mg/L FEU (<0.60) H 06/20/24 22:34 Abnormal lab findings: Abnormal Labs 06/20/24 06/20/24 06/20/24 22:34 22:34 22:34 Plt Count 578 H ESR APTT D-Dimer 0.73 H Sodium 136 L Glucose 127 H C-Reactive Protein 06/21/24 06/21/24 06/21/24 09:40 10:30 10:30 Plt Count ESR 69 H APTT 48.4 H D-Dimer Sodium Glucose C-Reactive Protein 20.6 H - Diagnostic Findings Chest x-ray: image reviewed CT scan - chest: image reviewed U/S of Legs: image reviewed Assessment and Plan Assessment: Probable viral induced asthma exacerbation with reactive bronchospasm and bronchial inflammation. History of longstanding asthma. History of gastroesophageal reflux disease. Hyperlipidemia. History of uterine fibroids. Lifelong non-smoker. Plan: Plan dated June 22, 2024. The patient's lower extremity Dopplers were negative. Chest x-ray shows some scarring, and CAT scan, was negative for pulmonary embolism, but possibly showed some infiltrate or atelectasis in the right middle lobe. Procalcitonin level was 0.06. The patient has not had any fever or chills. The patient is placed on updrafts, budesonide, formoterol, and Solu-Medrol. Antibiotics are di scontinued. We will continue to follow make recommendations along the way. I suspect viral induced asthma exacerbation, with bronchial inflammation and reactive bronchospasm. Time with Patient: Greater than 30
[2024-06-22 11:44] LABS: Basophils # (A) 0.1 k/uL (0-0.2); Basophils % (A) 1 %; Eosinophils # (A) 0.1 k/uL (0-0.7); Eosinophils % (A) 1 %; HCT 41.8 % (34.0-46.0); HGB 13.7 gm/dL (11.4-16.0); Lymphocytes # (A) 1.6 k/uL (1.0-4.8); Lymphocytes % (A) 16 %; MCH 29.7 pg (25.0-35.0); MCHC 32.9 g/dL (31.0-37.0); MCV 90.4 fL (80.0-100.0); Mean Platelet Volume 7.5; Monocytes # (A) 0.9 k/uL (0-1.0); Monocytes % (A) 9 %; Neutrophils # (A) 6.7 k/uL (1.3-7.7); Neutrophils % (A) 70 %; Platelet Count 595 k/uL (150-450); RBC 4.63 m/uL (3.80-5.40); RDW 13.6 % (11.5-15.5); WBC 9.6 k/uL (3.8-10.6)
--- NOTE | 2024-06-22 11:54 | CA ---
Transthoracic Echo Report Name: Laura Garcia Age: 44 Gender: F : 1980 Exam Date: 06/21/2024 11:54 Exam Location: [facility] Ht (in): 67 Wt (lb): 240 Ordering Physician: Manny Fitzpatrick MD Attending/Referring Phys: Loading Machine Operator Albina Damian RDCS Procedure CPT: Indications: palpitations Cardiac Hx: Technical Quality: Fair Contrast 1: Total Dose (mL): Contrast 2: Total Dose (mL): MEASUREMENTS (Male / Female) Normal Values 2D ECHO LV Diastolic Diameter PLAX 3.4 cm 4.2 - 5.9 / 3.9 - 5.3 cm LV Systolic Diameter PLAX 1.6 cm IVS Diastolic Thickness 1.2 cm 0.6 - 1.0 / 0.6 - 0.9 cm LVPW Diastolic Thickness 1.5 cm 0.6 - 1.0 / 0.6 - 0.9 cm LV Relative Wall Thickness 0.8 LA Volume 43.7 cm??? 18 - 58 / 22 - 52 cm??? LA Volume Index 18.9 cm???/m??? 16 - 28 cm???/m??? M-MODE Aortic Root Diameter MM 2.6 cm LA Systolic Diameter MM 3.2 cm LA Ao Ratio MM 1.2 AV Cusp Separation MM 1.9 cm DOPPLER AV Peak Velocity 112.9 cm/s AV Peak Gradient 5.1 mmHg AV Mean Velocity 91.1 cm/s AV Mean Gradient 3.5 mmHg AV Velocity Time Integral 19.1 cm LVOT Peak Velocity 98.3 cm/s LVOT Peak Gradient 3.9 mmHg LVOT Velocity Time Integral 19.1 cm MV Area PHT 4.5 cm??? Mitral E Point Velocity 93.2 cm/s Mitral A Point Velocity 82.4 cm/s Mitral E to A Ratio 1.1 MV Deceleration Time 167.6 ms MV E' Velocity 7.7 cm/s Mitral E to MV E' Ratio 12.1 FINDINGS Left Ventricle Moderately increased left ventricular wall thickness. Left ventricular cavity size normal. Normal left ventricular systolic function with no obvious regional wall motion abnormalities. Left ventricular ejection fraction is estimated at 55-60 %. Grade 1 diastolic dysfunction. Right Ventricle Normal right ventricular size and function. Right ventricular systolic pressure within normal limits. Right Atrium Normal right atrial size. Left Atrium Normal left atrial size. Mitral Valve Structurally normal mitral valve. No mitral stenosis, regurgitation or prolapse. Aortic Valve Trileaflet aortic valve. No aortic valve stenosis or regurgitation. Tricuspid Valve Structurally normal tricuspid valve. Mild tricuspid regurgitation. Pulmonic Valve Structurally normal pulmonic valve. Pericardium No pericardial effusion. Aorta Normal size aortic root and proximal ascending aorta. CONCLUSIONS Diagnosis: Shortness of breath, palpitations LVH with preserved systolic function Prominent posterior pericardial stripe Previewed by: Dr. Rito Wilson MD (Electronically Signed) Final Date: 22 June 2024 11:53
[2024-06-22 11:58] LABS: ALT 20 U/L (4-34); AST 29 U/L (14-36); African American GFR (CKD) >90 (>60 ml/min/1.73 sqM); Albumin 3.9 g/dL (3.5-5.0); Alkaline Phosphatase 61 U/L (38-126); Anion Gap 10 mmol/L; Blood Urea Nitrogen 10 mg/dL (7-17); Calcium 9.3 mg/dL (8.4-10.2); Carbon Dioxide 27 mmol/L (22-30); Chloride 98 mmol/L (98-107); Glucose 106 mg/dL (74-99); Non-African American GFR(CKD) >90 (>60 ml/min/1.73 sqM); Potassium 4.3 mmol/L (3.5-5.1); Sodium 135 mmol/L (137-145); Total Bilirubin 0.6 mg/dL (0.2-1.3); Total Protein 7.1 g/dL (6.3-8.2)
[2024-06-22] MEDS: methylPREDNISolone SOD SUCCI 125 MG/2 ML VIAL IV SCH (12:47)
--- NOTE | 2024-06-22 13:48 | P.PN ---
Subjective Progress Note Date: 06/22/24 patient is a 44-year-old lady with past medical history significant for hyperlipidemia, thrombocytosis asthma, GERD presented the ER because of palpitations and shortness of breath for 1 week. Patient stated that she has not been feeling well over the last 1 week. Patient has been having shortness of breath and increased chest congestion. Patient stated that a lot of her coworkers were sick with similar symptoms so she thought it was most likely viral. For the last 2 days patient is noticing that her heart rate has been elevated, she was complaining of palpitations. Patient was also complaining of increasing shortness of breath. Denied any chest pain. Denies any fever or chills. There is no complaint of cough. Because of this feeling of increasing shortness of breath and palpitation, patient went to the ER Initial lab work done in the ER showed WBC 10.1, hemoglobin 14.4, platelet count 578, D-dimer 0.73, sodium 130, potassium 4, BUN 11, creatinine 0.55, troponin 0.012 EKG done in the ER showed heart rate of 114, no ST segment elevation or depression seen, no T-wave inversions seen. Chest x-ray done in the ER showed patchy bilateral lower lung opacity favor scarring CTA chest done showed suboptimal study without central acute pulmonary embolism, cannot entirely exclude smaller peripheral pulmonary emboli on this exam, suboptimal study with a right middle lobe acute infiltrate or edema Because of high suspicion of PE, patient started on pharmacy to dose heparin Patient admitted to internal medicine service 06/22. Patient seen and examined. States she feels much better. Vascular surgery eval to the patient, reviewed CT scans and ultrasound of lower extremities, at this time there is no suspicion of any DVT or PE, hepariniwas discontinued. States breathing is improved REVIEW OF SYSTEMS: CONSTITUTIONAL: No fever, no malaise,. CARDIOVASCULAR: No chest pain, no palpitations, no syncope. PULMONARY: No shortness of breath, no cough, GASTROINTESTINAL: No diarrhea, no nausea, no vomiting, no abdominal pain. NEUROLOGICAL: No headaches, no weakness, PHYSICAL EXAMINATION: GENERAL: The patient is alert and oriented x3, not in any acute distress. Well developed, well nourished. HEENT: Pupils are round and equally reacting to light. EOMI. No scleral icterus. No conjunctival pallor. Normocephalic, atraumatic. No pharyngeal erythema. No thyromegaly. CARDIOVASCULAR: S1 and S2 present. No murmurs, rubs, or gallops. PULMONARY: Chest is clear to auscultation, no wheezing or crackles. ABDOMEN: Soft, nontender, nondistended, normoactive bowel sounds. No palpable organomegaly. MUSCULOSKELETAL: No joint swelling or deformity. EXTREMITIES: No cyanosis, clubbing, or pedal edema. NEUROLOGICAL: Gross neurological examination did not reveal any focal deficits. SKIN: No rashes. Assessment and plan Shortness of breath Acute hypoxic respiratory failure Viral induced asthma exacerbation Palpitation Bacterial pneumonia PE ruled out Monitor vital signs Monitor CBC Monitor CMP Continue telemetry monitoring Encourage use of incentive spirometer Continue oxygen supplementation aggressive bronchopulmonary hygiene Continue breathing treatments Continue IV Solu-Medrol Pulmonary following Labs and medication were reviewed.. Continue same treatment. Continue with symptomatic treatment. Resume home medication. Monitor labs and vitals. DVT and GI prophylaxis. Further recommendations as per clinical course of the patient Dictation was produced using [employer] dictation software. please excuse any grammatical, word or spelling errors. Objective - Vital Signs Vital signs: Vital Signs Temp 98.2 F 06/22/24 12:00 Pulse 85 06/22/24 13:02 Resp 20 06/22/24 12:00 BP 136/82 06/22/24 12:00 Pulse Ox 97 06/22/24 12:00 FiO2 Intake & Output 06/21/24 06/22/24 06/22/24 18:59 06:59 18:59 Intake Total 209.993 720 Output Total 100 Balance 209.993 620 Intake: Intake, IV Titration 209.993 Amount Heparin Sod,Pork in 0.45% 209.993 NaCl 25,000 unit In 0.45 % NaCl 1 250ml.bag @ 18 UNITS/KG/HR 19.595 mls/hr IV .[id number] DEDE Rx#: [id number] Oral 720 Output: Urine 100 Other: Voiding Method Toilet Toilet # Voids 1 - Labs CBC & Chem 7: 06/22/24 11:12 06/22/24 11:12 Labs: Abnormal Lab Results - Last 24 Hours (Table) 06/21/24 06/22/24 06/22/24 Range/Units 10:30 11:12 11:12 Plt Count 595 H (150-450) k/uL ESR 69 H (0-20) mm/Hr Sodium 135 L (137-145) mmol/L Creatinine 0.47 L (0.52-1.04) mg/dL Glucose 106 H (74-99) mg/dL
[2024-06-22] MEDS: BENZONATATE 100 MG CAP PO PRN (15:03)
[2024-06-22] MEDS: FORMOTEROL FUMARATE 20 MCG/2 ML NEBU INHALATION SCH (20:21)
[2024-06-22] MEDS: BUDESONIDE 1 MG/2 ML NEBU INHALATION SCH (20:21)
[2024-06-22 20:37] LABS: Glucose,Whole Blood 158 mg/dL (70-110)
[2024-06-23 06:21] LABS: Glucose,Whole Blood 134 mg/dL (70-110)
[2024-06-23] MEDS: INSULIN ASPART (NovoLOG) 100 UNIT/ML VIAL SQ SCH (06:32)
[2024-06-23 07:47] LABS: Basophils # (A) 0.1 k/uL (0-0.2); Basophils % (A) 1 %; Eosinophils # (A) 0.1 k/uL (0-0.7); Eosinophils % (A) 1 %; HCT 43.6 % (34.0-46.0); HGB 13.9 gm/dL (11.4-16.0); Lymphocytes # (A) 1.3 k/uL (1.0-4.8); Lymphocytes % (A) 10 %; MCH 28.9 pg (25.0-35.0); MCHC 31.8 g/dL (31.0-37.0); MCV 91.1 fL (80.0-100.0); Mean Platelet Volume 7.4; Monocytes # (A) 0.5 k/uL (0-1.0); Monocytes % (A) 4 %; Neutrophils # (A) 11.1 k/uL (1.3-7.7); Neutrophils % (A) 83 %; Platelet Count 783 k/uL (150-450); RBC 4.79 m/uL (3.80-5.40); RDW 13.2 % (11.5-15.5); WBC 13.4 k/uL (3.8-10.6)
[2024-06-23 08:06] LABS: ALT 23 U/L (4-34); AST 27 U/L (14-36); African American GFR (CKD) >90 (>60 ml/min/1.73 sqM); Albumin 4.4 g/dL (3.5-5.0); Alkaline Phosphatase 69 U/L (38-126); Anion Gap 11 mmol/L; Blood Urea Nitrogen 12 mg/dL (7-17); Calcium 10.2 mg/dL (8.4-10.2); Carbon Dioxide 27 mmol/L (22-30); Chloride 101 mmol/L (98-107); Glucose 152 mg/dL (74-99); Non-African American GFR(CKD) >90 (>60 ml/min/1.73 sqM); Potassium 4.3 mmol/L (3.5-5.1); Sodium 139 mmol/L (137-145); Total Bilirubin 0.5 mg/dL (0.2-1.3); Total Protein 8.1 g/dL (6.3-8.2)
--- NOTE | 2024-06-23 10:45 | CDI ---
Documentation Clarification Form Date: 06/23/2024 From: Farida Martinez RN CCDS Phone: [phone] Admit Date: 06/21/2024 03:07:00 AM Patient Name: Laura Garcia Visit Number: [id number] Discharge Date: ATTENTION: The Clinical Documentation Specialists (CDI) and [facility] Coding Staff appreciate your assistance in clarifying documentation. Please respond to the clarification below the line at the bottom and electronically sign. The CDI & [facility] Coding staff will review the response and follow-up if needed. Please note: Queries are made part of the Legal Health Record. If you have any questions, please contact the author of this message via ITS. Doctor/Provider: Manny Fitzpatrick MD: There is documentation of bacterial pneumonia in the H&P 06/21 and in subsequent IM progress notes. Additional clarification is requested. History/Risk Factors: 44-year-old female with a history of thrombocytosis, HLD and asthma who presents with SOB and increased chest congestion Clinical Indicators: 06/20 Triage VS: 139/90, 98.4, 122, 20, 91% room air 06/21@0300 2liters nasal cannula initiated for SaO2 90%, subsequent O2 sats 92%- 98% on 2liters nasal cannula 06/20-06/23 Temperature max: 98.5 on 06/22 06/21 H&P, Assessment and Plan: "Bacterial pneumonia" 06/22 Pulmonary consult, Assessment and Plan: "Probable viral induced asthma exacerbation with reactive bronchospasm and bronchial inflammation." 06/22 IM PN, Assessment and Plan: "Shortness of breath, Acute hypoxic respiratory failure, Viral induced asthma exacerbation, Palpitation, Bacterial pneumonia, PE ruled out" 06/20-06/23 WBC: 10.1, 9.6, 13.4 06/20 D-Dimer: 0.73 06/21 C-Reactive Protein: 20.6 Procalcitonin: 0.06 06/20 Chest X Ray, Impression: "Patchy bilateral lower lung opacity favors scarring." 06/21 CTA Chest, Impression: "1.Suboptimal study without central acute pulmonary embolism. Cannot entirely exclude smaller peripheral pulmonary emboli on this exam. 2.Suboptimal study with right middle lobe acute infiltrate and/or edema." Treatment: Levaquin 750mg IV once 06/21 the Q24 hours once 06/22 then dc'd Perforomist 20mcg inhalation BID start 06/22 Pulmicort Inhalation 1mg/2ml BID start 06/22 Duoneb 0.5mg/3ml inhalation QID PRN ordered 06/21, one dose given 06/23 Can you please clarify bacterial pneumonia? [ ] Bacterial pneumonia POA [ ] Bacterial pneumonia is ruled out [ ] Other, please specify [ ] Unable to determine Answered in IM note 06/23- bacterial pna ruled out MTDD
[2024-06-23 11:34] LABS: Glucose,Whole Blood 196 mg/dL (70-110)
--- NOTE | 2024-06-23 12:12 | P.PN ---
Subjective Progress Note Date: 06/23/24 patient is a 44-year-old lady with past medical history significant for hyperlipidemia, thrombocytosis asthma, GERD presented the ER because of palpitations and shortness of breath for 1 week. Patient stated that she has not been feeling well over the last 1 week. Patient has been having shortness of breath and increased chest congestion. Patient stated that a lot of her coworkers were sick with similar symptoms so she thought it was most likely viral. For the last 2 days patient is noticing that her heart rate has been elevated, she was complaining of palpitations. Patient was also complaining of increasing shortness of breath. Denied any chest pain. Denies any fever or chills. There is no complaint of cough. Because of this feeling of increasing shortness of breath and palpitation, patient went to the ER Initial lab work done in the ER showed WBC 10.1, hemoglobin 14.4, platelet count 578, D-dimer 0.73, sodium 130, potassium 4, BUN 11, creatinine 0.55, troponin 0.012 EKG done in the ER showed heart rate of 114, no ST segment elevation or depression seen, no T-wave inversions seen. Chest x-ray done in the ER showed patchy bilateral lower lung opacity favor scarring CTA chest done showed suboptimal study without central acute pulmonary embolism, cannot entirely exclude smaller peripheral pulmonary emboli on this exam, suboptimal study with a right middle lobe acute infiltrate or edema Because of high suspicion of PE, patient started on pharmacy to dose heparin Patient admitted to internal medicine service 06/22. Patient seen and examined. States she feels much better. Vascular surgery eval to the patient, reviewed CT scans and ultrasound of lower extremities, at this time there is no suspicion of any DVT or PE, hepariniwas discontinued. States breathing is improved. 06/23. Patient seen and examined. Still complaining of congestion. Gets short of breath on exertion. REVIEW OF SYSTEMS: CONSTITUTIONAL: No fever, no malaise,. CARDIOVASCULAR: No chest pain, no palpitations, no syncope. PULMONARY: As mentioned above GASTROINTESTINAL: No diarrhea, no nausea, no vomiting, no abdominal pain. NEUROLOGICAL: No headaches, no weakness, PHYSICAL EXAMINATION: GENERAL: The patient is alert and oriented x3, not in any acute distress. Well developed, well nourished. HEENT: Pupils are round and equally reacting to light. EOMI. No scleral icterus. No conjunctival pallor. Normocephalic, atraumatic. No pharyngeal erythema. No thyromegaly. CARDIOVASCULAR: S1 and S2 present. No murmurs, rubs, or gallops. PULMONARY: Coarse breath sound bilaterally, no wheezing or crackles. ABDOMEN: Soft, nontender, nondistended, normoactive bowel sounds. No palpable organomegaly. MUSCULOSKELETAL: No joint swelling or deformity. EXTREMITIES: No cyanosis, clubbing, or pedal edema. NEUROLOGICAL: Gross neurological examination did not reveal any focal deficits. SKIN: No rashes. Assessment and plan Shortness of breath Acute hypoxic respiratory failure Viral induced asthma exacerbation Palpitation Bacterial pneumonia ruled out PE ruled out Monitor vital signs Monitor CBC Monitor CMP Continue telemetry monitoring Encourage use of incentive spirometer Continue oxygen supplementation aggressive bronchopulmonary hygiene Continue breathing treatments Continue IV Solu-Medrol Pulmonary following Labs and medication were reviewed.. Continue same treatment. Continue with symptomatic treatment. Resume home medication. Monitor labs and vitals. DVT and GI prophylaxis. Further recommendations as per clinical course of the patient Dictation was produced using [employer] dictation software. please excuse any grammatical, word or spelling errors. Objective - Vital Signs Vital signs: Vital Signs Temp 97.7 F 06/23/24 04:00 Pulse 108 H 06/23/24 08:39 Resp 16 06/23/24 08:00 BP 130/87 06/23/24 08:00 Pulse Ox 97 06/23/24 08:00 FiO2 Intake & Output 06/22/24 06/23/24 06/23/24 18:59 06:59 18:59 Intake Total 10 180 Balance 10 180 Weight 102.8 kg Intake: IV 10 0.9 10 Oral 180 Other: Voiding Method Toilet Toilet # Voids 1 1 1 - Labs CBC & Chem 7: 06/23/24 07:21 06/23/24 07:21 Labs: Abnormal Lab Results - Last 24 Hours (Table) 06/22/24 06/22/24 06/22/24 Range/Units 11:12 11:12 20:35 WBC (3.8-10.6) k/uL Plt Count 595 H (150-450) k/uL Neutrophils # (1.3-7.7) k/uL Sodium 135 L (137-145) mmol/L Creatinine 0.47 L (0.52-1.04) mg/dL Glucose 106 H (74-99) mg/dL POC Glucose (mg/dL) 158 H (70-110) mg/dL 06/23/24 06/23/24 06/23/24 Range/Units 06:20 07:21 07:21 WBC 13.4 H (3.8-10.6) k/uL Plt Count 783 H (150-450) k/uL Neutrophils # 11.1 H (1.3-7.7) k/uL Sodium (137-145) mmol/L Creatinine (0.52-1.04) mg/dL Glucose 152 H (74-99) mg/dL POC Glucose (mg/dL) 134 H (70-110) mg/dL
[2024-06-23] MEDS: guaiFENesin-Coden 100-10MG/5ML 10 ML CUP PO PRN (15:18)
[2024-06-23 16:25] LABS: Glucose,Whole Blood 177 mg/dL (70-110)
--- NOTE | 2024-06-23 16:53 | P.PN ---
Subjective Progress Note Date: 06/23/24 44-year-old female with a history of asthma, states, for the last week or so, she has not been feeling well. Actually, it may be actually 2 weeks. She apparently thought she had bronchitis. She was complaining of shortness of breath, cough, and congestion. She was coughing up a small amount of phlegm. No fever or chills. She does have a history of asthma, uses Singulair, rescue inhaler, and generic Advair, when she remembers to. She is a non-smoker. She does not vape. Current labs include a white count 10.1, hemoglobin 14.4, macro 42.8, platelet count 578,000. Sedimentation rate 69. D-dimer 0.73. Sodium 136, potassium 4, chlorides 101, CO2 26, BUN 11, creatinine 0.55. Troponins were negative x 3 C-reactive protein is 20.6. N-terminal proBNP was normal. Procalcitonin level was normal. Chest x-ray showed some scarring. Lower extremity Dopplers were negative. CT angiogram showed some atelectasis or infiltrate possibly in the right middle lobe. The patient is only as bit better since being here in the hospital. On today's evaluation of 06/23/2024, the patient is feeling better, less short of breath, less bronchospastic and wheezy. She remains on IV Solu-Medrol 60 mg every 6 hours. Oxygenation is been stable although the patient is not fully liberated from O2 and the patient remains on 2 L of oxygen by nasal cannula with a pulse ox of 93%. She refills non-smoker spastic and wheezy. A white cell count of 13.4 with hemoglobin 13.9 and a platelet count of 784. BUN is 12 with a creatinine of 0.5 and a sodium levels at 139. She remains on DuoNeb otherwise treatments [id number]. She is also recommendation Perforomist and Pulmicort updrafts twice a day. Rest of the home medications are below resumed. Objective - Vital Signs Vital signs: Vital Signs Temp 97.7 F 06/23/24 04:00 Pulse 108 H 06/23/24 08:39 Resp 16 06/23/24 08:00 BP 130/87 06/23/24 08:00 Pulse Ox 97 06/23/24 08:00 FiO2 Intake & Output 06/22/24 06/23/24 06/23/24 18:59 06:59 18:59 Intake Total 10 180 Balance 10 180 Weight 102.8 kg Intake: IV 10 0.9 10 Oral 180 Other: Voiding Method Toilet Toilet # Voids 1 1 1 - Exam No acute distress, oriented 3. Currently on 2 L. Saturation is 96 to 97%. No audible wheezing. No use of accessory muscles. HEENT examination is grossly unremarkable. Mucous membranes are moist. No oral lesions. Neck supple. Full range of motion. No adenopathy thyromegaly or neck vein distention. Cardiovascular examination reveals regular rhythm rate. S1-S2 normal. No S3 or S4. No discernible murmur noted. Lungs reveal diffuse inspiratory and expiratory wheezes and rhonchi. She is quite bronchospastic. No crackles. Breath sounds are equal bilaterally. Abdomen soft bowel sounds are heard. No masses or tenderness. Extremities are intact. No cyanosis clubbing or edema. Skin is without rash or lesion. Neurologic examination is brief but nonfocal. - Labs CBC & Chem 7: 06/23/24 07:21 06/23/24 07:21 Labs: Abnormal Lab Results - Last 24 Hours (Table) 06/22/24 06/22/24 06/22/24 Range/Units 11:12 11:12 20:35 WBC (3.8-10.6) k/uL Plt Count 595 H (150-450) k/uL Neutrophils # (1.3-7.7) k/uL Sodium 135 L (137-145) mmol/L Creatinine 0.47 L (0.52-1.04) mg/dL Glucose 106 H (74-99) mg/dL POC Glucose (mg/dL) 158 H (70-110) mg/dL 06/23/24 06/23/24 06/23/24 Range/Units 06:20 07:21 07:21 WBC 13.4 H (3.8-10.6) k/uL Plt Count 783 H (150-450) k/uL Neutrophils # 11.1 H (1.3-7.7) k/uL Sodium (137-145) mmol/L Creatinine (0.52-1.04) mg/dL Glucose 152 H (74-99) mg/dL POC Glucose (mg/dL) 134 H (70-110) mg/dL Assessment and Plan Plan: Acute asthma exacerbation with reactive bronchospasm and bronchial inflammation. Rule out viral tracheobronchitis Acute hypoxic respiratory failure currently on 2 L of oxygen nasal cannula Chronic scar along the lingula, sequelae of previous infection/pneumonia Obesity with a BMI of 35.5 History of longstanding asthma, mild intermittent asthma History of gastroesophageal reflux disease. Hyperlipidemia. History of uterine fibroids. Lifelong non-smoker Obesity Dis[employer] got [employer] Herniated neck disk and pain Thrombocytosis and she has been on Hydrea Plan: Clinically stable, improving, will continue same treatment for another 24 hours. Will consider tapering steroids as of tomorrow based on her overall clinical condition. Labs were reviewed. Chest x-ray was reviewed. Patient is improvi ng. I also reviewed the CT of the chest and there is no evidence of any pulm embolism. There is evidence of chronic changes in her lungs with some scarring and some mild bronchiectatic changes and limited groundglass opacity in the right midlung and scarring involving the lingula. This could be a sequelae of previous infection/pneumonia. The patient states that during her childhood, she was told that she was a blue baby and she had some issues with oxygenation and subsequently during infancy, she has developed pneumonia. A full CAT/HRCT of the chest is recommended postdischarge.
[2024-06-23 20:16] LABS: Glucose,Whole Blood 138 mg/dL (70-110)
[2024-06-24 06:28] LABS: Glucose,Whole Blood 149 mg/dL (70-110)
[2024-06-24 11:25] LABS: Glucose,Whole Blood 150 mg/dL (70-110)
--- NOTE | 2024-06-24 13:47 | P.PN ---
Subjective Progress Note Date: 06/24/24 44-year-old female with a history of asthma, states, for the last week or so, she has not been feeling well. Actually, it may be actually 2 weeks. She apparently thought she had bronchitis. She was complaining of shortness of breath, cough, and congestion. She was coughing up a small amount of phlegm. No fever or chills. She does have a history of asthma, uses Singulair, rescue inhaler, and generic Advair, when she remembers to. She is a non-smoker. She does not vape. Current labs include a white count 10.1, hemoglobin 14.4, macro 42.8, platelet count 578,000. Sedimentation rate 69. D-dimer 0.73. Sodium 136, potassium 4, chlorides 101, CO2 26, BUN 11, creatinine 0.55. Troponins were negative x 3 C-reactive protein is 20.6. N-terminal proBNP was normal. Procalcitonin level was normal. Chest x-ray showed some scarring. Lower extremity Dopplers were negative. CT angiogram showed some atelectasis or infiltrate possibly in the right middle lobe. The patient is only as bit better since being here in the hospital. On today's evaluation of 06/23/2024, the patient is feeling better, less short of breath, less bronchospastic and wheezy. She remains on IV Solu-Medrol 60 mg every 6 hours. Oxygenation is been stable although the patient is not fully liberated from O2 and the patient remains on 2 L of oxygen by nasal cannula with a pulse ox of 93%. She refills non-smoker spastic and wheezy. A white cell count of 13.4 with hemoglobin 13.9 and a platelet count of 784. BUN is 12 with a creatinine of 0.5 and a sodium levels at 139. She remains on DuoNeb otherwise treatments [id number]. She is also recommendation Perforomist and Pulmicort updrafts twice a day. Rest of the home medications are below resumed. On 06/24/2024, the patient distal bronchospastic and wheezy although less compared to yesterday. Oxygenation is being monitored. On room air oxygen, the patient's pulse ox around 88%. Based on that, we decided to keep the patient hospital for another 24 hours for bronchodilator and steroid treatment. She has no new complaints otherwise for now. No new labs are available from today. She is calm and comfortable. No new complaints otherwise for now. Objective - Vital Signs Vital signs: Vital Signs Temp 97.9 F 06/24/24 08:00 Pulse 104 H 06/24/24 09:32 Resp 16 06/24/24 08:00 BP 131/79 06/24/24 08:00 Pulse Ox 93 L 06/24/24 08:00 FiO2 Intake & Output 06/23/24 06/24/24 06/24/24 18:59 06:59 18:59 Intake Total 540 10 Balance 540 10 Weight 103.6 kg Intake: IV 10 0.9 10 Oral 540 Other: Voiding Method Toilet Toilet # Voids 1 2 - Exam No acute distress, oriented 3. Currently on 2 L. Saturation is 96 to 97%. No audible wheezing. No use of accessory muscles. HEENT examination is grossly unremarkable. Mucous membranes are moist. No oral lesions. Neck supple. Full range of motion. No adenopathy thyromegaly or neck vein distention. Cardiovascular examination reveals regular rhythm rate. S1-S2 normal. No S3 or S4. No discernible murmur noted. Lungs reveal diffuse inspiratory and expiratory wheezes and rhonchi. She is quite bronchospastic. No crackles. Breath sounds are equal bilaterally. Abdomen soft bowel sounds are heard. No masses or tenderness. Extremities are intact. No cyanosis clubbing or edema. Skin is without rash or lesion. Neurologic examination is brief but nonfocal. - Labs CBC & Chem 7: 06/23/24 07:21 06/23/24 07:21 Labs: Abnormal Lab Results - Last 24 Hours (Table) 06/23/24 06/23/24 06/23/24 Range/Units 11:32 16:22 20:15 POC Glucose (mg/dL) 196 H 177 H 138 H (70-110) mg/dL 06/24/24 Range/Units 06:25 POC Glucose (mg/dL) 149 H (70-110) mg/dL Assessment and Plan Plan: Acute asthma exacerbation with reactive bronchospasm and bronchial inflammation. Rule out viral tracheobronchitis, clinically improving Acute hypoxic respiratory failure currently on 2 L of oxygen nasal cannula, still hypoxic on room air oxygen with a pulse ox of 88 to 89% on room air O2. Chronic scar along the lingula, sequelae of previous infection/pneumonia Obesity with a BMI of 35.5 History of longstanding asthma, mild intermittent asthma History of gastroesophageal reflux disease. Hyperlipidemia. History of uterine fibroids. 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 Continue IV Solu-Medrol for another 24 hours I also reviewed the CT of the chest and there is no evidence of any pulm embolism. There is evidence of chronic changes in her lungs with some scarring and some mild bronchiectatic changes and limited groundglass opacity in the right midlung and scarring involving the lingula. This could be a sequelae of previous infection/pneumonia. The patient states that during her childhood, she was told that she was a blue baby and she had some issues with oxygenation and subsequently during infancy, she has developed pneumonia. A full CAT/HRCT of the chest is recommended postdischarge.
--- NOTE | 2024-06-24 14:10 | P.PN ---
Subjective Progress Note Date: 06/24/24 patient is a 44-year-old lady with past medical history significant for hyperlipidemia, thrombocytosis asthma, GERD presented the ER because of palpitations and shortness of breath for 1 week. Patient stated that she has not been feeling well over the last 1 week. Patient has been having shortness of breath and increased chest congestion. Patient stated that a lot of her coworkers were sick with similar symptoms so she thought it was most likely viral. For the last 2 days patient is noticing that her heart rate has been elevated, she was complaining of palpitations. Patient was also complaining of increasing shortness of breath. Denied any chest pain. Denies any fever or chills. There is no complaint of cough. Because of this feeling of increasing shortness of breath and palpitation, patient went to the ER Initial lab work done in the ER showed WBC 10.1, hemoglobin 14.4, platelet count 578, D-dimer 0.73, sodium 130, potassium 4, BUN 11, creatinine 0.55, troponin 0.012 EKG done in the ER showed heart rate of 114, no ST segment elevation or depression seen, no T-wave inversions seen. Chest x-ray done in the ER showed patchy bilateral lower lung opacity favor scarring CTA chest done showed suboptimal study without central acute pulmonary embolism, cannot entirely exclude smaller peripheral pulmonary emboli on this exam, suboptimal study with a right middle lobe acute infiltrate or edema Because of high suspicion of PE, patient started on pharmacy to dose heparin Patient admitted to internal medicine service 06/22. Patient seen and examined. States she feels much better. Vascular surgery eval to the patient, reviewed CT scans and ultrasound of lower extremities, at this time there is no suspicion of any DVT or PE, hepariniwas discontinued. States breathing is improved. 06/23. Patient seen and examined. Still complaining of congestion. Gets short of breath on exertion. 06/24. Patient seen and examined. Currently on 3 L of oxygen. Gets short of breath on exertion. Complaining of congestion. Denies any chest pain. REVIEW OF SYSTEMS: CONSTITUTIONAL: No fever, no malaise,. CARDIOVASCULAR: No chest pain, no palpitations, no syncope. PULMONARY: As mentioned above GASTROINTESTINAL: No diarrhea, no nausea, no vomiting, no abdominal pain. NEUROLOGICAL: No headaches, no weakness, PHYSICAL EXAMINATION: GENERAL: The patient is alert and oriented x3, not in any acute distress. Well developed, well nourished. HEENT: Pupils are round and equally reacting to light. EOMI. No scleral icterus. No conjunctival pallor. Normocephalic, atraumatic. No pharyngeal erythema. No thyromegaly. CARDIOVASCULAR: S1 and S2 present. No murmurs, rubs, or gallops. PULMONARY: Coarse breath sound bilaterally, no wheezing or crackles. ABDOMEN: Soft, nontender, nondistended, normoactive bowel sounds. No palpable organomegaly. MUSCULOSKELETAL: No joint swelling or deformity. EXTREMITIES: No cyanosis, clubbing, or pedal edema. NEUROLOGICAL: Gross neurological examination did not reveal any focal deficits. SKIN: No rashes. Assessment and plan Shortness of breath Acute hypoxic respiratory failure Viral induced asthma exacerbation Palpitation Bacterial pneumonia ruled out PE ruled out Monitor vital signs Monitor CBC Monitor CMP Continue telemetry monitoring Encourage use of incentive spirometer Continue oxygen supplementation aggressive bronchopulmonary hygiene Continue breathing treatments Continue IV Solu-Medrol Pulmonary following Labs and medication were reviewed.. Continue same treatment. Continue with symptomatic treatment. Resume home medication. Monitor labs and vitals. DVT and GI prophylaxis. Further recommendations as per clinical course of the patient Dictation was produced using [employer] dictation software. please excuse any grammatical, word or spelling errors. Objective - Vital Signs Vital signs: Vital Signs Temp 97.8 F 06/24/24 12:00 Pulse 102 H 06/24/24 12:29 Resp 18 06/24/24 12:11 BP 134/90 06/24/24 12:00 Pulse Ox 88 L 06/24/24 12:11 FiO2 Intake & Output 06/23/24 06/24/24 06/24/24 18:59 06:59 18:59 Intake Total 540 10 540 Balance 540 10 540 Weight 103.6 kg Intake: IV 10 0.9 10 Oral 540 540 Other: Voiding Method Toilet Toilet Toilet # Voids 1 2 3 # Bowel Movements 0 - Labs CBC & Chem 7: 06/23/24 07:21 06/23/24 07:21 Labs: Abnormal Lab Results - Last 24 Hours (Table) 06/23/24 06/23/24 06/24/24 Range/Units 16:22 20:15 06:25 POC Glucose (mg/dL) 177 H 138 H 149 H (70-110) mg/dL 06/24/24 Range/Units 11:24 POC Glucose (mg/dL) 150 H (70-110) mg/dL
[2024-06-24 16:45] LABS: Glucose,Whole Blood 193 mg/dL (70-110)
[2024-06-24 21:04] LABS: Glucose,Whole Blood 140 mg/dL (70-110)
[2024-06-25 06:03] LABS: Glucose,Whole Blood 144 mg/dL (70-110)
[2024-06-25 09:07] VITALS: RESP 16
[2024-06-25] MEDS: predniSONE 20 MG TAB PO SCH (10:09)
[2024-06-25 11:25] LABS: Glucose,Whole Blood 133 mg/dL (70-110)
[2024-06-25 11:34] VITALS: BP 146/95; PULSE 114; TEMP 98.1
--- NOTE | 2024-06-25 13:45 | P.PN ---
Subjective Progress Note Date: 06/25/24 44-year-old female with a history of asthma, states, for the last week or so, she has not been feeling well. Actually, it may be actually 2 weeks. She apparently thought she had bronchitis. She was complaining of shortness of breath, cough, and congestion. She was coughing up a small amount of phlegm. No fever or chills. She does have a history of asthma, uses Singulair, rescue inhaler, and generic Advair, when she remembers to. She is a non-smoker. She does not vape. Current labs include a white count 10.1, hemoglobin 14.4, macro 42.8, platelet count 578,000. Sedimentation rate 69. D-dimer 0.73. Sodium 136, potassium 4, chlorides 101, CO2 26, BUN 11, creatinine 0.55. Troponins were negative x 3 C-reactive protein is 20.6. N-terminal proBNP was normal. Procalcitonin level was normal. Chest x-ray showed some scarring. Lower extremity Dopplers were negative. CT angiogram showed some atelectasis or infiltrate possibly in the right middle lobe. The patient is only as bit better since being here in the hospital. On today's evaluation of 06/23/2024, the patient is feeling better, less short of breath, less bronchospastic and wheezy. She remains on IV Solu-Medrol 60 mg every 6 hours. Oxygenation is been stable although the patient is not fully liberated from O2 and the patient remains on 2 L of oxygen by nasal cannula with a pulse ox of 93%. She refills non-smoker spastic and wheezy. A white cell count of 13.4 with hemoglobin 13.9 and a platelet count of 784. BUN is 12 with a creatinine of 0.5 and a sodium levels at 139. She remains on DuoNeb otherwise treatments [id number]. She is also recommendation Perforomist and Pulmicort updrafts twice a day. Rest of the home medications are below resumed. On 06/24/2024, the patient distal bronchospastic and wheezy although less compared to yesterday. Oxygenation is being monitored. On room air oxygen, the patient's pulse ox around 88%. Based on that, we decided to keep the patient hospital for another 24 hours for bronchodilator and steroid treatment. She has no new complaints otherwise for now. No new labs are available from today. She is calm and comfortable. No new complaints otherwise for now. 06/25/2024, I am seeing the patient for a follow-up. Significantly improved and the patient is able to maintain oxygen saturation above 90% on room air oxygen. Much less bronchospastic and wheezy at this point in time. Cough and congestion has subsided. The patient has no other new complaints otherwise for now. No new labs are available from today. Objective - Vital Signs Vital signs: Vital Signs Temp 97.9 F 06/25/24 08:00 Pulse 108 H 06/25/24 08:42 Resp 16 06/25/24 08:00 BP 134/92 06/25/24 08:00 Pulse Ox 94 L 06/25/24 08:17 FiO2 Intake & Output 06/24/24 06/25/24 06/25/24 18:59 06:59 18:59 Intake Total 776 10 120 Balance 776 10 120 Weight 104.3 kg Intake: IV 10 0.9 10 Oral 776 120 Other: Voiding Method Toilet Toilet # Voids 3 2 # Bowel Movements 0 - Exam No acute distress, oriented 3. Currently on room air oxygen. No audible wheezing. No use of accessory muscles. HEENT examination is grossly unremarkable. Mucous membranes are moist. No oral lesions. Neck supple. Full range of motion. No adenopathy thyromegaly or neck vein distention. Cardiovascular examination reveals regular rhythm rate. S1-S2 normal. No S3 or S4. No discernible murmur noted. Lungs reveal significant improvement in air entry bilaterally, limited expiratory wheeze are still present. Overall condition has improved significantly. Abdomen soft bowel sounds are heard. No masses or tenderness. Extremities are intact. No cyanosis clubbing or edema. Skin is without rash or lesion. Neurologic examination is brief but nonfocal. - Labs CBC & Chem 7: 06/23/24 07:21 06/23/24 07:21 Labs: Abnormal Lab Results - Last 24 Hours (Table) 06/24/24 06/24/24 06/24/24 Range/Units 11:24 16:43 21:04 POC Glucose (mg/dL) 150 H 193 H 140 H (70-110) mg/dL 06/25/24 Range/Units 06:02 POC Glucose (mg/dL) 144 H (70-110) mg/dL Assessment and Plan Plan: Acute asthma exacerbation with reactive bronchospasm and bronchial inflammation. Rule out viral tracheobronchitis, clinically improving Acute hypoxic respiratory failure currently on room air oxygen and the patient's oxygenation is essentially improved Chronic scar along the lingula, sequelae of previous infection/pneumonia Obesity with a BMI of 35.5 History of longstanding asthma, mild intermittent asthma History of gastroesophageal reflux disease. Hyperlipidemia. History of uterine fibroids. 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 The patient is currently on room air oxygen. She is much less bronchospastic and wheezy. Discontinue IV Solu-Medrol start the patient on prednisone burst taper starting with 40 mg to be tapered by 10 mg every 4 days. Symbicort 2 puffs twice a day as maintenance on outpatient basis. The patient will obtain a home nebulizer and she will use albuterol nebulized treatments in addition to HFA on an as-needed basis.I also reviewed the CT of the chest and there is no evidence of any pulm embolism. There is evidence of chronic changes in her lungs with some scarring and some mild bronchiectatic ch anges and limited groundglass opacity in the right midlung and scarring involving the lingula. This could be a sequelae of previous infection/pneumonia. The patient states that during her childhood, she was told that she was a blue baby and she had some issues with oxygenation and subsequently during infancy, she has developed pneumonia. A full CAT/HRCT of the chest is recommended postdischarge. The patient can be discharged home today.
[2024-06-25] MEDS ORDERED: SYMBICORT 160-4.5 MCG INHALER INHALATION SCH (20:00)
--- NOTE | 2024-06-25 20:41 | P.DS ---
Providers Date of admission: 06/21/24 03:07 Expected date of discharge: 06/25/24 Attending physician: Parag Robert Consults: 06/21/24 10:11 Consult Physician Routine Consulting Provider: Clifton Beard Consult Reason/Comments: Shortness of breath, possible PE Do you want consulting provider notified?: Yes Primary care physician: Janell B [facility] Course: patient is a 44-year-old lady with past medical history significant for hyperlipidemia, thrombocytosis asthma, GERD presented the ER because of palpitations and shortness of breath for 1 week. Patient stated that she has not been feeling well over the last 1 week. Patient has been having shortness of breath and increased chest congestion. Patient stated that a lot of her coworkers were sick with similar symptoms so she thought it was most likely viral. For the last 2 days patient is noticing that her heart rate has been elevated, she was complaining of palpitations. Patient was also complaining of increasing shortness of breath. Denied any chest pain. Denies any fever or chills. There is no complaint of cough. Because of this feeling of increasing shortness of breath and palpitation, patient went to the ER Initial lab work done in the ER showed WBC 10.1, hemoglobin 14.4, platelet count 578, D-dimer 0.73, sodium 130, potassium 4, BUN 11, creatinine 0.55, troponin 0.012 EKG done in the ER showed heart rate of 114, no ST segment elevation or depression seen, no T-wave inversions seen. Chest x-ray done in the ER showed patchy bilateral lower lung opacity favor scarring CTA chest done showed suboptimal study without central acute pulmonary embolism, cannot entirely exclude smaller peripheral pulmonary emboli on this exam, suboptimal study with a right middle lobe acute infiltrate or edema Because of high suspicion of PE, patient started on pharmacy to dose heparin Patient admitted to internal medicine service 06/22. Patient seen and examined. States she feels much better. Vascular surgery eval to the patient, reviewed CT scans and ultrasound of lower extremities, at this time there is no suspicion of any DVT or PE, hepariniwas discontinued. States breathing is improved. 06/23. Patient seen and examined. Still complaining of congestion. Gets short of breath on exertion. 06/24. Patient seen and examined. Currently on 3 L of oxygen. Gets short of breath on exertion. Complaining of congestion. Denies any chest pain. June 25: Breathing much improved. Oxygen check was 92% on room air. Patient stated somebody at her work had respiratory issues. And some other people also got sick. She will follow-up with Dr. Montalvo outpatient. Told to use incentive spirometry. Some tachycardia felt to be from the bronchodilators. On examination: VITAL SIGNS: [98.1, 110, 16, 146 x 95, 92% room air] GENERAL APPEARANCE: Up in a chair, eating. HEENT: Normal external appearance of nose and ear. Oral cavity normal EYES: Pupils equal. Conjunctiva normal. NECK: JVD not raised. Mass not palpable. RESPIRATORY: Respiratory effort normal. Lungs some left basilar crackles. CARDIOVASCULAR: First and second sounds normal. No edema. ABDOMEN: Soft. Liver and spleen not palpable. No tenderness. No mass palpable. PSYCHIATRY: Alert and oriented x3. Mood and affect normal. INVESTIGATIONS, reviewed in the clinical context: June 23: White count 13.4 hemoglobin 13.9 platelets 783 potassium 4.3 creatinine 0.53 Troponin I x 2 less than 0.012. proBNP 22. Procalcitonin 0.06 2D echo: EF 55 to 60%. LVH. Lower extremity left right venous Doppler: Negative for DVT Chest CTA: Negative for central PE. Some right middle lobe infiltrate/edema. Assessment and plan: -Acute viral right middle lobe pneumonia -Acute hypoxic respiratory failure secondary to pneumonia: Better -Acute bronchospasm/asthma secondary to viral infection Symbicort. Albuterol as needed -Obesity BMI 36 Weight loss measures -GERD Prilosec -Hyperlipidemia Lipitor -Thrombocytosis, genetic mutation Hydroxyurea -Full code Care was discussed length with the patient. Told to use incentive spirometry. Will follow-up with Dr. Montalvo outpatient. Use albuterol as needed. Symbicort. Prednisone taper. Discussion and discharge planning more than 35 minutes Plan - Discharge Summary Discharge Rx Participant: No New Discharge Prescriptions: New predniSONE 10 mg PO DAILY #30 tab Albuterol Sulfate [Albuterol Sulfate Hfa] 1 puff PO Q4-6H #8.5 gm Budesonide-Formot 160-4.5 Mcg [Symbicort 160-4.5 Mcg Inhaler] 2 puff INHALATION RT-BID #1 each Continue Omeprazole [PriLOSEC] 20 mg PO BID Amitriptyline HCl [Elavil] 25 mg PO HS Montelukast [Singulair] 10 mg PO HS Acetaminophen-Codeine 300-30mg [Tylenol w/codeine #3] 2 tab PO HS Vitamin C/Biotin [Hair, Skin and Nails Chew] 1 tab PO DAILY Fluticasone Nasal [place] [Flonase Nasal [place]] 1 spray EA NOSTRIL DAILY Fexofenadine HCl [Stephanie Allergy] 180 mg PO DAILY traZODone HCL [Desyrel] 50 mg PO HS PRN PRN Reason: Insomnia Multivitamins, Thera [Multivitamin (formulary)] 1 tab PO DAILY Hydroxyurea [Hydrea] 500 mg PO DAILY Atorvastatin [Lipitor] 20 mg PO HS methocarbamoL [Robaxin-750] 750 mg PO HS Discharge Medication List Acetaminophen-Codeine 300-30mg [Tylenol w/codeine #3] 2 tab PO HS 10/02/16 [History] Amitriptyline HCl [Elavil] 25 mg PO HS 10/02/16 [History] Montelukast [Singulair] 10 mg PO HS 10/02/16 [History] Omeprazole [PriLOSEC] 20 mg PO BID 10/02/16 [History] Vitamin C/Biotin [Hair, Skin and Nails Chew] 1 tab PO DAILY 10/03/16 [History] Fexofenadine HCl [Stephanie Allergy] 180 mg PO DAILY 02/09/17 [History] Fluticasone Nasal [place] [Flonase Nasal [place]] 1 spray EA NOSTRIL DAILY 02/09/17 [History] Atorvastatin [Lipitor] 20 mg PO HS 02/29/24 [History] Multivitamins, Thera [Multivitamin (formulary)] 1 tab PO DAILY 02/29/24 [Hi story] traZODone HCL [Desyrel] 50 mg PO HS PRN 02/29/24 [History] Hydroxyurea [Hydrea] 500 mg PO DAILY 06/21/24 [History] methocarbamoL [Robaxin-750] 750 mg PO HS 06/21/24 [History] Albuterol Sulfate [Albuterol Sulfate Hfa] 1 puff PO Q4-6H #8.5 gm 06/25/24 [Rx] Budesonide-Formot 160-4.5 Mcg [Symbicort 160-4.5 Mcg Inhaler] 2 puff INHALATION RT-BID #1 each 06/25/24 [Rx] predniSONE 10 mg PO DAILY #30 tab 06/25/24 [Rx] Follow up Appointment(s)/Referral(s): Janell Arvizu MD [Primary Care Provider] - 1-2 days (Call to make hospital follow up appointment) Shawn Montalvo MD [STAFF PHYSICIAN] - 07/14/24 9:00 am (Dr Beard) Patient Instructions/Handouts: Asthma (DC) Discharge Disposition: HOME SELF-CARE
--- NOTE | 2024-07-14 11:59 | CDI ---
Documentation Clarification Form Date: 07/14/2024 From: THIEN Alejo Admit Date: 06/21/2024 03:07:00 AM Patient Name: Laura Garcia Visit Number: [id number] Discharge Date: 06/25/2024 03:10:00 PM ATTENTION: The Clinical Documentation Specialists (CDI) and [facility] Coding Staff appreciate your assistance in clarifying documentation. Please respond to the clarification below the line at the bottom and electronically sign. The CDI & [facility] Coding staff will review the response and follow-up if needed. Please note: Queries are made part of the Legal Health Record. If you have any questions, please contact the author of this message via ITS. Doctor/Provider: Parag Robert Patient is admitted with palpitations and shortness of breath along with chest congestion. 06/20 Chest Xray impression: Patchy bilateral lung opacity favors scarring" 06/21 CTA chest impression: Suboptimal study without central acute pulmonary embolism. Suboptimal study with right middle lobe acute infiltrate and/or edema. Treatment: Levaquin 750mg IV once 06/21 the Q24 hours once 06/22 then dc'd Perforomist 20mcg inhalation BID start 06/22 Pulmicort Inhalation 1mg/2ml BID start 06/22 Duoneb 0.5mg/3ml inhalation QID given 06/23 Bacterial pneumonia is ruled out on IM note 06/23. 06/25 Progress note states "Acute asthma exacerbation with reactive bronchospasm and bronchial inflammation. Rule out viral tracheobronchitis, clinically improving" DC Summary states: "Acute viral right middle lobe pneumonia, acute hypoxic respiratory failure secondary to pneumonia, acute bronchospasm/asthma secondary to viral infection" Rule out viral tracheobronchitis is documented on progress notes 06/23-06/25 and viral pneumonia is documented on the discharge summary. Additional clarification regarding the final respiratory diagnosis is requested. Please clarify the final respiratory diagnosis, if known: [ + ] Viral pneumonia [ ] Viral tracheobronchitis [ ] Other, please specify [ ] Unable to determine MTDD
== END 2024-06-25 15:10 | disposition home or self-care (01) | DRG 193 ==
LOC: EC 21:51 → 3SCARD 06-21 03:07
PROVIDERS: ADMIT Hospitalist; ATTEND Hospitalist
DX: J12.9 Viral pneumonia, unspecified (principal); J96.01 Acute respiratory failure with hypoxia; J45.901 Unspecified asthma with (acute) exacerbation; K21.9 Gastro-esophageal reflux disease without esophagitis; D75.838 Other thrombocytosis; E78.5 Hyperlipidemia, unspecified; E66.9 Obesity, unspecified; Z68.36 Body mass index [BMI] 36.0-36.9, adult; Z79.899 Other long term (current) drug therapy
CPT/HCPCS: 36415; 71046; 71275; 80053; 81025; 83880; 84145; 84484; 85025; 85379; 85610; 85652; 85730; 86140; 93005; 93306; 93970; 94640; 94760; 96365; 96366; 96375; 99285

== ENCOUNTER 2024-09-08 07:24 | Day surgery (SDC) | payer BC ==
--- NOTE | 2024-09-08 07:28 | P.GSHP ---
History of Present Illness H&P Date: 09/08/24 Chief Complaint: Biliary dyskinesia 44-year-old female seen in the office about 1 month ago. Refer to that history and physical. Patient with intermittent right upper quadrant pain. Happening with increased frequency. History of previous gallstones per patient. Recent i maging normal except a low ejection fraction of 17% on HIDA scan. Past Medical History Past Medical History: Asthma, GERD/Reflux, Hyperlipidemia, Musculoskeletal Disorder Additional Past Medical History / Comment(s): Back Pain Radiating Down CHANDLER LEGS, sciatic nerve Lt. leg. hx. 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 wisdom Teeth. PAIN PROC. EGD. uterine artery embolization. Past Anesthesia/Blood Transfusion Reactions: No Reported Reaction, Motion Sickness Additional Past Anesthesia/Blood Transfusion Reaction / Comment(s): Grandma has had hard time coming out of Anesthesia X1 W/ CAT SCAN W/ SEDATION. Smoking Status: Never smoker - Past Family History Mother Family Medical History: No Reported History Medications and Allergies Home Medications Medication Instructions Recorded Confirmed Type Acetaminophen-Codeine 300-30mg 2 tab PO HS 10/02/16 09/03/24 History [Tylenol w/codeine #3] Amitriptyline HCl [Elavil] 25 mg PO HS 10/02/16 09/03/24 History Montelukast [Singulair] 10 mg PO HS 10/02/16 09/03/24 History Omeprazole [PriLOSEC] 20 mg PO BID 10/02/16 09/03/24 History Vitamin C/Biotin [Hair, Skin and 1 tab PO DAILY 10/03/16 09/03/24 History Nails Chew] Fexofenadine HCl [Stephanei Allergy] 180 mg PO DAILY 02/09/17 09/03/24 History Fluticasone Nasal [place] [Flonase 1 spray EA NOSTRIL DAILY PRN 02/09/17 09/03/24 History Nasal [place]] Atorvastatin [Lipitor] 20 mg PO HS 02/29/24 09/03/24 History Multivitamins, Thera [Multivitamin 1 tab PO DAILY 02/29/24 09/03/24 History (formulary)] traZODone HCL [Desyrel] 50 mg PO HS PRN 02/29/24 09/03/24 History Hydroxyurea [Hydrea] 500 mg PO DAILY 06/21/24 09/03/24 History methocarbamoL [Robaxin-750] 750 mg PO HS 06/21/24 09/03/24 History Albuterol Sulfate [Albuterol 1 puff PO Q4-6H PRN 09/03/24 09/03/24 History Sulfate Hfa] Cholecalciferol [Vitamin D3 (125 125 mcg PO DAILY 09/03/24 09/03/24 History Mcg = 5000 Iu)] Fluticasone/Umeclidin/Vilanter 1 puff INHALATION DAILY 09/03/24 09/03/24 History [Trelegy Ellipta 200-62.5-25] Allergies Allergy/AdvReac Type Severity Reaction Status Date / Time Sulfa (Sulfonamide Allergy Severe Anaphylaxis Verified 09/03/24 15:16 Antibiotics) amoxicillin Allergy Anaphylaxis Verified 09/03/24 15:16 Penicillins Allergy Anaphylaxis Verified 09/03/24 15:16 Surgical - Exam Physical exam: General: Well-developed, well-nourished HEENT: Normocephalic, sclerae nonicteric Abdomen: Nontender, nondistended Extremities: No edema Neuro: Alert and oriented Assessment and Plan (1) Biliary dyskinesia Narrative/Plan: 44-year-old female with biliary dyskinesia. Will proceed with laparoscopic, possible open cholecystectomy at this time. Risks of bleeding, infection, bile leak, bile duct injury, retained common bile duct stone, trocar injury, conversion to an open procedure, hernia, anesthesia related complications were reviewed. The patient understands and wishes to proceed. Current Visit: Yes Status: Acute Code(s): K82.8 - OTHER SPECIFIED DISEASES OF GALLBLADDER SNOMED Code(s): 941033338
[2024-09-08] MEDS: IV FLUID CONTINUATION 1,000 ML IV ONE (07:47)
[2024-09-08 07:58] LABS: Glucose,Whole Blood 95 mg/dL (70-110)
[2024-09-08] MEDS: LACTATED RINGERS 1,000 ML IV SCH (07:59)
[2024-09-08] MEDS: ACETAMINOPHEN TAB 500 MG TAB PO PRN (08:01)
[2024-09-08] MEDS: DEXAMETHASONE SOD PHOSPHATE 4 MG/ML 1 ML VIAL IV ONE (08:02)
[2024-09-08] MEDS: ONDANSETRON 4 MG/2 ML VIAL IVP ONE (08:02)
[2024-09-08] MEDS: HEPARIN SODIUM,PORCINE 5,000 UNIT/ML 1 ML VIAL SQ PRN (08:02)
[2024-09-08] MEDS: SCOPOLAMINE 1 MG/72 HR PATCH TRANSDERM STA (08:09)
[2024-09-08] MEDS ORDERED: ALBUTEROL HFA INHALER INHALATION ONE (09:05)
[2024-09-08] MEDS ORDERED: PROPOFOL 10 MG/ML 20 ML VIAL IV ONE (09:05)
[2024-09-08] MEDS ORDERED: MIDAZOLAM 2 MG/2 ML VIAL ONE (09:05)
[2024-09-08] MEDS ORDERED: NEOSTIGMINE 1 MG/ML 10 ML VIAL ONE (09:05)
[2024-09-08] MEDS ORDERED: ESMOLOL 100 MG/10 ML VIAL ONE (09:05)
[2024-09-08] MEDS ORDERED: ROCURONIUM 10 MG/ML (5 ML VIAL) IV ONE (09:05)
[2024-09-08] MEDS ORDERED: HYDROmorphone (PF) 1 MG/ML ONE (09:05)
[2024-09-08] MEDS ORDERED: SUCCINYLCHOLINE CHLORIDE 200 MG/10 ML VIAL IV ONE (09:05)
[2024-09-08] MEDS ORDERED: LIDOCAINE 1% INJ 10MG/ML (20 ML MDV) ONE (09:05)
[2024-09-08] MEDS ORDERED: GLYCOPYRROLATE 0.2 MG/ML 2 ML VIAL ONE (09:05)
[2024-09-08] MEDS ORDERED: fentaNYL (PF) 50 MCG/ML 2 ML AMP ONE (09:05)
[2024-09-08] MEDS: BUPIVACAINE (PF) 0.25% 30 ML VIAL SQ ONE ×2 (09:16)
--- NOTE | 2024-09-08 10:23 | P.OP ---
Date of Procedure: 09/08/24 Procedure(s) Performed: PREOPERATIVE DIAGNOSIS: Biliary dyskinesia POSTOPERATIVE DIAGNOSIS: Same PROCEDURE: Laparoscopic cholecystectomy SURGEON: Daron EBL: 5 cc ANESTHESIA: Gen. COMPLICATIONS: None OPERATIVE PROCEDURE: The patient was brought and placed on the operating room table in the supine position. The patient was placed under general anesthesia at that time. The abdomen was prepped and draped in the usual sterile fashion. A small vertical infraumbilical incision was made. The fascia was grasped with the Yaneth forceps. The fascia was retracted anteriorly. The Veress needle was advanced into the peritoneal cavity. The saline drop test was normal. Insufflation took place up to 15 mmHg. A 5 mm optical trocar was advanced and the peritoneal cavity. 2 additional 5 mm trochars were placed in the right upper quadrant under direct visualization. A 12 mm trocar was advanced into the epigastric incision site. The gallbladder was retracted superiorly and laterally. The peritoneum overlying the infundibulum was bluntly dissected. The patient's cystic duct was visualized. The junction between the cystic duct common and hepatic duct was identified. The critical view of safety was achieved after blunt dissection. The cystic duct was then divided after placement of 3 12 mm clips on the patient's side and one on the specimen side. The cystic artery was identified and clipped as well. A small vessel was seen along the gallbladder fossa and clipped as well. The gallbladder was then removed from the liver bed using electrocautery. The gallbladder was then removed from the epigastric trocar site with an Endo Catch bag. The gallbladder fossa was irrigated with saline. There was no evidence of any bleeding or biliary drainage seen. The fascia at the 12 millimeter site was closed using a [place] 0 Vicryl stitch. The trochars were then removed. The skin at all 4 sites was closed using a 4-0 Monocryl stitch. Skin glue was utilized on the incision sites. At the end of this procedure the sponge and needle counts were correct. DISPOSITION: Stable to the recovery room
[2024-09-08 10:29] VITALS: TEMP 97.4
[2024-09-08] MEDS: HYDROmorphone 0.5 MG/0.5 ML SYRINGE IVP PRN (10:52)
[2024-09-08 11:05] VITALS: RESP 16
[2024-09-08] MEDS: SODIUM CHLORIDE 0.9% 1,000 ML IV ONE (11:53)
[2024-09-08] MEDS ORDERED: IBUPROFEN 600 MG TAB PO SCH (12:00)
[2024-09-08 12:09] VITALS: BP 148/94; PULSE 111
[2024-09-08] MEDS ORDERED: ACETAMINOPHEN TAB 325 MG TAB PO SCH (15:00)
== END 2024-09-08 13:08 | disposition home or self-care (01) ==
LOC: OR 07:24
PROVIDERS: ATTEND Surgery
DX: K81.1 Chronic cholecystitis (principal); K21.9 Gastro-esophageal reflux disease without esophagitis; J45.909 Unspecified asthma, uncomplicated; E78.5 Hyperlipidemia, unspecified; D25.9 Leiomyoma of uterus, unspecified; Z88.0 Allergy status to penicillin; Z88.1 Allergy status to other antibiotic agents; Z88.2 Allergy status to sulfonamides; Z79.51 Long term (current) use of inhaled steroids; Z79.899 Other long term (current) drug therapy
CPT/HCPCS: 81025; 88304; 47562; J2250; J0330; J1644; J1100; J2710; J0690; J2405; J2003; J3010; J1171 ×2; J2704; J0665; J1805; J1596

== ENCOUNTER 2025-01-30 11:40 | Emergency (ER) | payer BC ==
[2025-01-30 11:43] VITALS: RESP 18
--- NOTE | 2025-01-30 12:05 | ED ---
Extremity Problem HPI - General Chief complaint: Extremity Problem,Nontraumatic Stated complaint: nerve pain Time Seen by Provider: 01/30/25 12:00 Source: patient, RN notes reviewed Mode of arrival: wheelchair Limitations: no limitations - History of Present Illness Initial comments: 44-year-old female presenting for left lower extremity pain x 2 days. States she has a history of sciatica in which she goes to physical therapy for. States for the past 2 days she has been having a severe flareup with severe pain and cramping to the left calf. States the pain shoots from the left lower back. States it took her an hour to get dressed this morning due to pain with movement. States the only way she is comfortable is to lay on her left side. Denies saddle anesthesia or bowel or bladder incontinence. Denies numbness, tingling, or weakness of the bilateral lower extremities. - Related Data Home Medications Medication Instructions Recorded Confirmed Acetaminophen-Codeine 300-30mg 2 tab PO HS 10/02/16 09/08/24 [Tylenol w/codeine #3] Amitriptyline HCl [Elavil] 25 mg PO HS 10/02/16 09/08/24 Montelukast [Singulair] 10 mg PO HS 10/02/16 09/08/24 Omeprazole [PriLOSEC] 20 mg PO BID 10/02/16 09/08/24 Vitamin C/Biotin [Hair, Skin and 1 tab PO DAILY 10/03/16 09/08/24 Nails Chew] Fexofenadine HCl [Stephanie Allergy] 180 mg PO DAILY 02/09/17 09/08/24 Fluticasone Nasal [place] [Flonase 1 spray EA NOSTRIL DAILY PRN 02/09/17 09/08/24 Nasal [place]] Atorvastatin [Lipitor] 20 mg PO HS 02/29/24 09/08/24 Multivitamins, Thera [Multivitamin 1 tab PO DAILY 02/29/24 09/08/24 (formulary)] traZODone HCL [Desyrel] 50 mg PO HS PRN 02/29/24 09/08/24 Hydroxyurea [Hydrea] 500 mg PO DAILY 06/21/24 09/08/24 methocarbamoL [Robaxin-750] 750 mg PO HS 06/21/24 09/08/24 Albuterol Sulfate [Albuterol 1 puff PO Q4-6H PRN 09/03/24 09/08/24 Sulfate Hfa] Cholecalciferol [Vitamin D3 (125 125 mcg PO DAILY 09/03/24 09/08/24 Mcg = 5000 Iu)] Fluticasone/Umeclidin/Vilanter 1 puff INHALATION DAILY 09/03/24 09/08/24 [Trelegy Ellipta 200-62.5-25] Previous Rx's Medication Instructions Recorded Lidocaine 4% Patch 1 patch TOPICAL DAILY PRN 7 Days 01/30/25 #7 patch Allergies Allergy/AdvReac Type Severity Reaction Status Date / Time Sulfa (Sulfonamide Allergy Severe Anaphylaxis Verified 09/08/24 07:40 Antibiotics) amoxicillin Allergy Anaphylaxis Verified 09/08/24 07:40 ciprofloxacin [From Cipro] Allergy Anaphylaxis Verified 09/08/24 07:45 Penicillins Allergy Anaphylaxis Verified 09/08/24 07:40 sulfamethoxazole Allergy Anaphylaxis Verified 09/08/24 07:45 [From Bactrim] trimethoprim [From Bactrim] Allergy Anaphylaxis Verified 09/08/24 07:45 Review of Systems ROS Statement: Those systems with pertinent positive or pertinent negative responses have been documented in the HPI. ROS Other: All systems not noted in ROS Statement are negative. Past Medical History Past Medical History: Asthma, GERD/Reflux, Hyperlipidemia, Musculoskeletal Disorder Additional Past Medical History / Comment(s): Back Pain Radiating Down CHANDLER LEGS, sciatic nerve Lt. leg. hx. 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 wisdom Teeth. PAIN PROC. EGD. uterine artery embolization. Past Anesthesia/Blood Transfusion Reactions: No Reported Reaction, Motion Sickness Additional Past Anesthesia/Blood Transfusion Reaction / Comment(s): Grandma has had hard time coming out of Anesthesia X1 W/ CAT SCAN W/ SEDATION. Past Psychological History: No Psychological Hx Reported Smoking Status: Never smoker Past Alcohol Use History: None Reported Past Drug Use History: None Reported - Past Family History Mother Family Medical History: No Reported History General Exam Limitations: no limitations General appearance: alert, in no apparent distress GI/Abdominal exam: Present: soft, normal bowel sounds. Absent: distended, tenderness, guarding, rebound, rigid Back exam: Present: normal inspection, other (Full strength and range of motion of bilateral lower extremities. Full sensation and DP pulses bilaterally). Absent: full ROM (Limited range of motion due to pain), tenderness, CVA tenderness (R), CVA tenderness (L), vertebral tenderness Neurological exam: Present: alert, oriented X3 Psychiatric exam: Present: normal affect, normal mood Skin exam: Present: warm, dry, intact, normal color. Absent: rash Course Vital Signs 01/30/25 11:41 Temperature 97.8 F Pulse Rate 101 H Respiratory 18 Rate Blood Pressure 151/97 O2 Sat by Pulse 98 Oximetry Medical Decision Making - Medical Decision Making Was pt. sent in by a medical professional or institution (, PA, CNC MACHINE OPERATOR, urgent care, hospital, or intermediate...) When possible be specific @ -No Did you speak to anyone other than the patient for history (EMS, parent, family, police, friend...)? What history was obtained from this source @ -No Did you review nursing and triage notes (agree or disagree)? Why? @ -I reviewed and agree with nursing and triage notes Were old charts reviewed (outside hosp., previous admission, EMS record, old EKG, old radiological studies, urgent care reports/EKG's, intermediate records)? Report findings @ -No old charts were reviewed Differential Diagnosis (chest pain, altered mental status, abdominal pain women, abdominal pain men, vaginal bleeding, weakness, fever, dyspnea, syncope, headache, dizziness, GI bleed, back pain, seizure, CVA, palpatations, mental health, musculoskeletal)? @ -Differential Musculoskeletal Muscular strain, contusion, ligament sprain, fracture, arthritis, septic arthritis, bursitis, cellulitis, muscle spasm, nerve compression, DVT, arterial occlusion, herpes zoster, electrolyte abnormality, tumor.... This is not meant to be in all inclusive list EKG interpreted by me (3pts min.). @ -None X-rays interpreted by me (1pt min.). @ -None done CT interpreted by me (1pt min.). @ -None done U/S interpreted by me (1pt. min.). @ -None done What testing was considered but not performed or refused? (CT, X-rays, U/S, labs)? Why? @ -None What meds were considered but not given or refused? Why? @ -None Did you discuss the management of the patient with other professionals (professionals i.e. Dr., PA, CNC MACHINE OPERATOR, lab, RT, psych nurse, social director, manager employment, teacher, employment security officer, rehabilitation case coordinator)? Give summary @ -No Was smoking cessation discussed for >3mins.? @ -No Was critical care preformed (if so, how long)? @ -No Were there social determinants of health that impacted care today? How? (Homelessness, low income, unemployed, alcoholism, drug addiction, transportation, low edu. Level, literacy, decrease access to med. care, long term, rehab)? @ -No Was there de-escalation of care discussed even if they declined (Discuss DNR or withdrawal of care, Hospice)? DNR status @ -No What co-morbidities impacted this encounter? (DM, HTN, Smoking, COPD, CAD, Cancer, CVA, ARF, Chemo, Hep., AIDS, mental health diagnosis, sleep apnea, morbid obesity)? @ -None Was patient admitted / discharged? Hospital course, mention meds given and route, prescriptions, significant lab abnormalities, going to OR and other pertinent info. @ -Discharge. 44-year-old female with history of sciatica presenting for acute sciatica flare on the left side. Denies injury or trauma. No red flag symptoms. Neurovascularly intact. Patient is provided with Toradol, Zanaflex, and Solu-Medrol. Upon reevaluation, patient reports significant improvement of symptoms and feels stable for discharge. Appropriate return precautions and supportive care/follow-up care discussed with patient. Discussed case with my ED attending Dr. Mike. Undiagnosed new problem with uncertain prognosis? @ -No Drug Therapy requiring intensive monitoring for toxicity (Heparin, Nitro, Insulin, Cardizem)? @ -No Were any procedures done? @ -No Diagnosis/symptom? @ -Sciatica of left side Acute, or Chronic, or Acute on Chronic? @ -Acute Uncomplicated (without systemic symptoms) or Complicated (systemic symptoms)? @ -Uncomplicated Side effects of treatment? @ -No Exacerbation, Progression, or Severe Exacerbation? @ -No Poses a threat to life or bodily function? How? (Chest pain, [place], [place], pneumonia, PE, COPD, DKA, ARF, appy, cholecystitis, CVA, Diverticulitis, Homicidal, Suicidal, threat to staff... and all critical care pts) @ -No Disposition Clinical Impression: Sciatica, left side Disposition: HOME SELF-CARE Condition: Stable Instructions (If sedation given, give patient instructions): Sciatica (ED) Additional Instructions: Use lidocaine patches as needed for pain. Please return to the Emergency Department if symptoms worsen or any other concerns. Prescriptions: Lidocaine 4% Patch 1 patch TOPICAL DAILY PRN 7 Days #7 patch PRN Reason: Pain Is patient prescribed a controlled substance at d/c from ED?: No Referrals: Janell Arvizu MD [Primary Care Provider] - 1-2 days Time of Disposition: 13:56
[2025-01-30] MEDS: tiZANidine 4 MG TAB PO STA (12:16)
[2025-01-30] MEDS: methylPREDNISolone SOD SUCCI 125 MG/2 ML VIAL IM ONE (12:17)
[2025-01-30] MEDS: KETOROLAC 15 MG/ML 1 ML VIAL IM STA (12:18)
[2025-01-30 14:10] VITALS: BP 145/88; PULSE 88; TEMP 97.9
== END 2025-01-30 14:10 | disposition home or self-care (01) ==
LOC: EC 11:40
DX: M54.32 Sciatica, left side (principal); Z88.0 Allergy status to penicillin; Z88.1 Allergy status to other antibiotic agents; Z88.2 Allergy status to sulfonamides
CPT/HCPCS: 99283; 96372; J1885; J2919

== ENCOUNTER 2025-01-31 16:11 | Inpatient (IN) | payer BC ==
[2025-01-31] MEDS: ORPHENADRINE 30 MG/ML 2 ML VIAL IM STA (19:36)
[2025-01-31] MEDS: HYDROmorphone 1 MG/ML 1 ML SYRINGE IVP STA (19:36)
--- NOTE | 2025-01-31 19:41 | CT ---
EXAMINATION TYPE: CT pelvis wo con DATE OF EXAM: 01/31/2025 7:28 PM COMPARISON: None CLINICAL INDICATION: Female, 44 years old with history of leg numbness, pain; back pain, no injury TECHNIQUE: Axial CT pelvis wo con;Sagittal and coronal reformats were created on a separate workstat ion. Contrast used: mL of , (none if empty) Oral contrast used: (none if empty) CT DLP: 610 mGycm, Automated exposure control for dose reduction was used. FINDINGS: BLADDER: No evidence for wall thickening or mass given limitations of exam. REPRODUCTIVE: . The uterus. Multiple peripherally calcified probable fibroids. ABDOMEN & PELVIS STOMACH AND BOWEL: No evidence of bowel obstruction. PERITONEUM/RETROPERITONEUM: No evidence of pneumoperitoneum or free fluid. VASCULATURE: No evidence of aortic aneurysm. MUSCULOSKELETAL: No acute osseous abnormalities LYMPH NODES: No gross evidence for lymphadenopathy. SOFT TISSUE/ABDOMINAL WALL: Fat-containing umbilical hernia. IMPRESSION: 1. No evidence for acute process. 2. IUD present in the uterus. 3. Multiple suspected degenerating fibroids in the uterus. 4. The appendix appears within normal limits. [facility], , 01/31/2025 7:38 PM
--- NOTE | 2025-01-31 19:43 | CT ---
EXAMINATION TYPE: CT lumbar spine wo con DATE OF EXAM: 01/31/2025 7:28 PM COMPARISON: MRI 12/01/2011.a. CLINICAL INDICATION: Female, 44 years old with history of back pain, leg numbness; PHH, back pain, no injury TECHNIQUE: Multiple axial images were obtained from the midportion of T11 through the sacroiliac tierra nts. Soft tissue and bone windows in coronal and sagittal planes were obtained and reviewed. 3-D ref ormats of the bones were created on a separate workstation and submitted for review. Contrast used: mL of , (None, if empty). Oral contrast used: (None, if empty). CT DLP: 1135 mGycm, Automated exposure control for dose reduction was used. FINDINGS: Alignment: There are 5 lumbar type vertebral bodies within normal alignment. Bone: No evidence of fracture is identified. Discs: T12-L1: No spinal canal or neural foraminal stenosis is identified. L1-L2: No spinal canal or neural foraminal stenosis is identified. L2-L3: No spinal canal or neural foraminal stenosis is identified. L3-L4: No spinal canal or neural foraminal stenosis is identified. L4-L5: Eccentric left disc extrusion with mild to moderate spinal canal stenosis likely effacing mult iple nerve roots. The neural foramen are grossly patent CT. L5-S1: No spinal canal or neural foraminal stenosis is identified. Other: IUD present in the uterus. Multiple peripherally calcified probable degenerated fibroids. IMPRESSION: 1. L4-L5 Eccentric left disc extrusion with mild to moderate spinal canal stenosis likely effacing m ultiple nerve roots. MRI recommended for further evaluation. 2. No evidence for spinal fracture. [facility], , 01/31/2025 7:41 PM
--- NOTE | 2025-01-31 22:04 | ED ---
Back Pain HPI - General Chief Complaint: Back Pain/Injury Stated Complaint: L Leg pain/numbness/tingling Time Seen by Provider: 01/31/25 16:20 Source: patient Limitations: no limitations - History of Present Illness Initial Comments: 44-year-old female with past medical history of asthma, high cholesterol presents emergency department with sciatica. Patient started having back pain last week. She did see her primary care doctor and has had several prescribed medications including Tylenol 3, prednisone course, gabapentin, Flexeril. She states the pain starts in the left cheek and radiates into the left leg. No trauma. No saddle anesthesia. No bowel or bladder incontinence. Denies any fevers. No history of intravenous drug use. The pain has been so significant that she came into the emergency department yesterday and received a lidocaine patch as well as pain medications. States that she has so much pain that is causing her to feel mentally unwell. Patient states that she needs a break from the pain. She does have an appointment scheduled with pain management however this is not until February 17. Also was supposed to see a neurosurgeon on February 24. Patient has had difficulty ambulating. States that there is no position she can sit and that she gets comfortable. She denies weakness in her lower extremities. No abdominal pain. No concern for . No other alleviating, precipitating or modifying factors - Related Data Home Medications Medication Instructions Recorded Confirmed Amitriptyline HCl [Elavil] 25 mg PO HS 10/02/16 02/01/25 Montelukast [Singulair] 10 mg PO HS 10/02/16 02/01/25 Omeprazole [PriLOSEC] 20 mg PO BID 10/02/16 02/01/25 Vitamin C/Biotin [Hair, Skin and 1 tab PO DAILY 10/03/16 02/01/25 Nails Chew] Fexofenadine HCl [Stephanie Allergy] 180 mg PO DAILY 02/09/17 02/01/25 Atorvastatin [Lipitor] 20 mg PO HS 02/29/24 02/01/25 Multivitamins, Thera [Multivitamin 1 tab PO DAILY 02/29/24 02/01/25 (formulary)] traZODone HCL [Desyrel] 50 mg PO HS PRN 02/29/24 02/01/25 Hydroxyurea [Hydrea] 500 mg PO DAILY 06/21/24 02/01/25 Albuterol Sulfate [Albuterol 1 puff INHALATION RT-Q4H PRN 09/03/24 02/01/25 Sulfate Hfa] Fluticasone/Umeclidin/Vilanter 1 puff INHALATION RT-DAILY 09/03/24 02/01/25 [Trelegy Ellipta 200-62.5-25] Albuterol Nebulized [Ventolin 2.5 mg INHALATION RT-QID PRN 02/01/25 02/01/25 Nebulized] Gabapentin [Neurontin] 300 mg PO Q8H PRN 02/01/25 02/01/25 Pseudoephedrine 12Hr [Sudafed 12 120 mg PO DAILY 02/01/25 02/01/25 Hour] Previous Rx's Medication Instructions Recorded Acetaminophen-Codeine 300-30mg 1 tab PO Q6H PRN #60 tab 02/03/25 [Tylenol w/codeine #3] Baclofen [Lioresal] 10 mg PO TID PRN #90 tab 02/03/25 predniSONE 10 mg PO DAILY #30 tab 02/03/25 Allergies Allergy/AdvReac Type Severity Reaction Status Date / Time Sulfa (Sulfonamide Allergy Severe Anaphylaxis Verified 02/01/25 09:16 Antibiotics) amoxicillin Allergy Anaphylaxis Verified 02/01/25 09:16 ciprofloxacin [From Cipro] Allergy Anaphylaxis Verified 02/01/25 09:16 Penicillins Allergy Anaphylaxis Verified 02/01/25 09:16 sulfamethoxazole Allergy Anaphylaxis Verified 02/01/25 09:16 [From Bactrim] trimethoprim [From Bactrim] Allergy Anaphylaxis Verified 02/01/25 09:16 Review of Systems ROS Statement: Those systems with pertinent positive or pertinent negative responses have been documented in the HPI. ROS Other: All systems not noted in ROS Statement are negative. Past Medical History Past Medical History: Asthma, GERD/Reflux, Hyperlipidemia, Musculoskeletal Disorder Additional Past Medical History / Comment(s): Back Pain Radiating Down CHANDLER LEGS, sciatic nerve Lt. leg. hx. 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 wisdom Teeth. PAIN PROC. EGD. uterine artery embolization. Past Anesthesia/Blood Transfusion Reactions: No Reported Reaction, Motion Sickness Additional Past Anesthesia/Blood Transfusion Reaction / Comment(s): Grandma has had hard time coming out of Anesthesia X1 W/ CAT SCAN W/ SEDATION. Past Psychological History: No Psychological Hx Reported Smoking Status: Never smoker Past Alcohol Use History: None Reported Past Drug Use History: None Reported - Past Family History Mother Family Medical History: No Reported History General Exam Limitations: no limitations General appearance: alert, in no apparent distress Head exam: Present: atraumatic, normocephalic, normal inspection Eye exam: Present: normal appearance, PERRL, EOMI. Absent: scleral icterus, conjunctival injection, periorbital swelling ENT exam: Present: normal exam, mucous membranes moist Neck exam: Present: normal inspection. Absent: tenderness, meningismus, lymphadenopathy Respiratory exam: Present: normal lung sounds bilaterally. Absent: respiratory distress, wheezes, rales, rhonchi, stridor Cardiovascular Exam: Present: regular rate, normal rhythm, normal heart sounds. Absent: systolic murmur, diastolic murmur, rubs, gallop, clicks GI/Abdominal exam: Present: soft, normal bowel sounds. Absent: distended, tenderness, guarding, rebound, rigid Extremities exam: Present: normal inspection, full ROM, normal capillary refill. Absent: tenderness, pedal edema, joint swelling, calf tenderness Back exam: Present: other (left si tenderness. 5 out of 5 muscle strength in the bilateral lower extremities) Neurological exam: Present: alert, oriented X3, CN II-XII intact Psychiatric exam: Present: normal affect, normal mood Skin exam: Present: warm, dry, intact, normal color. Absent: rash Course Vital Signs 01/31/25 01/31/25 02/01/25 16:14 22:17 02:50 Temperature 97.6 F 97.9 F 98.2 F Pulse Rate 121 H 96 98 Respiratory 18 20 16 Rate Blood Pressure 162/117 130/88 125/87 O2 Sat by Pulse 96 95 96 Oximetry 02/01/25 02/01/25 07:12 10:33 Temperature 98.8 F Pulse Rate 104 H 97 Respiratory 18 16 Rate Blood Pressure 132/94 138/94 O2 Sat by Pulse 95 99 Oximetry Medical Decision Making - Medical Decision Making Was pt. sent in by a medical professional or institution (Dr., PA, INSTRUCTOR WATCH ASSEMBLY, urgent care, hospital, or group home...) When possible be specific @ -No Did you speak to anyone other than the patient for history (EMS, parent, family, police, friend...)? What history was obtained from this source @ -No Did you review nursing and triage notes (agree or disagree)? Why? @ -I reviewed and agree with nursing and triage notes Were old charts reviewed (outside hosp., previous admission, EMS record, old EKG, old radiological studies, urgent care reports/EKG's, group home records)? Report findings @ -I reviewed the ED note from yesterday where patient was seen for same complaint Differential Diagnosis (chest pain, altered mental status, abdominal pain women, abdominal pain men, vaginal bleeding, weakness, fever, dyspnea, syncope, headache, dizziness, GI bleed, back pain, seizure, CVA, palpatations, mental health, musculoskeletal)? @ -Differential Back Pain: Strain, zoster, cauda equina syndrome, epidural abscess, vertebral osteomyelitis, discitis, fracture, subluxation, disc herniation, DJD, spinal stenosis, dissection, AAA, pancreatitis, peptic ulcer disease, pyelonephritis, kidney stone, this is not meant to be an all-inclusive list. EKG interpreted by me (3pts min.). @ -Not done X-rays interpreted by me (1pt min.). @ -None done CT interpreted by me (1pt min.). @ -Yes which demonstrates nerve effacement at L4-L5 U/S interpreted by me (1pt. min.). @ -None done What testing was considered but not performed or refused? (CT, X-rays, U/S, labs)? Why? @ -None What meds were considered but not given or refused? Why? @ -None Did you discuss the management of the patient with other professionals (professionals i.e. , KEVIN, INSTRUCTOR WATCH ASSEMBLY, lab, RT, psych nurse, director of social work, mica inspector, teacher, human resource officer, case management social worker)? Give summary @ -I spoke with Dr. Robert who agreed to admit the patient Was smoking cessation discussed for >3mins.? @ -No Was critical care preformed (if so, how long)? @ -No Were there social determinants of health that impacted care today? How? (Homelessness, low income, unemployed, alcoholism, drug addiction, tr ansportation, low edu. Level, literacy, decrease access to med. care, half-way, rehab)? @ -No Was there de-escalation of care discussed even if they declined (Discuss DNR or withdrawal of care, Hospice)? DNR status @ -No What co-morbidities impacted this encounter? (DM, HTN, Smoking, COPD, CAD, Cancer, CVA, ARF, Chemo, Hep., AIDS, mental health diagnosis, sleep apnea, morbid obesity)? @ -Back pain Was patient admitted / discharged? Hospital course, mention meds given and route, prescriptions, significant lab abnormalities, going to OR and other pertinent info. @ -Upon arrival patient seen and evaluated in room 32. Thorough history and physical exam was performed patient was given a dose of Norflex and Dilaudid. She is sent for CT which demonstrates nerve effacement at L4-L5. I do attempt to get the patient up and ambulate however she cannot and states she is in still considerable amount of pain. Patient given additional pain medications. At this time patient's pain is uncontrolled and therefore I did call Dr. Robert. He was agreeable to admit the patient with orthopedic spine and pain management consults. Patient was agreeable to this and she was admitted to the floor in able condition Undiagnosed new problem with uncertain prognosis? @ -No Drug Therapy requiring intensive monitoring for toxicity (Heparin, Nitro, Insulin, Cardizem)? @ -No Were any procedures done? @ -No Diagnosis/symptom? @ -Acute exacerbation of chronic back pain, L4-L5 disc herniation Acute, or Chronic, or Acute on Chronic? @ -Acute on chronic Uncomplicated (without systemic symptoms) or Complicated (systemic symptoms)? @ -Complicated Side effects of treatment? @ -No Exacerbation, Progression, or Severe Exacerbation? @ -Yes Poses a threat to life or bodily function? How? (Chest pain, [place], [place], pneumonia, PE, COPD, DKA, ARF, appy, cholecystitis, CVA, Diverticulitis, Homicidal, Suicidal, threat to staff... and all critical care pts) @ -No Disposition Clinical Impression: Lumbar spinal stenosis, Lumbar disc herniation, Sciatica, left side Disposition: ADMITTED IP TO THIS HOSP Is patient prescribed a controlled substance at d/c from ED?: No Time of Disposition: 23:03 Decision to Admit Reason: Admit from EC Decision Date: 01/31/25 Decision Time: 23:03
[2025-01-31] MEDS ORDERED: NALOXONE 0.4 MG/ML 1 ML VIAL IV PRN (23:03)
[2025-01-31] MEDS: PANTOPRAZOLE 40 MG TABLET PO SCH (23:23)
[2025-01-31] MEDS: ATORVASTATIN 20 MG TAB PO SCH (23:31)
[2025-01-31] MEDS: MONTELUKAST 10 MG TAB PO SCH (23:31)
[2025-02-01] MEDS: HYDROmorphone 1 MG/ML 1 ML SYRINGE IVP PRN (00:20)
[2025-02-01] MEDS: PANTOPRAZOLE 40 MG TABLET PO SCH (07:43)
[2025-02-01] MEDS: LORATADINE 10 MG TAB PO SCH (08:44)
[2025-02-01] MEDS: HYDROXYUREA 500 MG CAP PO SCH (08:45)
[2025-02-01] MEDS ORDERED: diazePAM 5 MG TAB PO STA (13:58)
--- NOTE | 2025-02-01 14:04 | P.CNOR ---
History of Present Illness - [facility] Consult date: 02/01/25 Requesting physician: Linda Denny Consult reason: low back pain, other (Severe left lower extremity radiculopathy) History of present illness: Patient is a very pleasant 44-year-old female who sees and examined at the bedside with her dad present for further evaluation of her lumbar spine. She states she has had some ongoing difficulty with her lumbar spine and left lower extremity. Her symptoms have been severe since last Sunday without specific injury. She does have some low back pain but her pain is most significant radiating down her left posterior lateral thigh with severe pain over the anterior corcoran and the top of the left foot. She does not have any right lower extremity radiculopathy. She does not have specific weakness in her bilateral lower extremities, but does feel some weakness at times with ambulation with her left leg like it will give out on her. While lying in bed, she has some benefit with keeping her left leg straight. She does state her symptoms have been ongoing since the end of 2023 without injury but have been progressively worsening and have become severe over the past week. She presented to her primary care provider's office last Sunday and was prescribed Tylenol #3, steroid medication, gabapentin, and cyclobenzaprine. Her symptoms did not improve. She presented to the emergency department yesterday for given the severity of her symptoms. She had injections for pain and a lidocaine patch and was discharged home. Her pain was not manageable and she presented back to the emergency department for further evaluation and was admitted. Consultation has already been placed with pain management. She has had lumbar CT imaging. After seeing her primary care provider, patient states she was referred to a neurosurgeon in [place] for 02/24/2025. Patient lives locally not in the [place] area. Patient is currently being seen and examined by medicine as well. Past Medical History Past Medical History: Asthma, GERD/Reflux, Hyperlipidemia, Musculoskeletal Disorder Additional Past Medical History / Comment(s): Back Pain Radiating Down CHANDLER LEGS, sciatic nerve Lt. leg. hx. 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 wisdom Teeth. PAIN PROC. EGD. uterine artery embolization. Past Anesthesia/Blood Transfusion Reactions: No Reported Reaction, Motion Sickness Additional Past Anesthesia/Blood Transfusion Reaction / Comm: Grandma has had hard time coming out of Anesthesia X1 W/ CAT SCAN W/ SEDATION. Past Psychological History: No Psychological Hx Reported Smoking Status: Never smoker Past Alcohol Use History: None Reported Past Drug Use History: None Reported - Past Family History Mother Family Medical History: No Reported History Medications and Allergies Home Medications Medication Instructions Recorded Confirmed Type Acetaminophen-Codeine 300-30mg 1 tab PO Q6H PRN 10/02/16 02/01/25 History [Tylenol w/codeine #3] Amitriptyline HCl [Elavil] 25 mg PO HS 10/02/16 02/01/25 History Montelukast [Singulair] 10 mg PO HS 10/02/16 02/01/25 History Omeprazole [PriLOSEC] 20 mg PO BID 10/02/16 02/01/25 History Vitamin C/Biotin [Hair, Skin and 1 tab PO DAILY 10/03/16 02/01/25 History Nails Chew] Fexofenadine HCl [Stephanie Allergy] 180 mg PO DAILY 02/09/17 02/01/25 History Atorvastatin [Lipitor] 20 mg PO HS 02/29/24 02/01/25 History Multivitamins, Thera [Multivitamin 1 tab PO DAILY 02/29/24 02/01/25 History (formulary)] traZODone HCL [Desyrel] 50 mg PO HS PRN 02/29/24 02/01/25 History Hydroxyurea [Hydrea] 500 mg PO DAILY 06/21/24 02/01/25 History methocarbamoL [Robaxin-750] 750 mg PO BID PRN 06/21/24 02/01/25 History Albuterol Sulfate [Albuterol 1 puff INHALATION RT-Q4H PRN 09/03/24 02/01/25 History Sulfate Hfa] Fluticasone/Umeclidin/Vilanter 1 puff INHALATION RT-DAILY 09/03/24 02/01/25 History [Trelegy Ellipta 200-62.5-25] Albuterol Nebulized [Ventolin 2.5 mg INHALATION RT-QID PRN 02/01/25 02/01/25 History Nebulized] Gabapentin [Neurontin] 300 mg PO Q8H PRN 02/01/25 02/01/25 History Pseudoephedrine 12Hr [Sudafed 12 120 mg PO DAILY 02/01/25 02/01/25 History Hour] predniSONE See Taper PO DIRECTED 02/01/25 02/01/25 History Allergies Allergy/AdvReac Type Severity Reaction Status Date / Time Sulfa (Sulfonamide Allergy Severe Anaphylaxis Verified 02/01/25 09:16 Antibiotics) amoxicillin Allergy Anaphylaxis Verified 02/01/25 09:16 ciprofloxacin [From Cipro] Allergy Anaphylaxis Verified 02/01/25 09:16 Penicillins Allergy Anaphylaxis Verified 02/01/25 09:16 sulfamethoxazole Allergy Anaphylaxis Verified 02/01/25 09:16 [From Bactrim] trimethoprim [From Bactrim] Allergy Anaphylaxis Verified 02/01/25 09:16 Physical Examination Physical exam: Patient is awake, alert, and oriented 3 Vital signs stable Good chest excursion with deep inspiration and expiration Abdomen soft nontender Examination of lumbar spine reveals skin is intact with no abrasions, lacerations, or bruises; no erythema, purulence or signs of infection Mild pain with palpation along the midline of the lower lumbar spine Dorsiflexion, plantarflexion, and extensor hallucis longus positive sustained bilaterally Lower extremity strength 5/5 bilaterally but movements are much slower with the left lower extremity No profound weakness with the left lower extremity No lower extremity hyperreflexia bilaterally Straight leg test negative bilateral lower extremities Negative Lasegue's test bilaterally No signs or symptoms of DVT; no calf pain No pain with internal and external rotation of the hips bilaterally Neurovascularly intact Results Pertinent studies: CT of the lumbar spine taken on 01/31/2025: L4-5 degenerative disc disease with apparent large left herniated nucleus pulposus resulting in severe left foraminal stenosis and central canal stenosis; overall alignment is adequate maintained; no spondylolisthesis; no compression fracture deformity CT of the pelvis taken on 01/31/2025: No evidence of acute process; IUD present in the uterus; multiple suspected degenerating fibroids in the uterus Assessment and Plan Assessment: Assessment: Intractable left lower extremity radiculopathy Low back pain Left L5 radiculopathy L4-5 degenerative disc disease L4-5 herniated nucleus pulposus with severe left foraminal stenosis and central canal stenosis Asthma Hyperlipidemia History uterine fibroids Obesity Claustrophobia (1) Herniated nucleus pulposus, L4-5 left Current Visit: Yes Status: Acute Code(s): M51.26 - OTHER INTERVERTEBRAL DISC DISPLACEMENT, LUMBAR REGION SNOMED Code(s): 26810930 (2) Lumbar back pain with radiculopathy affecting left lower extremity Current Visit: Yes Status: Acute Code(s): M54.16 - RADICULOPATHY, LUMBAR REGION SNOMED Code(s): 069477636 (3) Degenerative lumbar disc Current Visit: Yes Status: Acute Code(s): M51.369 - OTH INTVRT DISC DEGEN, LUM RGN W/O LUM BCK OR LW EXTRM PAIN SNOMED Code(s): 89045218 (4) Claustrophobia Current Visit: Yes Status: Acute Code(s): F40.240 - CLAUSTROPHOBIA SNOMED Code(s): 67202470 (5) Obesity (BMI 30-39.9) Current Visit: Yes Status: Acute Code(s): E66.9 - OBESITY, UNSPECIFIED SNOMED Code(s): 811784447 (6) Hyperlipidemia Current Visit: Yes Status: Acute Code(s): E78.5 - HYPERLIPIDEMIA, UNSPECIFIED SNOMED Code(s): 53545865 (7) Uterine fibroid Current Visit: Yes Status: Acute Code(s): D25.9 - LEIOMYOMA OF UTERUS, UNSPECIFIED SNOMED Code(s): 52467799 (8) Asthma Current Visit: Yes Status: Acute Code(s): J45.909 - UNSPECIFIED ASTHMA, UNCOMPLICATED SNOMED Code(s): 275764944 (9) Sciatica, left side Current Visit: Yes Status: Acute Code(s): M54.32 - SCIATICA, LEFT SIDE SNOMED Code(s): 969252575725191 Plan: Plan: 1. Patient has been experiencing low back pain with severe left lower extremity radiculopathy which has been significantly worsening over the past week. She is had treatment and evaluation through her primary care provider's office and presented to the emergency twice because of her symptoms. Her symptoms have not been well-controlled and she was admitted for further evaluation. Lumbar CT imaging does show apparent L4-5 large left paracentral disc herniation with severe left and central canal stenosis. Currently, we will plan to obtain lumbar MRI imaging for better visualization of her lumbar intervertebral discs, nerves, and spinal cord. Following completion and reviewing of lumbar MRI imaging, we will follow-up with the patient to discuss her results and further treatment options. Patient admits to claustrophobia. We will prescribe Valium 5 mg 1-2 tabs prior to her lumbar MRI imaging 2. Patient will continue be seen examined by medicine. Medicine has adjusted her medications for pain control. They have prescribed Tylenol # 3 and baclofen 5 mg. She was also prescribed Valium 5 mg IVP every 8 hours which she states was not beneficial. I have discontinued baclofen 5 mg and Naprosyn. I have discontinued IV Valium. Patient is prescribed Solu-Medrol 80 mg every 8 hours IV. I have prescribed baclofen 10 mg 3 times daily. She may continue with Tylenol #3 as needed for pain control as prescribed. 3. Currently, patient would like to try to work through conservative treatment options. Consultation has been placed with pain management. Time with Patient: Greater than 30 (Including obtaining history, physical examination, reviewing of imaging, and dictation.)
[2025-02-01] MEDS: Acetaminophen-Codeine 300-30mg TAB PO SCH (14:14)
[2025-02-01] MEDS: BACLOFEN 10 MG TAB PO PRN (14:15)
[2025-02-01] MEDS: BACLOFEN 10 MG TAB PO SCH (16:12)
[2025-02-01] MEDS: NAPROXEN 250 MG TAB PO SCH (16:12)
[2025-02-01] MEDS: methylPREDNISolone SOD SUCCI 125 MG/2 ML VIAL IV SCH (17:01)
--- NOTE | 2025-02-01 20:33 | P.HPIM ---
History of Present Illness H&P Date: 02/01/25 Chief Complaint: Back pain Very pleasant 44-year-old patient follows with Dr. Christa Arvizu. Chronic medical condition include asthma, GERD, hyperlipidemia. Chronic thrombocytosis from genetic mutation./Essential thrombocythemia. Insomnia, chronic sinus Patient is accompanied by her father in the room. Patient states she has had back pain since the age of 18. Later felt to be sciatica with some flareup on on and off. And also has had some slight herniated disc. 2 years ago she started having increasing flareups. But continue to manage with therapy and acupuncture. In 2016 she also had 2 epidural shots. With some help. 10 days ago patient started having far more increased pain and in the 5 days pain became unbearable. She has been following with a chiropractor. She is supposed to see orthopedic spine on February 24 through her family doctor. She does get the pain that radiates down the left leg to the back and from the knee goes down to the foot. Also suffers from muscle spasms. Now the patient is hardly having trouble walking. No involvement of bowel or bladder. Finding it difficult to sit on the toilet seat. Review of systems: GEN.: None EYES: None HEENT: None NECK: None RESPIRATORY: None CARDIOVASCULAR: None GASTROINTESTINAL: None GENITOURINARY: None MUSCULOSKELETAL: As above LYMPHATICS: None HEMATOLOGICAL: None PSYCHIATRY: None NEUROLOGICAL: Insomnia Social history: Employed at [employer] No smoking alcohol. Lives with her parents Physical examination: VITAL SIGNS: 98.8, 97, 16, 138 x 94, 99% GENERAL: BMI 37.6, lying in bed on the left side legs extended. EYES: Pupils equal. Conjunctiva amie l. HEENT: External appearance of nose and ears normal, oral cavity grossly normal. NECK: JVD not raised; masses not palpable. HEART: First and second heart sounds are normal; no edema. LUNGS: Respiratory rate normal; clear to auscultation. ABDOMEN: Soft, nontender, liver spleen not palpable, no masses palpable. PSYCH: Alert and oriented x3; mood and affect slightly anxious l. MUSCULOSKELETAL:No Clubbing/cyanosis;muscles-grossly intact. Straight leg raising left leg about 15 degrees. Right leg about 30 degrees. Some hyperreflexia in the knee joint specially left side NEUROLOGICAL: Cranial nerves grossly intact; no facial asymmetry, power and sensation grossly intact. LYMPHATICS: No lymph nodes palpable in the axilla and neck INVESTIGATIONS, reviewed in the clinical context: Lumbar CT scan: L4-L5 eccentric left disc extrusion with mild to moderate spinal canal stenosis likely effacing multiple nerve roots. Assessment plan: - Acute on chronic low back pain: Present for a long time. Symptoms got started getting worse in last 2 years. With increasing flareup. Patient does go to the chiropractic. Some physical therapy. Pain becomes more severe in the last 10 especially in the last 5 days really having trouble walking. No involvement of bowel up bladder. CT scan findings as above. For better pain management will add naproxen 250 mg, 3 times daily. Baclofen 5 mg 3 times daily. Tylenol 3 4 times a day scheduled. IV Solu-Medrol. K-pad Orthopedics consulted - Left leg radiculopathy from herniated disc Pain control - L4-L5, extensive disc extrusion, impinging on many nerves Orthopedic consulted - Chronic insomnia Trazodone, Elavil - Acute on chronic neuropathic pain Elavil. Neurontin. - GERD PPI - Moderate persistent asthma Albuterol as needed. Trelegy Ellipta - Chronic sinusitis Sudafed 12-hour - Essential thrombocythemia Hydroxyurea - Hyperlipidemia Lipitor Added naproxen scheduled, Tylenol 3 scheduled, baclofen scheduled. K-pad. Solu-Medrol. Discussed with the patient and the father. Patient has significant pain. Barely able to walk. Orthopedics team is ordered MRI of the spine. Pain medications as above. Given the complexity and severity of patient's condition expect the patient to be in the hospital at least for 2 overnights Past Medical History Past Medical History: Asthma, GERD/Reflux, Hyperlipidemia, Musculoskeletal Disorder Additional Past Medical History / Comment(s): Back Pain Radiating Down CHANDLER LEGS, sciatic nerve Lt. leg. hx. 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 wisdom Teeth. PAIN PROC. EGD. uterine artery embolization. Past Anesthesia/Blood Transfusion Reactions: No Reported Reaction, Motion Sickness Additional Past Anesthesia/Blood Transfusion Reaction / Comment(s): Grandma has had hard time coming out of Anesthesia X1 W/ CAT SCAN W/ SEDATION. Past Psychological History: No Psychological Hx Reported Smoking Status: Never smoker Past Alcohol Use History: None Reported Past Drug Use History: None Reported - Past Family History Mother Family Medical History: No Reported History Medications and Allergies Home Medications Medication Instructions Recorded Confirmed Type Acetaminophen-Codeine 300-30mg 1 tab PO Q6H PRN 10/02/16 02/01/25 History [Tylenol w/codeine #3] Amitriptyline HCl [Elavil] 25 mg PO HS 10/02/16 02/01/25 History Montelukast [Singulair] 10 mg PO HS 10/02/16 02/01/25 History Omeprazole [PriLOSEC] 20 mg PO BID 10/02/16 02/01/25 History Vitamin C/Biotin [Hair, Skin and 1 tab PO DAILY 10/03/16 02/01/25 History Nails Chew] Fexofenadine HCl [Stephanie Allergy] 180 mg PO DAILY 02/09/17 02/01/25 History Atorvastatin [Lipitor] 20 mg PO HS 02/29/24 02/01/25 History Multivitamins, Thera [Multivitamin 1 tab PO DAILY 02/29/24 02/01/25 History (formulary)] traZODone HCL [Desyrel] 50 mg PO HS PRN 02/29/24 02/01/25 History Hydroxyurea [Hydrea] 500 mg PO DAILY 06/21/24 02/01/25 History methocarbamoL [Robaxin-750] 750 mg PO BID PRN 06/21/24 02/01/25 History Albuterol Sulfate [Albuterol 1 puff INHALATION RT-Q4H PRN 09/03/24 02/01/25 History Sulfate Hfa] Fluticasone/Umeclidin/Vilanter 1 puff INHALATION RT-DAILY 09/03/24 02/01/25 History [Trelegy Ellipta 200-62.5-25] Albuterol Nebulized [Ventolin 2.5 mg INHALATION RT-QID PRN 02/01/25 02/01/25 History Nebulized] Gabapentin [Neurontin] 300 mg PO Q8H PRN 02/01/25 02/01/25 History Pseudoephedrine 12Hr [Sudafed 12 120 mg PO DAILY 02/01/25 02/01/25 History Hour] predniSONE See Taper PO DIRECTED 02/01/25 02/01/25 History Allergies Allergy/AdvReac Type Severity Reaction Status Date / Time Sulfa (Sulfonamide Allergy Severe Anaphylaxis Verified 02/01/25 09:16 Antibiotics) amoxicillin Allergy Anaphylaxis Verified 02/01/25 09:16 ciprofloxacin [From Cipro] Allergy Anaphylaxis Verified 02/01/25 09:16 Penicillins Allergy Anaphylaxis Verified 02/01/25 09:16 sulfamethoxazole Allergy Anaphylaxis Verified 02/01/25 09:16 [From Bactrim] trimethoprim [From Bactrim] Allergy Anaphylaxis Verified 02/01/25 09:16 Physical Exam Vitals: Vital Signs Temp Pulse Pulse Resp BP BP Pulse Ox 02/01/25 20:04 101 H 02/01/25 20:02 99.1 F 101 H 16 131/80 95 02/01/25 13:58 98.6 F 119 H 17 133/81 96 02/01/25 11:23 98.2 F 103 H 17 129/85 95 02/01/25 10:33 98.8 F 97 16 138/94 99 02/01/25 07:12 104 H 18 132/94 95 02/01/25 02:50 98.2 F 98 16 125/87 96 01/31/25 22:17 97.9 F 96 20 130/88 95 Intake and Output 02/01/25 02/01/25 02/01/25 06:59 14:59 22:59 Other: Voiding Method Toilet # Voids 2 Weight 108.862 kg
[2025-02-01] MEDS: GABAPENTIN 300 MG CAP PO PRN (21:08)
[2025-02-01] MEDS: AMITRIPTYLINE HCL 25 MG TAB PO SCH (21:37)
[2025-02-01] MEDS: ALBUTEROL NEBULIZED 2.5 MG/3 ML INHALATION PRN (23:44)
[2025-02-02] MEDS: SYMBICORT 160-4.5 MCG INHALER INHALATION SCH (08:14)
[2025-02-02] MEDS: TIOTROPIUM 2.5 MCG INHALER INHALATION SCH (08:14)
--- NOTE | 2025-02-02 08:31 | P.PN ---
Progress Note - Text Progress Note Date: 02/02/25 Orthopedic spine: History of present illness: Patient is a very pleasant 44-year-old female who sees and examined at the bedside for follow-up evaluation of her lumbar spine. She states she has had some ongoing difficulty with her lumbar spine and left lower extremity. Her symptoms have been severe since last Sunday without specific injury. She does have some low back pain but her pain is most significant radiating down her left posterior lateral thigh with severe pain over the anterior corcoran and the top of the left foot. She does not have any right lower extremity radiculopathy. She does not have specific weakness in her bilateral lower extremities, but does feel some weakness at times with ambulation with her left leg like it will give out on her. While lying in bed, she has some benefit with keeping her left leg straight. She does state her symptoms have been ongoing since the end of 2023 without injury but have been progressively worsening and have become severe over the past week. She presented to her primary care provider's office last Sunday and was prescribed Tylenol #3, steroid medication, gabapentin, and cyclobenzaprine. Her symptoms did not improve. She presented to the emergency department yesterday for given the severity of her symptoms. She had injections for pain and a lidocaine patch and was discharged home. Her pain was not manageable and she presented back to the emergency department for further evaluation and was admitted. After being seen and examined yesterday, she was started on Solu-Medrol 80 mg IV every 8 hours and baclofen 10 mg 3 times daily. She was started on Tylenol #3 by medicine. Since that time she does feel her pain has been better controlled but continues to be present. Her pain was significant with the left lower extremity around 3:30 this morning and she did have some pain control difficulty at that time. Consultation has already been placed with pain management. MRI imaging of the lumbar spine was ordered yesterday. Nursing states the safety sheet was just sent down to MRI this morning so the patient's MRI has not yet been scheduled. After seeing her primary care provider, patient states she was referred to a neurosurgeon in [place] for 02/24/2025. Patient lives locally not in the [place] area. Patient is currently being seen and examined by medicine as well. Physical exam: Patient is awake, alert, and oriented 3 Vital signs stable Good chest excursion with deep inspiration and expiration Abdomen soft nontender Examination of lumbar spine reveals skin is intact with no abrasions, lacerations, or bruises; no erythema, purulence or signs of infection Mild pain with palpation along the midline of the lower lumbar spine Dorsiflexion, plantarflexion, and extensor hallucis longus positive sustained bilaterally Lower extremity strength 5/5 bilaterally but movements are much slower with the left lower extremity No profound weakness with the left lower extremity No lower extremity hyperreflexia bilaterally Straight leg test negative bilateral lower extremities Negative Lasegue's test bilaterally No signs or symptoms of DVT; no calf pain No pain with internal and external rotation of the hips bilaterally Neurovascularly intact Pertinent studies: CT of the lumbar spine taken on 01/31/2025: L4-5 degenerative disc disease with apparent large left herniated nucleus pulposus resulting in severe left foraminal stenosis and central canal stenosis; overall alignment is adequate maintained; no spondylolisthesis; no compression fracture deformity CT of the pelvis taken on 01/31/2025: No evidence of acute process; IUD present in the uterus; multiple suspected degenerating fibroids in the uterus Assessment: Intractable left lower extremity radiculopathy Low back pain Left L5 radiculopathy L4-5 degenerative disc disease L4-5 herniated nucleus pulposus with severe left foraminal stenosis and central canal stenosis Asthma Hyperlipidemia History uterine fibroids Obesity Claustrophobia Plan: 1. Patient has been experiencing low back pain with severe left lower extremity radiculopathy which has been significantly worsening over the past week. She is had treatment and evaluation through her primary care provider's office and presented to the emergency twice because of her symptoms. Her symptoms have not been well-controlled and she was admitted for further evaluation. Lumbar CT imaging does show apparent L4-5 large left paracentral disc herniation with severe left and central canal stenosis. Currently, we will plan to obtain lumbar MRI imaging for better visualization of her lumbar intervertebral discs, nerves, and spinal cord. Following completion and reviewing of lumbar MRI imaging, we will follow-up with the patient to discuss her results and further treatment options. Patient admits to claustrophobia. We will prescribe Valium 5 mg 1-2 tabs prior to her lumbar MRI imaging. Imaging was ordered yesterday. Safety sheet was just sent to MRI this morning. Nursing states they are waiting for MRI scheduled time. Patient may continue with Solu-Medrol 80 mg IV every 8 hours, baclofen 10 mg, and Tylenol #3 as prescribed as needed for pain control. 2. Patient will continue be seen examined by medicine. 3. Currently, patient would like to try to work through conservative treatment options. Consultation has been placed with pain management who has not yet seen the patient.
[2025-02-02] MEDS: MULTIVITAMINS, THERA 1 EACH TAB PO SCH (08:46)
[2025-02-02] MEDS: PSEUDOEPHEDRINE 12HR 120 MG TABLET.ER PO SCH (08:46)
[2025-02-02] MEDS: LIDOCAINE 4% PATCH TOPICAL PRN (20:22)
--- NOTE | 2025-02-02 20:38 | P.PN ---
Progress Note - Text Progress Note Date: 02/02/25 Chief Complaint: Back pain Very pleasant 44-year-old patient follows with Dr. Christa Arvizu. Chronic medical condition include asthma, GERD, hyperlipidemia. Chronic thrombocytosis from genetic mutation./Essential thrombocythemia. Insomnia, chronic sinus Patient is accompanied by her father in the room. Patient states she has had back pain since the age of 18. Later felt to be sciatica with some flareup on on and off. And also has had some slight herniate d disc. 2 years ago she started having increasing flareups. But continue to manage with therapy and acupuncture. In 2016 she also had 2 epidural shots. With some help. 10 days ago patient started having far more increased pain and in the 5 days pain became unbearable. She has been following with a chiropractor. She is supposed to see orthopedic spine on February 24 through her family doctor. She does get the pain that radiates down the left leg to the back and from the knee goes down to the foot. Also suffers from muscle spasms. Now the patient is hardly having trouble walking. No involvement of bowel or bladder. Finding it difficult to sit on the toilet seat. February 02: Pain medications changed by orthopedics. They have the patient IV Solu- Medrol. Pain management team has been consulted. Pending MRI. Discussed with the patient and father at the bedside.. Patient still has some trouble sitting. Active Medications Acetaminophen/Codeine Phosphate (Acetaminophen-Codeine 300-30mg Tab) 1 each PO Q6HR DEDE Last Admin: 02/02/25 17:59 Dose: 1 each Albuterol Sulfate (Albuterol Nebulized 2.5 Mg/3 Ml) 2.5 mg INHALATION RT-QID PRN PRN Reason: Shortness Of Breath Last Admin: 02/01/25 23:44 Dose: 2.5 mg Amitriptyline HCl (Amitriptyline Hcl 25 Mg Tab) 25 mg PO HS DEDE Last Admin: 02/02/25 20:22 Dose: 25 mg Atorvastatin Calcium (Atorvastatin 20 Mg Tab) 20 mg PO HS DEDE Last Admin: 02/02/25 20:22 Dose: 20 mg Baclofen (Baclofen 10 Mg Tab) 10 mg PO TID PRN PRN Reason: Muscle Spasm Last Admin: 02/02/25 17:58 Dose: 10 mg Budesonide/Formoterol Fumarate (Symbicort 160-4.5 Mcg Inhaler) 2 puff INHALATION RT-BID [facility] Last Admin: 02/02/25 08:14 Dose: 2 puff Gabapentin (Gabapentin 300 Mg Cap) 300 mg PO Q8H PRN PRN Reason: nerve pain Last Admin: 02/02/25 17:58 Dose: 300 mg Hydroxyurea (Hydroxyurea 500 Mg Cap) 500 mg PO DAILY [facility] Last Admin: 02/02/25 08:45 Dose: 500 mg Lidocaine (Lidocaine 4% Patch) 1 patch TOPICAL DAILY PRN; Protocol PRN Reason: Pain Last Admin: 02/02/25 20:22 Dose: 1 patch Loratadine (Loratadine 10 Mg Tab) 10 mg PO DAILY [facility] Last Admin: 02/02/25 08:45 Dose: 10 mg Methylprednisolone Sodium Succinate (Methylprednisolone Sod Succi 125 Mg/2 Ml Vial) 80 mg IV Q8HR [facility] Last Admin: 02/02/25 16:51 Dose: 80 mg Montelukast Sodium (Montelukast 10 Mg Tab) 10 mg PO HS [facility] Last Admin: 02/02/25 20:22 Dose: 10 mg Multivitamins (Multivitamins, Thera 1 Each Tab) 1 each PO DAILY [facility] Last Admin: 02/02/25 08:46 Dose: 1 each Naloxone HCl (Naloxone 0.4 Mg/Ml 1 Ml Vial) 0.2 mg IV Q2M PRN PRN Reason: Opioid Reversal Pantoprazole Sodium (Pantoprazole 40 Mg Tablet) 40 mg PO AC-BRKFST [facility] Last Admin: 02/02/25 06:37 Dose: 40 mg Pseudoephedrine HCl (Pseudoephedrine 12hr 120 Mg Tablet.Er) 120 mg PO DAILY [facility] Last Admin: 02/02/25 08:46 Dose: 120 mg Tiotropium [place] (Tiotropium 2.5 Mcg Inhaler) 2 puff INHALATION RT-DAILY [facility] Last Admin: 02/02/25 08:14 Dose: 2 puff Social history: Employed at [employer]. No smoking alcohol. Lives with her parents Physical examination: VITAL SIGNS: 98, 120, 16, 142 x 91, 96% room air GENERAL: BMI 37.6, sitting up in bed, not in distress EYES: Pupils equal. Conjunctiva amie l. HEENT: External appearance of nose and ears normal, oral cavity grossly normal. NECK: JVD not raised; masses not palpable. HEART: First and second heart sounds are normal; no edema. LUNGS: Respiratory rate normal; clear to auscultation. ABDOMEN: Soft, nontender, liver spleen not palpable, no masses palpable. PSYCH: Alert and oriented x3; mood and affect slightly anxious l. MUSCULOSKELETAL:No Clubbing/cyanosis;muscles-grossly intact. INVESTIGATIONS, reviewed in the clinical context: Lumbar CT scan: L4-L5 eccentric left disc extrusion with mild to moderate spinal canal stenosis likely effacing multiple nerve roots. Assessment plan: - Acute on chronic low back pain: Present for a long time. Symptoms got started getting worse in last 2 years. With increasing flareup. Patient does go to the chiropractic. Some physical therapy. Pain becomes more severe in the last 10 especially in the last 5 days really having trouble walking. No involvement of bowel up bladder. CT scan findings as above. Pain medication management orders changed by orthopedics. Anesthesia pain management team consulted. On IV Solu-Medrol Pending MRI - Left leg radiculopathy from herniated disc Pain control - L4-L5, extensive disc extrusion, impinging on many nerves Orthopedic following MRI ordered - Chronic insomnia Trazodone, Elavil - Acute on chronic neuropathic pain Elavil. Neurontin. - GERD PPI - Moderate persistent asthma Albuterol as needed. Trelegy Ellipta - Chronic sinusitis Sudafed 12-hour - Essential thrombocythemia Hydroxyurea - Hyperlipidemia Lipitor Pain medications per orthopedics. They have consulted anesthesia for pain management. MRI pending. Past Medical History Past Medical History: Asthma, GERD/Reflux, Hyperlipidemia, Musculoskeletal Disorder Additional Past Medical History / Comment(s): Back Pain Radiating Down CHANDLER LEGS, sciatic nerve Lt. leg. hx. 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 wisdom Teeth. PAIN PROC. EGD. uterine artery embolization. Past Anesthesia/Blood Transfusion Reactions: No Reported Reaction, Motion Sickness Additional Past Anesthesia/Blood Transfusion Reaction / Comment(s): Bibiana has had hard time coming out of Anesthesia X1 W/ CAT SCAN W/ SEDATION. Past Psychological History: No Psychological Hx Reported Smoking Status: Never smoker Past Alcohol Use History: None Reported Past Drug Use History: None Reported
--- NOTE | 2025-02-03 08:11 | P.PN ---
Progress Note - Text Progress Note Date: 02/03/25 The patient is seen and examined at bedside. I have reviewed her imaging and the dictations above. She says her back pain may be slightly better. She is still having significant radicular pain. She denies worsening of her neurologic status. She denies any changes in bowel or bladder function. She has remained afebrile. She is sitting up in bed. Abdomen soft nontender. Upper extremities have full active passive range of motion. Her lower extremity neurologic exam does not change. She did not have any worsening of her strength. Her thighs and calves soft nontender. Assessment plan Intractable low back pain with radiculopathy spinal stenosis Acute on chronic back pain with possible new disc herniation The patient is scheduled for MRI today and interventional pain management has seen over the possibility of epidural steroid injections. I think that that is a good option for her as she may have significant improvement with epidural steroid injections. Will have more information with the MRI and consider further options whether they are further interventional pain management or even the possibly of surgical intervention. I discussed this with her today. It is okay for her to try to mobilize as she is comfortable and from a spine standpoint it is okay for her to discharge when she is able to manage her pain at with close follow-up as an outpatient.
--- NOTE | 2025-02-03 08:39 | P.PAINCN ---
History of Present Illness - Reason for Consult Consult date: 02/03/25 - History of Present Illness This is 44 years old female who was admitted to [facility] secondary to severe intractable low back pain with radiation to the left lower extremity, patient reported that she had pain for few months but over the last few days intensity of the pain increased significantly to the degree that she is not able to ambulate, the pain localized in the low back area with radiation to the left lower extremity to the top of the left foot, patient denies any initiating event, she denies any fever or night sweats she denies any change in the bowel movement or urination, patient tried physical therapy and practice without any benefit, patient tried medication management without any benefit, currently on Neurontin 300 mg 3 times daily and 3q60) and baclofen 10 mg 3 times daily and she continued to have severe low back pain Past Medical History Past Medical History: Asthma, GERD/Reflux, Hyperlipidemia, Musculoskeletal Disorder Additional Past Medical History / Comment(s): Back Pain Radiating Down CHANDLER LEGS, sciatic nerve Lt. leg. hx. 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 wisdom Teeth. PAIN PROC. EGD. uterine artery embolization. Past Anesthesia/Blood Transfusion Reactions: No Reported Reaction, Motion Sickness Additional Past Anesthesia/Blood Transfusion Reaction / Comm: Grandma has had hard time coming out of Anesthesia X1 W/ CAT SCAN W/ SEDATION. Past Psychological History: No Psychological Hx Reported Smoking Status: Never smoker Past Alcohol Use History: None Reported Past Drug Use History: None Reported - Past Family History Mother Family Medical History: No Reported History Medications and Allergies Home Medications Medication Instructions Recorded Confirmed Type Acetaminophen-Codeine 300-30mg 1 tab PO Q6H PRN 10/02/16 02/01/25 History [Tylenol w/codeine #3] Amitriptyline HCl [Elavil] 25 mg PO HS 10/02/16 02/01/25 History Montelukast [Singulair] 10 mg PO HS 10/02/16 02/01/25 History Omeprazole [PriLOSEC] 20 mg PO BID 10/02/16 02/01/25 History Vitamin C/Biotin [Hair, Skin and 1 tab PO DAILY 10/03/16 02/01/25 History Nails Chew] Fexofenadine HCl [Stephanie Allergy] 180 mg PO DAILY 02/09/17 02/01/25 History Atorvastatin [Lipitor] 20 mg PO HS 02/29/24 02/01/25 History Multivitamins, Thera [Multivitamin 1 tab PO DAILY 02/29/24 02/01/25 History (formulary)] traZODone HCL [Desyrel] 50 mg PO HS PRN 02/29/24 02/01/25 History Hydroxyurea [Hydrea] 500 mg PO DAILY 06/21/24 02/01/25 History methocarbamoL [Robaxin-750] 750 mg PO BID PRN 06/21/24 02/01/25 History Albuterol Sulfate [Albuterol 1 puff INHALATION RT-Q4H PRN 09/03/24 02/01/25 History Sulfate Hfa] Fluticasone/Umeclidin/Vilanter 1 puff INHALATION RT-DAILY 09/03/24 02/01/25 History [Trelegy Ellipta 200-62.5-25] Albuterol Nebulized [Ventolin 2.5 mg INHALATION RT-QID PRN 02/01/25 02/01/25 History Nebulized] Gabapentin [Neurontin] 300 mg PO Q8H PRN 02/01/25 02/01/25 History Pseudoephedrine 12Hr [Sudafed 12 120 mg PO DAILY 02/01/25 02/01/25 History Hour] predniSONE See Taper PO DIRECTED 02/01/25 02/01/25 History Allergies Allergy/AdvReac Type Severity Reaction Status Date / Time Sulfa (Sulfonamide Allergy Severe Anaphylaxis Verified 02/01/25 09:16 Antibiotics) amoxicillin Allergy Anaphylaxis Verified 02/01/25 09:16 ciprofloxacin [From Cipro] Allergy Anaphylaxis Verified 02/01/25 09:16 Penicillins Allergy Anaphylaxis Verified 02/01/25 09:16 sulfamethoxazole Allergy Anaphylaxis Verified 02/01/25 09:16 [From Bactrim] trimethoprim [From Bactrim] Allergy Anaphylaxis Verified 02/01/25 09:16 Physical Exam Vitals: Vital Signs Temp Pulse Resp BP Pulse Ox 02/03/25 01:10 98.3 F 110 H 18 135/83 95 02/02/25 19:24 98.5 F 116 H 18 137/91 96 02/02/25 14:28 98.0 F 128 H 16 142/91 96 Intake and Output 02/02/25 02/03/25 02/03/25 22:59 06:59 14:59 Other: Voiding Method Toilet # Voids 6 3 Physical Examinations : -Constitutiona : Cooperative , not in acute distress . -HEENT : nech : supple , no Lymphadenopathy , normal thyroid size . : eyes : no ptosis , no icterus, no photophobia . - neurologic : Cranial nerve II to XII intact , no focal neurological deffecit . -psychatric : alert , oriented X 3 , appropriate affect , intact judgment and insight . -Lymphatic : no Lymphadenopathy . - musculoskeltal : Lumber spine moter stegnth lower extremities ,thigh and legs 5/5 Right side , 4/5 Left side deep tendon reflexes : normal Knee Jerk , normal ankle Jerk lumber facet Loading Test =positive Right , positive Left Range of motion of the lumbar spine Flexion 30 degrees, extension 10 degrees strait leg raising test = positive at 30 degree on the left side and negative on the right side Fabere test= positive Right , and positive LT . Sever tenderness over the Sacroiliac joint on the Left sides Multiple trigger point identified in the left side lumbar paraspinal muscles L1-S1 = Results Comments: CT scan of the lumbar spine left L4-5 disc herniation and moderate L4-5 spinal stenosis Assessment and Plan Plan: Assessment and plan=1-lumbar radiculopathy. 2-lumbar spinal stenosis. 3-lumbar disc herniation. 4-myofascial pain syndrome lumbar paraspinal muscles. She could benefit from lumbar epidural steroid injection at L4-5 level left paramedian approach, also she could benefit from trigger point injection left side lumbar paraspinal muscles. Time with Patient: Less than 30 PQRS Measure Charge Sheet - Pain Location Back Non-Pharmacological Interventions: Darkened Room, Distraction Pharmacological Interventions: Discuss Pain Med Options PQRS Narrative: Smoking Status Never smoker Blood Pressure [Left Arm] 135/83 Blood Pressure 138/94 Pain Intensity [Back] 8 Pain Intensity 9 Pain Scale Used Numeric (1 - 10) Scale Used Numeric (1 - 10) Hx Alcohol Use (MH) Yes: rare Home Medications: Ambulatory Orders Acetaminophen-Codeine 300-30mg [Tylenol w/codeine #3] 1 tab PO Q6H PRN 10/02/16 Amitriptyline HCl [Elavil] 25 mg PO HS 10/02/16 Montelukast [Singulair] 10 mg PO HS 10/02/16 Omeprazole [PriLOSEC] 20 mg PO BID 10/02/16 Vitamin C/Biotin [Hair, Skin and Nails Chew] 1 tab PO DAILY 10/03/16 Fexofenadine HCl [Stephanie Allergy] 180 mg PO DAILY 02/09/17 Atorvastatin [Lipitor] 20 mg PO HS 02/29/24 Multivitamins, Thera [Multivitamin (formulary)] 1 tab PO DAILY 02/29/24 traZODone HCL [Desyrel] 50 mg PO HS PRN 02/29/24 Hydroxyurea [Hydrea] 500 mg PO DAILY 06/21/24 methocarbamoL [Robaxin-750] 750 mg PO BID PRN 06/21/24 Albuterol Sulfate [Albuterol Sulfate Hfa] 1 puff INHALATION RT-Q4H PRN 09/03/24 Fluticasone/Umeclidin/Vilanter [Trelegy Ellipta 200-62.5-25] 1 puff INHALATION RT-DAILY 09/03/24 Albuterol Nebulized [Ventolin Nebulized] 2.5 mg INHALATION RT-QID PRN 02/01/25 Gabapentin [Neurontin] 300 mg PO Q8H PRN 02/01/25 Pseudoephedrine 12Hr [Sudafed 12 Hour] 120 mg PO DAILY 02/01/25 predniSONE See Taper PO DIRECTED 02/01/25
[2025-02-03 08:50] VITALS: RESP 16; TEMP 98.4
[2025-02-03] MEDS: diazePAM 5 MG TAB PO STA ×2 (08:55→09:35)
--- NOTE | 2025-02-03 10:44 | MR ---
EXAMINATION TYPE: MR lumbar spine wo con DATE OF EXAM: 02/03/2025 10:16 AM COMPARISON: 01/31/2025, mri 10/16/2016 CLINICAL INDICATION: Female, 44 years old with history of Left lower extremity radiculopathy; L4-5 HN P, Lower back pain with tingling down left leg. TECHNIQUE: Multi planar, multi sequence imaging was performed utilizing: T1-weighted, T2-weighted, a nd turbo inversion recovery imaging of the lumbar spine. IV Contrast: mL (None, if empty) FINDINGS: Alignment: The lumbar vertebral bodies have preserved heights and alignment. Cord: The conus medullaris and the distal spinal cord appear unremarkable with regards to their signa l intensity and morphology. Bones/Discs: Minimal disc degeneration changes worse at L5-S1 with disc space narrowing, osteophytes and Modic endplate changes. Intervertebral disc signal is maintained. No abnormal inversion recovery signal to suggest bony edema. T12-L1: No evidence of significant spinal canal stenosis or neural foraminal stenosis. L1-L2: No evidence of significant spinal canal stenosis or neural foraminal stenosis. L2-L3: No evidence of significant spinal canal stenosis or neural foraminal stenosis. L3-L4: No evidence of significant spinal canal stenosis or neural foraminal stenosis. L4-L5: Left central large disc extrusion with displacement of multiple nerve roots forming including left L5-S1 and S1-S2. The neural foramen are patent. There is 6 mm of disc material extends inferiorl y. L5-S1: The disc has a rounded posterior morphology without significant spinal canal stenosis. Facet j oint arthropathy with mild bilateral neural foraminal stenosis. No significant spinal canal or neural foraminal stenosis in the remainder of the visualized levels. Other findings: None. IMPRESSION: L4-L5 left central large disc extrusion displacing multiple nerve roots including the forming L5-S1/S 1-S2 roots in the thecal sac with extension of disc material 6 mm inferiorly. This is progressed from prior in 2017. [facility], , 02/03/2025 10:42 AM
[2025-02-03] MEDS ORDERED: ROPIVACAINE 5MG/ML 20ML VIAL ONE (13:08)
[2025-02-03] MEDS ORDERED: IOPAMIDOL M200 10 ML VIAL ONE (13:08)
[2025-02-03] MEDS ORDERED: methylPREDNISolone ACETATE 80 MG/ML 1 ML VIAL ONE (13:08)
[2025-02-03] MEDS ORDERED: fentaNYL (PF) 50 MCG/ML 2 ML AMP ONE (13:08)
--- NOTE | 2025-02-03 13:24 | FL ---
EXAMINATION TYPE: FL guided pain mgmt statistic Intraoperative/procedural fluoroscopic services were provided. CLINICAL INDICATION:Female, 44 years old with history of LESI LOW BACK PAIN; , [facility] FINDINGS: Fluoroscopic image demonstrating lumbar epidural steroid injection. No radiographic evidence for comp lication. Total fluoroscopy time is 5.1 seconds. DAP: [id number] [id number] Please see the operative/procedural note for further details. [facility], , 02/03/2025 1:22 PM
--- NOTE | 2025-02-03 13:25 | P.PCN ---
Date of Procedure: 02/03/25 Procedure(s) Performed: PREOPERATIVE DIAGNOSIS: 1- Lumbar herniated disc Diseases 2-Lumbar radiculopathy. 3-lumbar spinal stenosis 4-fascial pain syndrome lumbar area. POSTOPERATIVE DIAGNOSIS: Same as preop diagnosis PROCEDURE 1. Lumbar epidural steroid injection under fluoroscopic guidance at the L4-5 level. (Fluoroscopy imaging was available in radiology department) 2. Lumbar epidurogram. 3-trigger point injection left side lumbar paraspinal muscle L1-S1 (total of 6 trigger point injected on the left side lumbar paraspinal muscle) ANESTHESIA: Lidocaine 1% 3 and . (Moderate sedation with fentanyl 100 mcg sedation started 13:08< ended 13:17 ) EBL: Minimal PROCEDURE INDICATION: The patient with low back pain and radiculitis symptoms unresponsive to conservative treatment. Fluoroscopy was used to optimize visualization of the needle placement and to maximize safety. PROCEDURE DESCRIPTION / TECHNIQUE: The patient was seen and identified in the preoperative area. Risks, benefits, complications including but not limited to infections ,bleeding ,allergic reaction to the medications ,nerve damage and not complete pain releife , and alternatives were discussed with the patient. The patient agreed to proceed with the procedure and signed the consent, and vital signs were stable. Patient was taken to the OR and time out was completed. The patient was placed in the prone position on procedure table and a pillow was placed under the abdomen to reduce lumbar lordosis. The lumbosacral area was prepped and draped in the usual sterile fashion.ere closely monitored during the procedure. Vital signs was monitered during the entire procedure. Using anterior-posterior fluoroscopy, the L4-5 interlaminar space was identified and the skin over this site was marked and then infiltrated with 1% lidocaine subcutaneously. Subsequently, a 20-gauge Tuohy epidural needle was inserted and advanced toward the epidural space using the ``Loss of resistance technique and guided by AP and lateral fluoroscopy. The correct needle position in the epidural space was verified with the injection of 2 mL of the water soluble contrast dye Isovue 200 contrast and observing an excellent epidurogram with the epidural spread of the dye, after negative aspiration for blood and CSF and in the absence of paresthesias. Again after negative aspiration, a 6 ml mixture containing 60 mg of Depo-medrol ( Preservetive Free ), and 2 ml of preservative free Normal Saline, and 2 ml of preservative free lidocaine 1% solution was injected and a washout of epidurogram was seen. Needle was withdrawn intact, And after that the trigger point injection done under sterile technique each of the trigger point injected with a mixture of ropivacaine 0.5% 12 mL mixed with the 20 mg of Depo-Medrol total of 6 trigger point was identified in the left side lumbar paraspinal muscles from L1-S1 each one of them injected with the mixture, 2 mL of the mixture injected after negative aspiration using 25-gauge needle, patient tolerated the procedure well without any complications COMPLICATIONS: None DISPOSITION / PLANS: The patient was placed in a supine position and transferred to the recovery area in a stable condition for observation. There was no evidence of lower extremity motor or sensory deficit after the procedure. Patient was discharged from the recovery room after meeting discharge criteria. Home discharge instructions were given to the patient by the staff. The patient was reexamined prior to discharge. The patient will schedule a follow up in the clinic in 2-4 weeks.
[2025-02-03 13:39] VITALS: BP 153/94; PULSE 118
--- NOTE | 2025-02-04 18:04 | P.DS ---
Providers Date of admission: 01/31/25 23:09 Expected date of discharge: 02/03/25 Attending physician: Parag Robert Consults: 01/31/25 23:03 Consult Physician Routine Consulting Provider: Kita Bryson Consult Reason/Comments: intractable back pain Do you want consulting provider notified?: Yes Primary care physician: Janell Arvizu [facility] Course: Chief Complaint: Back pain Very pleasant 44-year-old patient follows with Dr. Christa Arvizu. Chronic medical condition include asthma, GERD, hyperlipidemia. Chronic thrombocytosis from genetic mutation./Essential thrombocythemia. Insomnia, chronic sinus Patient is accompanied by her father in the room. Patient states she has had back pain since the age of 18. Later felt to be sciatica with some flareup on on and off. And also has had some slight herniated disc. 2 years ago she started having increasing flareups. But continue to manage with therapy and acupuncture. In 2016 she also had 2 epidural shots. With some help. 10 days ago patient started having far more increased pain and in the 5 days pain became unbearable. She has been following with a chiropractor. She is supposed to see orthopedic spine on February 24 through her family doctor. She does get the pain that radiates down the left leg to the back and from the knee goes down to the foot. Also suffers from muscle spasms. Now the patient is hardly having trouble walking. No involvement of bowel or bladder. Finding it difficult to sit on the toilet seat. February 02: Pain medications changed by orthopedics. They have the patient IV Solu- Medrol. Pain management team has been consulted. Pending MRI. Discussed with the patient and father at the bedside.. Patient still has some trouble sitting. February 03: Patient informed of the MRI results. Patient underwent a lumbar epidural injection and trigger point injection with 60 mg of Depo-Medrol was injected, by pain services Dr. Livingston. Patient overall has been feeling better. Able to ambulate reasonably well. Mother is present. Patient be discharged follow-up with Dr. Bryson from orthopedics and pain management team. Questions answered Social history: Employed at [employer]. No smoking alcohol. Lives with her parents Physical examination: VITAL SIGNS: 98.4, 105, 16, 1 4789, 98% room air GENERAL: BMI 37.6, sitting up in bed, for more comfortable EYES: Pupils equal. Conjunctiva amie l. HEENT: External appearance of nose and ears normal, oral cavity grossly normal. NECK: JVD not raised; masses not palpable. HEART: First and second heart sounds are normal; no edema. LUNGS: Respiratory rate normal; clear to auscultation. ABDOMEN: Soft, nontender, liver spleen not palpable, no masses palpable. PSYCH: Alert and oriented x3; mood and affect slightly anxious l. MUSCULOSKELETAL:No Clubbing/cyanosis;muscles-grossly intact. INVESTIGATIONS, reviewed in the clinical context: MRI lumbar spine: L4-L5, left central large disc extrusion displacing multiple nerve roots including following L5-S1 S1 L2 roots in the thecal sac. With extension of disc material 6 mm inferiorly. Which is progressed since 2017. Urine hCG: Negative Lumbar CT scan: L4-L5 eccentric left disc extrusion with mild to moderate spinal canal stenosis likely effacing multiple nerve roots. Assessment plan: - Acute on chronic low back pain: Present for a long time. Symptoms got started getting worse in last 2 years. With increasing flareup. Patient does go to the chiropractic. Some physical therapy. Pain becomes more severe in the last 10 especially in the last 5 days really having trouble walking . No involvement of bowel up bladder. CT scan findings as above. MRI lumbar spine: L4-L5, left central large disc extrusion displacing multiple nerve roots including following L5-S1 S1 L2 roots in the thecal sac. With extension of disc material 6 mm inferiorly. Which is progressed since 2017.: Because of the above Received. On IV Solu-Medrol Epidural Depo-Medrol injection done. - Left leg radiculopathy from herniated disc Pain control - L4-L5, extensive disc extrusion, impinging on many nerves Orthopedic following Received epidural - Chronic insomnia Trazodone, Elavil - Acute on chronic neuropathic pain Elavil. Neurontin. - GERD PPI - Moderate persistent asthma Albuterol as needed. Trelegy Ellipta - Chronic sinusitis Sudafed 12-hour - Essential thrombocythemia Hydroxyurea - Hyperlipidemia Lipitor Disposition: Home Past Medical History Past Medical History: Asthma, GERD/Reflux, Hyperlipidemia, Musculoskeletal Disorder Additional Past Medical History / Comment(s): Back Pain Radiating Down CHANDLER LEGS, sciatic nerve Lt. leg. hx. 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 wisdom Teeth. PAIN PROC. EGD. uterine artery embolization. Past Anesthesia/Blood Transfusion Reactions: No Reported Reaction, Motion Sickness Additional Past Anesthesia/Blood Transfusion Reaction / Comment(s): Bibiana has had hard time coming out of Anesthesia X1 W/ CAT SCAN W/ SEDATION. Past Psychological History: No Psychological Hx Reported Smoking Status: Never smoker Past Alcohol Use History: None Reported Past Drug Use History: None Reported Plan - Discharge Summary Discharge Rx Participant: No New Discharge Prescriptions: New predniSONE 10 mg PO DAILY #30 tab Baclofen [Lioresal] 10 mg PO TID PRN #90 tab PRN Reason: Muscle Spasm Continue Omeprazole [PriLOSEC] 20 mg PO BID Amitriptyline HCl [Elavil] 25 mg PO HS Montelukast [Singulair] 10 mg PO HS Vitamin C/Biotin [Hair, Skin and Nails Chew] 1 tab PO DAILY Fexofenadine HCl [Stephanie Allergy] 180 mg PO DAILY traZODone HCL [Desyrel] 50 mg PO HS PRN PRN Reason: Insomnia Multivitamins, Thera [Multivitamin (formulary)] 1 tab PO DAILY Hydroxyurea [Hydrea] 500 mg PO DAILY Fluticasone/Umeclidin/Vilanter [Trelegy Ellipta 200-62.5-25] 1 puff INHALATION RT-DAILY Acetaminophen-Codeine 300-30mg [Tylenol w/codeine #3] 1 tab PO Q6H PRN #60 tab PRN Reason: Pain Atorvastatin [Lipitor] 20 mg PO HS Albuterol Sulfate [Albuterol Sulfate Hfa] 1 puff INHALATION RT-Q4H PRN PRN Reason: Shortness Of Breath Albuterol Nebulized [Ventolin Nebulized] 2.5 mg INHALATION RT-QID PRN PRN Reason: Shortness Of Breath Pseudoephedrine 12Hr [Sudafed 12 Hour] 120 mg PO DAILY Gabapentin [Neurontin] 300 mg PO Q8H PRN PRN Reason: nerve pain Discontinued predniSONE See Taper PO DIRECTED methocarbamoL [Robaxin-750] 750 mg PO BID PRN PRN Reason: back pain Discharge Medication List Amitriptyline HCl [Elavil] 25 mg PO HS 10/02/16 [History] Montelukast [Singulair] 10 mg PO HS 10/02/16 [History] Omeprazole [PriLOSEC] 20 mg PO BID 10/02/16 [History] Vitamin C/Biotin [Hair, Skin and Nails Chew] 1 tab PO DAILY 10/03/16 [History] Fexofenadine HCl [Stephanie Allergy] 180 mg PO DAILY 02/09/17 [History] Atorvastatin [Lipitor] 20 mg PO HS 02/29/24 [History] Multivitamins, Thera [Multivitamin (formulary)] 1 tab PO DAILY 02/29/24 [History] traZODone HCL [Desyrel] 50 mg PO HS PRN 02/29/24 [History] Hydroxyurea [Hydrea] 500 mg PO DAILY 06/21/24 [History] Albuterol Sulfate [Albuterol Sulfate Hfa] 1 puff INHALATION RT-Q4H PRN 09/03/24 [History] Fluticasone/Umeclidin/Vilanter [Trelegy Ellipta 200-62.5-25] 1 puff INHALATION RT-DAILY 09/03/24 [History] Albuterol Nebulized [Ventolin Nebulized] 2.5 mg INHALATION RT-QID PRN 02/01/25 [History] Gabapentin [Neurontin] 300 mg PO Q8H PRN 02/01/25 [History] Pseudoephedrine 12Hr [Sudafed 12 Hour] 120 mg PO DAILY 02/01/25 [History] Acetaminophen-Codeine 300-30mg [Tylenol w/codeine #3] 1 tab PO Q6H PRN #60 tab 02/03/25 [Rx] Baclofen [Lioresal] 10 mg PO TID PRN #90 tab 02/03/25 [Rx] predniSONE 10 mg PO DAILY #30 tab 02/03/25 [Rx] Follow up Appointment(s)/Referral(s): Kita Bryson DO [Doctor of Osteopathic Medicine] - 1 Week Janell Arvizu MD [Primary Care Provider] - 1-2 days [facility] [NON-STAFF] - 1 Week Discharge/Stand Alone Forms: [facility] Instructions Discharge Disposition: HOME SELF-CARE
== END 2025-02-03 18:30 | disposition home or self-care (01) | DRG 552 ==
LOC: EC 16:11 → OBSVTOIN 23:09 → 6NMEDSUR 23:09 → 5NMEDONC 02-01 04:26 → 4SSUR 02-01 09:57
PROVIDERS: ADMIT Hospitalist; ATTEND Hospitalist
PROC: 3E0R3BZ Introduction of Anesthetic Agent into Spinal Canal, Percutaneous Approach (ICD-10-PCS; principal; 2025-02-03 11:30)
PROC: 3E0R33Z Introduction of Anti-inflammatory into Spinal Canal, Percutaneous Approach (ICD-10-PCS; principal; 2025-02-03 11:30)
DX: M48.061 Spinal stenosis, lumbar region without neurogenic claudication (principal); D47.3 Essential (hemorrhagic) thrombocythemia; J45.40 Moderate persistent asthma, uncomplicated; E66.9 Obesity, unspecified; F40.240 Claustrophobia; G89.29 Other chronic pain; K21.9 Gastro-esophageal reflux disease without esophagitis; M51.16 Intervertebral disc disorders with radiculopathy, lumbar region; F51.04 Psychophysiologic insomnia; J32.9 Chronic sinusitis, unspecified; E78.00 Pure hypercholesterolemia, unspecified; E78.5 Hyperlipidemia, unspecified; Z79.51 Long term (current) use of inhaled steroids; Z79.899 Other long term (current) drug therapy; Z88.1 Allergy status to other antibiotic agents; Z88.0 Allergy status to penicillin; Z88.8 Allergy status to other drugs, medicaments and biological substances
CPT/HCPCS: 20553; 62323; 72131; 72148; 72192; 81025; 94640; 96372; 96374; 96375; 96376; 99285

== ENCOUNTER → 2025-02-11 | Outpatient (CLI) | payer BC ==
[2025-02-11 09:21] VITALS: BP 142/97; PULSE 105; RESP 17
--- NOTE | 2025-02-11 15:51 | P.PAINPG ---
Objective - Vital Signs Vital signs: Intake & Output 02/10/25 02/11/25 02/11/25 18:59 06:59 18:59 Weight 108.862 kg PQRS Measure Charge Sheet Comment: A 44 yr old female w father at side with a history of severe and chronic LBP secondary to L4-S1 radiculopathy, spondylosis with facet arthropathy without myelopathy presents today for evaluation s/p JUDSON L4-L5 #1. Pt states she experienced 50 % pain relief x 1 wk s/p procedure. Pain level is provoked at 9- 10 /10 in intensity, constant, predominantly axial, localized in the lumbar spine, sharp in character w occasional shooting towards the LEs, L> R. Pain is provoked by any movement. Pain is alleviated with PT x 2 wks in Dec 2024 which ended when she was admitted to the hospital for intractable back pain, chiropractic treatments semi monthly x 7 yrs which she is currently in, physician guided stretches every morning since Dec 2024, medications, topical, repositioning and rest. Oswestry axial pain score at 33. Interventional pain procedures completed include JUDSON L4-L5 x1 (02/22) Patient is currently on Tyl #3, Neurontin, Robaxin Patient denies any side effects of the medication(s), denies excessive drowsiness or sleepiness, denies suicidal ideation and reports that the current pain medication is helping to control the pain and improve activities of daily living. Patient denies any motor or sensory deficits. Patient denies any fever or night sweats, denies any change in the bowel movements or urination. Physical Examination: -Constitutional: Cooperative. Not in acute distress . - Neurologic: Cranial nerve II to XII intact. No focal neurological deficits. - Psychatric: Alert & oriented x 3. Matching mood & appropriate affect. Judgment and insight intact. - Musculoskeletal: Cervical spine: Muscle bulk/ tone/ strength in the bilateral upper extremities normal Vertebral body tenderness to palpation over Spurling test positive Distraction test positive Facet loading test positive TTP Thoracic spine Muscle bulk / tone/ strength in the bilateral paraspinal muscles normal Vertebral body tender to palpation over Facet loading test positive TTP Lumbar spine: Motor bulk/ tone/ strength lower extremities , thigh and legs : 5/5 Deep tendon reflexes : Normal Knee Jerk. Normal Ankle Jerk . Vertebral body tenderness to palpation over L4 Vaca Test positive Lumbar Facet Loading Test positive Straight Leg Raise: positive at 30 degrees right side < left side Gaenslen's Test positive Sacral spine : Severe tenderness over the Sacroiliac joint: right side / left side Range of motion: Flexion of the lumbar spine <60 degrees Range of motion: Extension of the lumbar spine <20 degrees Gaenslen's Test positive right side / left side Efrem test: positive right side / left side Thigh Thrust Test positive right side / left side Sacral Thrust Test positive right side / left side Imaging: MRI non contrast lumbar spine from 02/03/[address] non contrast lumbar spine from 01/31/25 reviewed Assessment and plan: Chronic LBP secondary to L4-S1 radiculopathy, spondylosis with facet arthropathy without myelopathy Recommendation of BL TFESI L4-L5 #2. Risks, benefits of procedure discussed and pt verbalized understanding. Admits to anticoagulant use or medical history of diabetes. All questions answered. I have spent less than 30 minutes on patient care today. Dr Livingston was available by phone for the evaluation of this patient. The time was used to review the medical records including relevant urine studies and Prescription history (MAPs), review of the available imaging, evaluation and examination of the patient, coordination of care with the medical staff and if applicable referring physicians, as well as creation of the medical record - Pain Location Left Lower Back Non-Pharmacological Interventions: Heat, Ice Pharmacological Interventions: Medication PQRS Narrative: Smoking Status Never smoker Hx Alcohol Use (MH) Yes: rare Home Medications: Ambulatory Orders Amitriptyline HCl [Elavil] 25 mg PO HS 10/02/16 Montelukast [Singulair] 10 mg PO HS 10/02/16 Omeprazole [PriLOSEC] 20 mg PO BID 10/02/16 Vitamin C/Biotin [Hair, Skin and Nails Chew] 1 tab PO DAILY 10/03/16 Fexofenadine HCl [Stephanie Allergy] 180 mg PO DAILY 02/09/17 Atorvastatin [Lipitor] 20 mg PO HS 02/29/24 Multivitamins, Thera [Multivitamin (formulary)] 1 tab PO DAILY 02/29/24 traZODone HCL [Desyrel] 50 mg PO HS PRN 02/29/24 Hydroxyurea [Hydrea] 500 mg PO DAILY 06/21/24 Albuterol Sulfate [Albuterol Sulfate Hfa] 1 puff INHALATION RT-Q4H PRN 09/03/24 Fluticasone/Umeclidin/Vilanter [Trelegy Ellipta 200-62.5-25] 1 puff INHALATION RT-DAILY 09/03/24 Albuterol Nebulized [Ventolin Nebulized] 2.5 mg INHALATION RT-QID PRN 02/01/25 Gabapentin [Neurontin] 300 mg PO Q8H PRN 02/01/25 Pseudoephedrine 12Hr [Sudafed 12 Hour] 120 mg PO DAILY 02/01/25 Acetaminophen-Codeine 300-30mg [Tylenol w/codeine #3] 1 tab PO Q6H PRN #60 tab 02/03/25 Baclofen [Lioresal] 10 mg PO TID PRN #90 tab 02/03/25 predniSONE 10 mg PO DAILY #30 tab 02/03/25 Controlled Substance Measures - Controlled Substance Measures Is patient prescribed a controlled substance at discharge?: No
== END ==
LOC: PNWHC3 08:54
PROVIDERS: ATTEND Specialist
DX: M47.27 Other spondylosis with radiculopathy, lumbosacral region (principal); Z88.0 Allergy status to penicillin; Z88.1 Allergy status to other antibiotic agents; Z88.2 Allergy status to sulfonamides
CPT/HCPCS: 99212